=== PATIENT | female | born 1950 ===

== ENCOUNTER 2016-09-26 16:12 | Observation (INO) | payer OTHER ==
[2016-09-26] MEDS ORDERED: Aspirin 325 mg EC Tablets PO STA (17:16)
--- NOTE | 2016-09-26 17:43 | RAD ---
HISTORY: chest pain COMPARISON: None available. TECHNIQUE: Chest, one view. FINDINGS: LUNGS: No focal consolidation. Scattered probable punctate calcified granulomas. Please note that chest x-ray has limited sensitivity for the detection of pulmonary masses. PLEURA: No significant pleural effusion identified. No definite pneumothorax . CARDIOVASCULAR: The cardiomediastinal silhouette appears within normal limits of size. OSSEOUS STRUCTURES: Degenerative changes. VISUALIZED UPPER ABDOMEN: Unremarkable. OTHER FINDINGS: None. IMPRESSION: Scattered probable calcified granulomas. No focal consolidation, significant pleural effusion, or definite pneumothorax identified.
[2016-09-26 17:50] LABS: BASO # 0.1 K/uL (0.0-0.2); BASO % 0.9 % (0.0-2.0); EOS # 0.1 K/uL (0.0-0.7); EOS % 1.7 % (0.0-4.0); LYMPH % 35.2 % (20.0-40.0); MEAN CORPUSCULAR HEMOGLOBIN 29.2 pg (27.0-31.0); MEAN CORPUSCULAR HGB CONC 33.2 g/dL (33.0-37.0); MEAN PLATELET VOLUME 8.4 fL (7.2-11.7); MONO # 0.4 K/uL (0.0-0.8); MONO % 5.1 % (0.0-10.0); NEUT # 4.9 K/uL (1.8-7.0); NEUT % 57.1 % (50.0-75.0); RBC 3.76 Mil/uL (3.80-5.20); RED CELL DISTRIBUTION WIDTH 12.8 % (11.5-14.5); WHITE BLOOD COUNT 8.5 K/uL (4.8-10.8)
[2016-09-26 18:00] LABS: ALBUMIN 4.1 g/dL (3.5-5.0)
[2016-09-26 18:03] LABS: ALB/GLOB RATIO 1.1 (1.0-2.1); AST/SGOT 20 U/L (14-36); GFR AFRICAN-AMERICAN > 60; GFR NON-AFRICAN AMERICAN > 60
[2016-09-26 18:04] LABS: ALT/SGPT 30 U/L (9-52); BLOOD UREA NITROGEN 20 mg/dL (7-17); CALCIUM 8.9 mg/dl (8.6-10.4)
[2016-09-26 18:12] LABS: B-TYPE NATRIURETIC PEPTIDE 155 pg/mL (0-900)
[2016-09-26 18:14] LABS: URINE BILIRUBIN NEGATIVE (NEGATIVE); URINE BLOOD NEGATIVE (NEGATIVE); URINE CLARITY Clear (Clear); URINE COLOR Straw (YELLOW); URINE GLUCOSE (UA) NORMAL (Normal); URINE LEUKOCYTE ESTERASE NEG Leu/uL (Negative); URINE NITRATE NEGATIVE (NEGATIVE); URINE PROTEIN NEGATIVE (NEGATIVE); URINE UROBILINOGEN NORMAL mg/dL (0.2-1.0)
--- NOTE | 2016-09-26 18:35 | C.PDOC ---
History Of Present Illness Pt is a 65 yr old female with a PMH of HTN and DM who c/o left sided chest pain both last night and this morning. She's never had chest pain before (no hospitalizations or ER visits for CP). Pt went to her PMD Dr. Megan Solano and PMD recommended pt go to [facility] for an EKG. Pt w/ no chest pain now. When she did have the CP, it was worse with deep inspiration. PMD: Dr. Megan Solano Time Seen by Provider: 09/26/16 17:08 Chief Complaint (Nursing): Chest Pain History Per: Patient Past Medical History Reviewed: Historical Data, Nursing Documentation, Vital Signs Vital Signs: Last Vital Signs Temp 98.6 F 09/26/16 16:22 Pulse 67 09/26/16 16:22 Resp 20 09/26/16 16:22 BP 166/83 H 09/26/16 16:22 Pulse Ox 99 09/26/16 18:37 - Medical History PMH: Diabetes, HTN Surgical History: Appendectomy Family History: States: [place], CAD - Social History Hx Tobacco Use: No Hx Alcohol Use: No Hx Substance Use: No - Immunization History Hx Tetanus Toxoid Vaccination: No Hx Influenza Vaccination: Yes Hx Pneumococcal Vaccination: Yes Review Of Systems Review Of Systems: ROS cannot be obtained secondary to pt's inabilty to answer questions. Constitutional: Negative for: Fever Cardiovascular: Positive for: Chest Pain Respiratory: Positive for: Shortness of Breath Gastrointestinal: Negative for: Nausea, Vomiting Musculoskeletal: Negative for: Neck Pain Physical Exam - Physical Exam Appears: Well, Non-toxic, No Acute Distress Skin: Normal Color, Warm, Dry Head: Atraumatic Eye(s): bilateral: Normal Inspection, EOMI Ear(s): Bilateral: Normal Nose: Normal Oral Mucosa: Moist Tongue: Normal Appearing Lips: Normal Appearing Teeth: Normal Dentition Gingiva: Normal Appearing Throat: Normal Neck: Normal, Normal ROM Lymphatic: Deferred Chest: Symmetrical Cardiovascular: Rhythm Regular Respiratory: Normal Breath Sounds, No Rales, No Rhonchi, No Wheezing Gastrointestinal/Abdominal: Normal Exam, Bowel Sounds, Soft, No Tenderness Rectal: Deferred Back: Normal Inspection Extremity: Normal ROM Extremity: Bilateral: Atraumatic, Normal ROM Pulses: Left Radial: Normal, Right Radial: Normal Neurological/Psych: Oriented x3 ED Course And Treatment - Laboratory Results Result Diagrams: 09/26/16 17:45 09/26/16 17:45 O2 Sat by Pulse Oximetry: 99 Medical Decision Making Medical Decision Making: Initial Impression: Chest pain--consider ACS Initial Plan: Will activate chest pain order set 6:53 PM-Pt endorsed to Dr. Camden Rodriguez for hospitalization. Because of risk factors (DM and HTN and first time w/ chest pain), will hospitalize as observation case. Disposition - Disposition Disposition: HOSPITALIZED Disposition Time: 18:52 Condition: STABLE Print Language: MACEDONIAN - Clinical Impression Clinical Impression: Chest pain at rest Decision To Admit - Pt Status Changed To: Hospital Disposition Of: Observation - . Bed Request Type: Telemetry Admitting Physician: Jamie Rodriguez Patient Diagnosis: Chest pain at rest
--- NOTE | 2016-09-26 19:25 | CP.PCM.HP ---
<Maurisio Rivera - Last Filed: 09/26/16 21:57> History of Present Illness - History of Present Illness History of Present Illness: CC: cough x3 days + chest pain since last night HPI: This 65 yr old female with a PMH of HTN and DM - presents to the ED c/o 2 episodes of left sided chest pain, one last night and one this morning at 10am. Both episodes occurred at rest, lasted for approximately 1 minute, and resolved spontaneously. She reports that each time she developed chest pain, she took deep breaths and that helped resolved the pain. However, she admits that she has had a non-productive intermittent cough for the past 3 days, and the coughing episodes caused her to develop right sides chest pain along the sternal border. Currently, when she takes deep breaths or palpates her R chest, the right sided chest pain is reproduced. She became worried this morning, and went to her PMD Dr. Megan Solano, who recommended her to come to the ED for an EKG. Denies f/c, diaphoresis, weakness, change in vision, current chest pain at rest, SOB, abdominal pain, n/v, d/c, LE swelling or any additional complaints. Of note, she also developed a similar episode of chest pain at rest while in [facility] 1 year ago. At that time, it occurred while picking up a gallon of milk. She received oxygen in the ED, but was not prescribed any medications at that time. 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 PMHx: Diabetes, HTN PSHx: Appendectomy Meds: Metformin ER 500mg PO qd; Norvasc 10mg PO qd Allergies: NKDA FamHx: Mom of [place] at 92yo; Dad unknown. 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 PMD: Dr. Megan Solano Present on Admission - Present on Admission Any Indicators Present on Admission: No Review of Systems - Constitutional Constitutional: absent: Chills, Excessive Sweating, Headache - EENT Eyes: absent: Blind Spots, Change in Vision Ears: absent: Ear Discharge, Ear Pain Nose/Mouth/Throat: absent: Nasal Congestion, Nasal Discharge - Cardiovascular Cardiovascular: As Per HPI. absent: Chest Pain, Chest Pain at Rest, Diaphoresis , Dyspnea, Edema, Palpitations - Respiratory Respiratory: As Per HPI, Cough. absent: Dyspnea, Dyspnea on Exertion, Chest Congestion - Gastrointestinal Gastrointestinal: absent: Bloating, Diarrhea, Nausea, Vomiting - Genitourinary Genitourinary: absent: Difficulty Urinating, Dysuria - Musculoskeletal Musculoskeletal: absent: Arthralgias, Back Pain - Integumentary Integumentary: absent: Bleeding Lesions, Lesions - Neurological Neurological: absent: Abnormal Hearing, Confusion, Tingling, Weakness - Psychiatric Psychiatric: absent: Anhedonia, Anxiety - Endocrine Endocrine: absent: Excessive Sweating, Fatigue - Hematologic/Lymphatic Hematologic: absent: Easy Bleeding, Easy Bruising, Lymphadenopathy Past Patient History - Past Social History Smoking Status: Never Smoked - CARDIAC Hx Hypertension: Yes - ENDOCRINE/METABOLIC Hx Diabetes Mellitus Type 2: Yes - PSYCHIATRIC Hx Substance Use: No - SURGICAL HISTORY Hx Appendectomy: Yes - ANESTHESIA Hx Anesthesia: No Hx Anesthesia Reactions: No Meds Allergies/Adverse Reactions: Allergies Allergy/AdvReac Type Severity Reaction Status Date / Time No Known Allergies Allergy Verified 09/26/16 16:31 Physical Exam - Constitutional Appears: Non-toxic, No Acute Distress - Head Exam Head Exam: ATRAUMATIC, NORMAL INSPECTION - Eye Exam Eye Exam: EOMI, Normal appearance, PERRL Pupil Exam: NORMAL ACCOMODATION - ENT Exam ENT Exam: Mucous Membranes Moist - Neck Exam Neck exam: Positive for: Normal Inspection. Negative for: Lymphadenopathy - Respiratory Exam Respiratory Exam: Clear to Auscultation Bilateral, NORMAL BREATHING PATTERN. absent: Rhonchi, Wheezes Additional comments: +cough - Cardiovascular Exam Cardiovascular Exam: REGULAR RHYTHM, +S1, +S2. absent: Gallop, Rubs, Systolic Murmur Additional comments: Right sided sternal chest pain reproducible to palpation along insertion of ribs 3-5 - GI/Abdominal Exam GI & Abdominal Exam: Normal Bowel Sounds, Soft. absent: Firm, Tenderness - Extremities Exam Extremities exam: Positive for: normal capillary refill, normal inspection, pedal pulses present. Negative for: pedal edema, tenderness - Back Exam Back exam: NORMAL INSPECTION. absent: CVA tenderness (L), CVA tenderness (R) - Neurological Exam Neurological exam: Alert, CN II-XII Intact, Oriented x3, Reflexes Normal - Psychiatric Exam Psychiatric exam: Normal Affect, Normal Mood - Skin Skin Exam: Dry, Intact, Normal Color, Warm Results - Vital Signs Recent Vital Signs: Last Vital Signs Temp 98.6 F 09/26/16 16:22 Pulse 67 09/26/16 16:22 Resp 20 09/26/16 16:22 BP 166/83 H 09/26/16 16:22 Pulse Ox 99 09/26/16 18:54 - Labs Result Diagrams: 09/26/16 17:45 09/26/16 17:45 Labs: Laboratory Results - last 24 hr 09/26/16 09/26/16 09/26/16 17:45 17:45 17:45 WBC 8.5 RBC 3.76 L Hgb 11.0 Hct 33.1 L MCV 88.0 MCH 29.2 MCHC 33.2 RDW 12.8 Plt Count 298 MPV 8.4 Neut % (Auto) 57.1 Lymph % (Auto) 35.2 Gibson % (Auto) 5.1 Eos % (Auto) 1.7 Baso % (Auto) 0.9 Neut # 4.9 Lymph # 3.0 Gibson # 0.4 Eos # 0.1 Baso # 0.1 PT 11.0 INR 1.0 APTT 33 Sodium 136 Potassium 4.2 Chloride 100 Carbon Dioxide 22 Anion Gap 18 BUN 20 H Creatinine 0.9 Est GFR ( Amer) > 60 Est GFR (Non-Af Amer) > 60 Random Glucose 151 H Calcium 8.9 Total Bilirubin 0.4 AST 20 ALT 30 Alkaline Phosphatase 150 H Total Creatine Kinase 48 Troponin I < 0.0120 NT-Pro-B Natriuret Pep 155 Total Protein 7.9 Albumin 4.1 Globulin 3.8 Albumin/Globulin Ratio 1.1 Urine Color Urine Clarity Urine pH Ur Specific Mims Urine Protein Urine Glucose (UA) Urine Ketones Urine Blood Urine Nitrate Urine Bilirubin Urine Urobilinogen Ur Leukocyte Esterase Urine WBC (Auto) Urine RBC (Auto) 09/26/16 18:04 WBC RBC Hgb Hct MCV MCH MCHC RDW Plt Count MPV Neut % (Auto) Lymph % (Auto) Gibson % (Auto) Eos % (Auto) Baso % (Auto) Neut # Lymph # Gibson # Eos # Baso # PT INR APTT Sodium Potassium Chloride Carbon Dioxide Anion Gap BUN Creatinine Est GFR ( Amer) Est GFR (Non-Af Amer) Random Glucose Calcium Total Bilirubin AST ALT Alkaline Phosphatase Total Creatine Kinase Troponin I NT-Pro-B Natriuret Pep Total Protein Albumin Globulin Albumin/Globulin Ratio Urine Color Straw Urine Clarity Clear Urine pH 6.0 Ur Specific Mims 1.008 Urine Protein Negative Urine Glucose (UA) Normal Urine Ketones Negative Urine Blood Negative Urine Nitrate Negative Urine Bilirubin Negative Urine Urobilinogen Normal Ur Leukocyte Esterase Neg Urine WBC (Auto) < 1 Urine RBC (Auto) < 1 Assessment & Plan - Assessment and Plan (Free Text) Assessment: Chest pain KRISHNA negative x2 f/u KRISHNA x2 f/u A1c, TSH, free T4, FLP, labs f/u echo ASA 81mg PO qd ASA 325 given in ED HTN BP on admission 166/83 Continue home Norvasc 10mg PO qd -Patient reports taking another home BP med, will be brought in tomorrow. However she admits that at times she becomes hypotensive with both medications. Diabetes f/u A1c glucose on admission 151 continue come Metformin ER 500 PO qd Novolog ISS - low dose Prophylaxis heart healthy diet SCDs Pepcid Heparin - Date & Time Date: 09/26/16 Time: 19:45 <Faustino Mccormick - Last Filed: 09/27/16 06:31> Results - Vital Signs Recent Vital Signs: Last Vital Signs Temp 98.2 F 09/27/16 04:00 Pulse 64 09/27/16 04:00 Resp 20 09/27/16 04:00 BP 127/66 09/27/16 04:00 Pulse Ox 98 09/27/16 04:00 - Labs Result Diagrams: 09/26/16 17:45 09/26/16 17:45 Labs: Laboratory Results - last 24 hr 09/26/16 09/26/16 09/26/16 20:28 20:28 20:43 POC Glucose (mg/dL) Hemoglobin A1c 12.9 H Total Creatine Kinase CK-MB (Mass) Troponin I, Quant Triglycerides 276 H Cholesterol 194 LDL Cholesterol Direct 118 HDL Cholesterol 38 Free T4 1.08 TSH 3rd Generation 7.15 H 09/26/16 09/27/16 21:23 01:18 POC Glucose (mg/dL) 233 H Hemoglobin A1c Total Creatine Kinase 49 CK-MB (Mass) 0.41 Troponin I, Quant < 0.0120 Triglycerides Cholesterol LDL Cholesterol Direct HDL Cholesterol Free T4 TSH 3rd Generation Assessment & Plan - Date & Time Date: 09/27/16 (I have seen and examined the patient. I agree with the findings and plan of care as documented by Dr. Rivera. Patient with chest pain. History of diabetes and hypertension. Continue home meds. Aspirin and Statin. ROMIx3 with EKG. 2D Echo. Monitor for acute changes.) Time: 06:30 Attending/Attestation - Attestation I have personally seen and examined this patient.: Yes I have fully participated in the care of the patient.: Yes I have reviewed all pertinent clinical information: Yes
[2016-09-26] MEDS: (Novolog) Insulin Aspart, Recombinant 100 u/ml 10 ml vial SC SCH (22:14)
[2016-09-27 02:01] LABS: CK-MB 0.41 ng/mL (0.0-3.38)
[2016-09-27 05:01] VITALS: O2SAT 98
[2016-09-27 06:45] LABS: BASO # 0.1 K/uL (0.0-0.2); BASO % 0.7 % (0.0-2.0); EOS # 0.2 K/uL (0.0-0.7); EOS % 2.1 % (0.0-4.0); HEMOGLOBIN 10.7 g/dL (11.0-16.0); LYMPH # 2.4 K/uL (1.0-4.3); LYMPH % 27.5 % (20.0-40.0); MEAN CELL VOLUME 87.8 fL (81.0-99.0); MEAN CORPUSCULAR HEMOGLOBIN 29.5 pg (27.0-31.0); MEAN CORPUSCULAR HGB CONC 33.6 g/dL (33.0-37.0); MEAN PLATELET VOLUME 8.4 fL (7.2-11.7); MONO # 0.5 K/uL (0.0-0.8); MONO % 6.3 % (0.0-10.0); NEUT # 5.5 K/uL (1.8-7.0); NEUT % 63.4 % (50.0-75.0); RBC 3.63 Mil/uL (3.80-5.20); RED CELL DISTRIBUTION WIDTH 13.1 % (11.5-14.5); WHITE BLOOD COUNT 8.6 K/uL (4.8-10.8)
[2016-09-27 07:18] LABS: ALBUMIN 3.6 g/dL (3.5-5.0)
[2016-09-27 07:21] LABS: ALB/GLOB RATIO 1.1 (1.0-2.1); AST/SGOT 20 U/L (14-36); BLOOD UREA NITROGEN 20 mg/dL (7-17); GFR AFRICAN-AMERICAN > 60; GFR NON-AFRICAN AMERICAN > 60
[2016-09-27 07:22] LABS: ALT/SGPT 26 U/L (9-52); CALCIUM 8.7 mg/dl (8.6-10.4); MAGNESIUM 1.7 mg/dL (1.6-2.3)
[2016-09-27] MEDS: (Novolog) Insulin Aspart, Recombinant 100 u/ml 10 ml vial SC SCH ×2 (07:49→12:17)
[2016-09-27 09:06] LABS: CK-MB 0.32 ng/mL (0.0-3.38)
--- NOTE | 2016-09-27 13:04 | CP.PCM.CON ---
History of Present Illness - History of Present Illness History of Present Illness: Cardiology Consult note for Dr. Michaud Reason for consult: chest pain; DM and HTN 65 yo female PMHx of HTN and DM - presented to the ED 09/26 with 2 episodes of left sided chest pain occurring at rest lasting for approximately 1 minute and resolved spontaneously. She reported the pain resolved with deep breaths. She also complained of a non-productive intermittent cough for the past 3 days, and the coughing episodes caused her to develop right sides chest pain along the sternal border. Patient went to visit PMD who directed her to come in to the ER. Since admisison , patient's chest pain resolved. She had negative KRISHNA x 3. Upon seeing patient she denied any fever, chills, chest pain, palpitations, SOB , cough, abdominal pain, nausea, vomiting, bowel/bladder complaints, pain/ swelling in her legs bilaterally. Patient did complain of pain in her R large toe. PMD: Dr. Megan Solano PMHx: Diabetes, HTN PSurgHx: Appendectomy Meds: Metformin ER 500mg PO qd; Norvasc 10mg PO qd Allergies: NKDA FamHx: Mom of [place] at 92yo; Dad unknown. 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 Review of Systems - Constitutional Constitutional: As Per HPI. absent: Chills, Fever - EENT Eyes: As Per HPI. absent: Blurred Vision Ears: As Per HPI. absent: Dizziness Nose/Mouth/Throat: As Per HPI. absent: Sore Throat - Cardiovascular Cardiovascular: As Per HPI. absent: Chest Pain, Chest Pain with Activity, Dyspnea, Dyspnea on Exertion, Edema, Leg Edema - Respiratory Respiratory: As Per HPI. absent: Cough, Dyspnea, Dyspnea on Exertion, Chest Congestion - Gastrointestinal Gastrointestinal: As Per HPI. absent: Abdominal Pain, Constipation, Diarrhea, Nausea, Vomiting - Genitourinary Genitourinary: As Per HPI. absent: Dysuria - Musculoskeletal Musculoskeletal: As Per HPI. absent: Back Pain, Numbness, Tingling Additional comments: pain in R large toe - Integumentary Integumentary: As Per HPI, Dry Skin (RLE) - Neurological Neurological: As Per HPI. absent: Dizziness, Headaches - Psychiatric Psychiatric: As Per HPI. absent: Anxiety, Depression Past Patient History - Past Social History Smoking Status: Never Smoked - CARDIAC Hx Hypertension: Yes - PULMONARY Hx Respiratory Disorders: No - NEUROLOGICAL Hx Neurological Disorder: No - HEENT Hx HEENT Problems: No - RENAL Hx Chronic Kidney Disease: No - ENDOCRINE/METABOLIC Hx Diabetes Mellitus Type 2: Yes - HEMATOLOGICAL/ONCOLOGICAL Hx Blood Transfusions: No - INTEGUMENTARY Other/Comment: right big toe dry wound - MUSCULOSKELETAL/RHEUMATOLOGICAL Hx Falls: No - GASTROINTESTINAL Hx Gastrointestinal Disorders: No - GENITOURINARY/GYNECOLOGICAL Hx Genitourinary Disorders: No - PSYCHIATRIC Hx Substance Use: No - SURGICAL HISTORY Hx Appendectomy: Yes - ANESTHESIA Hx Anesthesia: No Hx Anesthesia Reactions: No Meds Allergies/Adverse Reactions: Allergies Allergy/AdvReac Type Severity Reaction Status Date / Time No Known Allergies Allergy Verified 09/26/16 16:31 - Medications Medications: Current Medications Amlodipine Besylate (Norvasc) 10 mg PO DAILY [facility] Last Admin: 09/27/16 09:17 Dose: 10 mg Aspirin (Aspirin Chewable) 81 mg PO DAILY [facility] Last Admin: 09/27/16 09:17 Dose: 81 mg Famotidine (Pepcid) 40 mg PO DAILY [facility] Last Admin: 09/27/16 09:17 Dose: 40 mg Heparin Sodium (Porcine) (Heparin) 5,000 units SC Q8 [facility] Last Admin: 09/27/16 05:47 Dose: 5,000 units Insulin Aspart (Novolog) 0 unit SC ACHS [facility] PRN Reason: Protocol Last Admin: 09/27/16 12:17 Dose: 1 unit Lisinopril (Zestril) 2.5 mg PO DAILY [facility] Metformin HCl (Glucophage) 1,000 mg PO BID [facility] Rosuvastatin Calcium (Crestor) 10 mg PO HS [facility] Physical Exam - Constitutional Appears: Well, Non-toxic, No Acute Distress - Head Exam Head Exam: ATRAUMATIC, NORMAL INSPECTION, NORMOCEPHALIC - Eye Exam Eye Exam: EOMI, Normal appearance, PERRL. absent: Conjunctival injection, Scleral icterus Pupil Exam: NORMAL ACCOMODATION - ENT Exam ENT Exam: Mucous Membranes Moist - Neck Exam Neck exam: Positive for: Full Rom, Normal Inspection - Respiratory Exam Respiratory Exam: Clear to Auscultation Bilateral, NORMAL BREATHING PATTERN. absent: Accessory Muscle Use, Rales, Rhonchi, Wheezes, Respiratory Distress - Cardiovascular Exam Cardiovascular Exam: REGULAR RHYTHM, RRR, +S1, +S2. absent: JVD, Systolic Murmur - GI/Abdominal Exam GI & Abdominal Exam: Normal Bowel Sounds, Soft. absent: Firm, Guarding, Rigid, Tenderness - Extremities Exam Extremities exam: Positive for: tenderness (to palpation RLE), pedal pulses present. Negative for: pedal edema Additional comments: R first metatarsal painful to palation RLE tender to palpation- patient was told she has Herpes - Back Exam Back exam: NORMAL INSPECTION. absent: rash noted - Neurological Exam Neurological exam: Alert, Oriented x3 - Psychiatric Exam Psychiatric exam: Normal Affect, Normal Mood - Skin Skin Exam: Dry, Intact, Normal Color, Warm Results - Vital Signs Recent Vital Signs: Last Vital Signs Temp 98.4 F 09/27/16 07:05 Pulse 64 09/27/16 07:05 Resp 18 09/27/16 07:05 BP 126/70 09/27/16 07:05 Pulse Ox 98 09/27/16 07:05 - Labs Result Diagrams: 09/27/16 06:23 09/27/16 06:23 Labs: Laboratory Results - last 24 hr 09/26/16 09/26/16 09/26/16 20:28 20:28 20:43 WBC RBC Hgb Hct MCV MCH MCHC RDW Plt Count MPV Neut % (Auto) Lymph % (Auto) Knox % (Auto) Eos % (Auto) Baso % (Auto) Neut # Lymph # Knox # Eos # Baso # APTT Sodium Potassium Chloride Carbon Dioxide Anion Gap BUN Creatinine Est GFR ( Amer) Est GFR (Non-Af Amer) POC Glucose (mg/dL) Random Glucose Hemoglobin A1c 12.9 H Calcium Phosphorus Magnesium Total Bilirubin AST ALT Alkaline Phosphatase Total Creatine Kinase CK-MB (Mass) Troponin I, Quant Total Protein Albumin Globulin Albumin/Globulin Ratio Triglycerides 276 H Cholesterol 194 LDL Cholesterol Direct 118 HDL Cholesterol 38 Free T4 1.08 TSH 3rd Generation 7.15 H 09/26/16 09/27/16 09/27/16 21:23 01:18 06:05 WBC RBC Hgb Hct MCV MCH MCHC RDW Plt Count MPV Neut % (Auto) Lymph % (Auto) Knox % (Auto) Eos % (Auto) Baso % (Auto) Neut # Lymph # Knox # Eos # Baso # APTT Sodium Potassium Chloride Carbon Dioxide Anion Gap BUN Creatinine Est GFR ( Amer) Est GFR (Non-Af Amer) POC Glucose (mg/dL) 233 H 231 H Random Glucose Hemoglobin A1c Calcium Phosphorus Magnesium Total Bilirubin AST ALT Alkaline Phosphatase Total Creatine Kinase 49 CK-MB (Mass) 0.41 Troponin I, Quant < 0.0120 Total Protein Albumin Globulin Albumin/Globulin Ratio Triglycerides Cholesterol LDL Cholesterol Direct HDL Cholesterol Free T4 TSH 3rd Generation 09/27/16 09/27/16 09/27/16 06:23 06:23 06:23 WBC 8.6 RBC 3.63 L Hgb 10.7 L Hct 31.8 L MCV 87.8 MCH 29.5 MCHC 33.6 RDW 13.1 Plt Count 303 MPV 8.4 Neut % (Auto) 63.4 Lymph % (Auto) 27.5 Knox % (Auto) 6.3 Eos % (Auto) 2.1 Baso % (Auto) 0.7 Neut # 5.5 Lymph # 2.4 Knox # 0.5 Eos # 0.2 Baso # 0.1 APTT 32 Sodium 135 Potassium 4.3 Chloride 101 Carbon Dioxide 24 Anion Gap 15 BUN 20 H Creatinine 0.9 Est GFR ( Amer) > 60 Est GFR (Non-Af Amer) > 60 POC Glucose (mg/dL) Random Glucose 228 H Hemoglobin A1c Calcium 8.7 Phosphorus 4.1 Magnesium 1.7 Total Bilirubin 0.4 AST 20 ALT 26 Alkaline Phosphatase 152 H Total Creatine Kinase CK-MB (Mass) Troponin I, Quant Total Protein 7.0 Albumin 3.6 Globulin 3.4 Albumin/Globulin Ratio 1.1 Triglycerides Cholesterol LDL Cholesterol Direct HDL Cholesterol Free T4 TSH 3rd Generation 09/27/16 09/27/16 09/27/16 08:35 11:57 12:12 WBC RBC Hgb Hct MCV MCH MCHC RDW Plt Count MPV Neut % (Auto) Lymph % (Auto) Knox % (Auto) Eos % (Auto) Baso % (Auto) Neut # Lymph # Knox # Eos # Baso # APTT Sodium Potassium Chloride Carbon Dioxide Anion Gap BUN Creatinine Est GFR ( Amer) Est GFR (Non-Af Amer) POC Glucose (mg/dL) 195 H 169 H Random Glucose Hemoglobin A1c Calcium Phosphorus Magnesium Total Bilirubin AST ALT Alkaline Phosphatase Total Creatine Kinase 42 CK-MB (Mass) 0.32 Troponin I, Quant < 0.0120 Total Protein Albumin Globulin Albumin/Globulin Ratio Triglycerides Cholesterol LDL Cholesterol Direct HDL Cholesterol Free T4 TSH 3rd Generation Assessment & Plan - Assessment and Plan (Free Text) Assessment: 65 yo female PMHx of HTN and DM - presented to the ED 09/26 with 2 episodes of left sided chest pain Cardiology consulted for chest pain. Plan: -KRISHNA negative x 3 -EKG unremarkable x 3 -Echo prelim read was unremarkable f/u official Echo read -Lipid panel T Cholesterol: 194 LDL: 118 HDL: 38 -Thyroid panel Free T4: 1.08 TSH: 7.15 -HgbA1c: 12.9 -Continue current management Norvasc 10mg po daily ASA 81mg po daily Lisinopril 2.5mg po daily Crestor 10mg po hs -patient to have outpatient stress test and to follow up with Dr. Michaud in clinic after discharge Case discussed with Dr. Keily Bernal PGY2
--- NOTE | 2016-09-27 15:34 | CARD ---
APPROVED REPORT EXAM: Two-dimensional and M-mode echocardiogram with Doppler and color Doppler. Other Information Quality : GoodRhythm : NSR INDICATION Chest Pain RISK FACTORS Hypertension Diabetes M-Mode DIMENSIONS RVDd2.07 (2.1-3.2cm)Left Atrium (MM)3.61 (2.5-4.0cm) IVSd1.31 (0.7-1.1cm)Aortic Root2.40 (2.2-3.7cm) LVDd4.13 (4.0-5.6cm)Aortic Cusp Exc.1.67 (1.5-2.0cm) PWd0.91 (0.7-1.1cm)FS (%) 46 % LVDs2.25 (2.0-3.8cm)LVEF (%)77 (>50%) Mitral Valve MV E Hczwrywi67.4cm/sMV A Jtnubuey02.5cm/sE/A ratio1.2 TDI E/Lateral E'0.0E/Medial E'0.0 Tricuspid Valve TR Peak [id number]/sTR Peak [id number] LEFT VENTRICLE The left ventricle is normal size. Septal thickness is mildly increased.1.3 cm. The left ventricular function is normal. The left ventricular ejection fraction is within the normal range. About 60%. No regional wall motion abnormalities noted. The left ventricular diastolic function is normal. No left ventricle thrombus noted on this study. There is no ventricular septal defect visualized. There is no left ventricular aneurysm. There is no mass noted in the left ventricle. RIGHT VENTRICLE The right ventricle is normal size. There is normal right ventricular wall thickness. The right ventricular systolic function is normal. ATRIA The left atrium size is normal. The right atrium size is normal. The interatrial septum is intact with no evidence for an atrial septal defect. AORTIC VALVE The aortic valve is normal in structure and function. No aortic regurgitation is present. There is no aortic valvular stenosis. There is no aortic valvular vegetation. MITRAL VALVE The mitral valve is normal in structure and function. There is no evidence of mitral valve prolapse. There is no mitral valve stenosis. There is no mitral valve regurgitation noted. TRICUSPID VALVE The tricuspid valve is normal in structure and function. There is mild tricuspid valve regurgitation noted. There is no tricuspid valve prolapse or vegetation. There is no tricuspid valve stenosis. PULMONIC VALVE The pulmonary valve is normal in structure and function. There is no pulmonic valvular regurgitation. There is no pulmonic valvular stenosis. GREAT VESSELS The aortic root is normal in size. The ascending aorta is normal in size. The pulmonary artery is normal. The IVC is normal in size and collapses >50% with inspiration. PERICARDIAL EFFUSION The pericardium appears normal. There is no pleural effusion. <Conclusion> Normal LV systolic function. Septal thickness is mildly increased.1.3 cm. Normal Doppler
--- NOTE | 2016-09-27 15:51 | CP.PCM.DIS ---
Provider - Provider Date of Admission: 09/26/16 18:50 Attending physician: Jamie Rodriguez MD Time Spent in preparation of Discharge (in minutes): 45 Hospital Course - Lab Results Lab Results: Most Recent Lab Values WBC 8.6 K/uL (4.8-10.8) 09/27/16 06:23 RBC 3.63 Mil/uL (3.80-5.20) L 09/27/16 06:23 Hgb 10.7 g/dL (11.0-16.0) L 09/27/16 06:23 Hct 31.8 % (34.0-47.0) L 09/27/16 06:23 MCV 87.8 fL (81.0-99.0) 09/27/16 06:23 MCH 29.5 pg (27.0-31.0) 09/27/16 06:23 MCHC 33.6 g/dL (33.0-37.0) 09/27/16 06:23 RDW 13.1 % (11.5-14.5) 09/27/16 06:23 Plt Count 303 K/uL (130-400) 09/27/16 06:23 MPV 8.4 fL (7.2-11.7) 09/27/16 06:23 Neut % (Auto) 63.4 % (50.0-75.0) 09/27/16 06:23 Lymph % (Auto) 27.5 % (20.0-40.0) 09/27/16 06:23 [place] % (Auto) 6.3 % (0.0-10.0) 09/27/16 06:23 Eos % (Auto) 2.1 % (0.0-4.0) 09/27/16 06:23 Baso % (Auto) 0.7 % (0.0-2.0) 09/27/16 06:23 Neut # 5.5 K/uL (1.8-7.0) 09/27/16 06:23 Lymph # 2.4 K/uL (1.0-4.3) 09/27/16 06:23 [place] # 0.5 K/uL (0.0-0.8) 09/27/16 06:23 Eos # 0.2 K/uL (0.0-0.7) 09/27/16 06:23 Baso # 0.1 K/uL (0.0-0.2) 09/27/16 06:23 PT 11.0 SECONDS (9.7-12.2) 09/26/16 17:45 INR 1.0 09/26/16 17:45 APTT 32 SECONDS (21-34) 09/27/16 06:23 Sodium 135 mmol/L (132-148) 09/27/16 06:23 Potassium 4.3 mmol/L (3.6-5.2) 09/27/16 06:23 Chloride 101 mmol/L (98-107) 09/27/16 06:23 Carbon Dioxide 24 mmol/L (22-30) 09/27/16 06:23 Anion Gap 15 (10-20) 09/27/16 06:23 BUN 20 mg/dL (7-17) H 09/27/16 06:23 Creatinine 0.9 MG/DL (0.7-1.2) 09/27/16 06:23 Est GFR ( Amer) > 60 09/27/16 06:23 Est GFR (Non-Af Amer) > 60 09/27/16 06:23 POC Glucose (mg/dL) 169 mg/dL (65-110) H 09/27/16 12:12 Random Glucose 228 mg/dL (65-105) H 09/27/16 06:23 Hemoglobin A1c 12.9 % (4.2-6.5) H 09/26/16 20:28 Calcium 8.7 mg/dl (8.6-10.4) 09/27/16 06:23 Phosphorus 4.1 mg/dL (2.5-4.5) 09/27/16 06:23 Magnesium 1.7 mg/dL (1.6-2.3) 09/27/16 06:23 Total Bilirubin 0.4 mg/dL (0.2-1.3) 09/27/16 06:23 AST 20 U/L (14-36) 09/27/16 06:23 ALT 26 U/L (9-52) 09/27/16 06:23 Alkaline Phosphatase 152 U/L (38-126) H 09/27/16 06:23 Total Creatine Kinase 42 U/L (30-135) 09/27/16 08:35 CK-MB (Mass) 0.32 ng/mL (0.0-3.38) 09/27/16 08:35 Troponin I < 0.0120 ng/mL (0.00-0.120) 09/26/16 17:45 Troponin I, Quant < 0.0120 ng/mL (0.00-0.120) 09/27/16 08:35 NT-Pro-B Natriuret Pep 155 pg/mL (0-900) 09/26/16 17:45 Total Protein 7.0 g/dL (6.3-8.3) 09/27/16 06:23 Albumin 3.6 g/dL (3.5-5.0) 09/27/16 06:23 Globulin 3.4 gm/dL (2.2-3.9) 09/27/16 06:23 Albumin/Globulin Ratio 1.1 (1.0-2.1) 09/27/16 06:23 Triglycerides 276 mg/dL (0-149) H 09/26/16 20:28 Cholesterol 194 mg/dL (0-199) 09/26/16 20:28 LDL Cholesterol Direct 118 mg/dL (0-129) 09/26/16 20:28 HDL Cholesterol 38 mg/dL (30-70) 09/26/16 20:28 Free T4 1.08 ng/dL (0.78-2.19) 09/26/16 20:43 TSH 3rd Generation 7.15 mIU/L (0.46-4.68) H 09/26/16 20:28 Urine Color Straw (YELLOW) 09/26/16 18:04 Urine Clarity Clear (Clear) 09/26/16 18:04 Urine pH 6.0 (5.0-8.0) 09/26/16 18:04 Ur Specific Hugo 1.008 (1.003-1.030) 09/26/16 18:04 Urine Protein Negative mg/dL (NEGATIVE) 09/26/16 18:04 Urine Glucose (UA) Normal mg/dL (Normal) 09/26/16 18:04 Urine Ketones Negative mg/dL (NEGATIVE) 09/26/16 18:04 Urine Blood Negative (NEGATIVE) 09/26/16 18:04 Urine Nitrate Negative (NEGATIVE) 09/26/16 18:04 Urine Bilirubin Negative (NEGATIVE) 09/26/16 18:04 Urine Urobilinogen Normal mg/dL (0.2-1.0) 09/26/16 18:04 Ur Leukocyte Esterase Neg Devon/uL (Negative) 09/26/16 18:04 Urine WBC (Auto) < 1 /hpf (0-5) 09/26/16 18:04 Urine RBC (Auto) < 1 /hpf (0-3) 09/26/16 18:04 - Hospital Course Hospital Course: As per admission: HPI: This 65 yr old female with a PMH of HTN and DM - presents to the ED c/o 2 episodes of left sided chest pain, one last night and one this morning at 10am. Both episodes occurred at rest, lasted for approximately 1 minute, and resolved spontaneously. She reports that each time she developed chest pain, she took deep breaths and that helped resolved the pain. However, she admits that she has had a non-productive intermittent cough for the past 3 days, and the coughing episodes caused her to develop right sides chest pain along the sternal border. Currently, when she takes deep breaths or palpates her R chest, the right sided chest pain is reproduced. She became worried this morning, and went to her PMD Dr. Megan Solano, who recommended her to come to the ED for an EKG. Denies f/c, diaphoresis, weakness, change in vision, current chest pain at rest, SOB, abdominal pain, n/v, d/c, LE swelling or any additional complaints. Of note, she also developed a similar episode of chest pain at rest while in [facility] 1 year ago. At that time, it occurred while picking up a gallon of milk. She received oxygen in the ED, but was not prescribed any medications at that time. 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 Hospital Course: Patients symptoms resolved upon arrival in the ED. While there, she was administered ASA 325 mg. Labs were ordered as follows: KRISHNA- negative x3. EKG was noted to be normal sinus rhythm with no acute ST changes Thyroid studies showed elevated TSH Lipid Panel showed elevated triglycerides however the remaining results were within normal limits. HGb A1c- 12.9 Echocardiogram findings: an EF of approximately 77%. Normal LV systolic function noted. Septal thickness mildly increased at 1.3 cm. Refer to complete report. Chest Xray: noted scattered probable punctate calcified granulomas . ( Refer to complete report) In light of patients complaints of cough, with imaging findings, a quantiferon gold study was ordered. Patient was started on home medications; however Angel inhibitor and crestor were added on board. Cardiology was counseled with recommendations to follow up for outpatient stress testing as well as continued follow up in the [facility]. Patient to follow up with PMD regarding continued management in light of lab results. Discharge instructions as follows: Please start the following new medication as prescribed: 1. Metformin 1000mg PO BID 2. Lisinopril 2.5mg PO daily 3. Aspirin 81mg PO daily 4. Crestor 10mg PO HS Please resume your home medication as prescribed: 1. Norvasc 10mg PO daily Please follow up with your primary care doctor, Dr. Cindy Solano within a week Please return to the hospital if symptoms resume. This is a brief summary of events. For a complete course, refer to the hospital record Discharge Exam - Head Exam Head Exam: ATRAUMATIC, NORMAL INSPECTION, NORMOCEPHALIC - Eye Exam Eye Exam: EOMI, Normal appearance - ENT Exam ENT Exam: Mucous Membranes Moist, Normal Exam - Respiratory Exam Respiratory Exam: Clear to PA & Lateral, NORMAL BREATHING PATTERN - GI/Abdominal Exam GI & Abdominal Exam: Normal Bowel Sounds, Soft - Extremities Exam Extremities exam: normal capillary refill, normal inspection - Neurological Exam Neurological exam: Alert, Oriented x3 - Psychiatric Exam Psychiatric exam: Normal Affect, Normal Mood - Skin Skin Exam: Dry, Normal Color, Warm Discharge Plan - Discharge Medications Prescriptions: amLODIPine [Norvasc] 10 mg PO DAILY #30 Lisinopril [Zestril] 2.5 mg PO DAILY #30 metFORMIN [glucOPHAGE] 1,000 mg PO BID #60 tab Rosuvastatin Calcium [Crestor] 10 mg PO HS #30 tab - Follow Up Plan Condition: STABLE Disposition: HOME/ ROUTINE Instructions: Lisinopril (By mouth), Amlodipine (By mouth), Metformin (By mouth ), Rosuvastatin (By mouth), Chest Pain (DC), Heart Healthy Diet (DC), Diabetic Foot Care (DC), Basic Carbohydrate Counting (DC), Meal Planning with the Plate Method (DC), Meal Planning with Diabetes Exchanges (DC), Hypertension (DC), Hyperlipidemia (DC) Additional Instructions: Please discharge patient home. Please start the following new medication as prescribed: 1. Metformin 1000mg PO BID 2. Lisinopril 2.5mg PO daily 3. Aspirin 81mg PO daily 4. Crestor 10mg PO HS Please resume your home medication as prescribed: 1. Norvasc 10mg PO daily Please follow up with your primary care doctor, Dr. Cindy Solano within a week Please return to the hospital if symptoms resume.
[2016-09-27 16:26] VITALS: BP 111/61; PULSE 71; RESP 20; TEMP 98.8
[2016-09-29 15:21] LABS: TB ANTIGEN MINUS NIL 0.61 IU/mL
== END 2016-09-27 17:48 | disposition home or self-care (01) ==
LOC: C.ER 16:12 → C.9E 18:50 → C.6T 20:07
PROVIDERS: ADMIT Internal Medicine; ATTEND Internal Medicine
DX: R07.9 Chest pain, unspecified (principal); E11.9 Type 2 diabetes mellitus without complications; E78.1 Pure hyperglyceridemia; I10 Essential (primary) hypertension; Z79.84 Long term (current) use of oral hypoglycemic drugs
CPT/HCPCS: 36415; 71010; 80053; 80061; 81001; 82550; 82948; 83036; 83735; 83880; 84100; 84439; 84443; 84484; 85025; 85610; 85730; 86480; 93306; 99285; G0378; J1644

== ENCOUNTER 2017-02-14 08:09 | Emergency (ER) | payer OTHER ==
[2017-02-14 08:10] VITALS: BMI 24.5
[2017-02-14 08:16] VITALS: O2SAT 98
[2017-02-14] MEDS ORDERED: Sodium Chloride 0.9% 1,000 ML IV ONE (08:40)
[2017-02-14] MEDS ORDERED: Sodium Chloride 0.9% 1,000 ML ONE (08:54)
[2017-02-14 09:20] LABS: BASO # 0.1 K/uL (0.0-0.2); BASO % 0.9 % (0.0-2.0); EOS # 0.1 K/uL (0.0-0.7); EOS % 1.5 % (0.0-4.0); HEMATOCRIT 35.2 % (34.0-47.0); LYMPH # 2.3 K/uL (1.0-4.3); LYMPH % 28.3 % (20.0-40.0); MEAN CELL VOLUME 87.6 fL (81.0-99.0); MEAN CORPUSCULAR HEMOGLOBIN 28.9 pg (27.0-31.0); MEAN PLATELET VOLUME 8.1 fL (7.2-11.7); MONO # 0.4 K/uL (0.0-0.8); RED CELL DISTRIBUTION WIDTH 13.6 % (11.5-14.5); WHITE BLOOD COUNT 8.1 K/uL (4.8-10.8)
[2017-02-14 09:21] LABS: RBC URINE 1 /hpf (0-3); URINE BILIRUBIN NEGATIVE (NEGATIVE); URINE BLOOD NEGATIVE (NEGATIVE); URINE COLOR Yellow (YELLOW); URINE GLUCOSE (UA) NORMAL (Normal); URINE KETONE NEGATIVE (NEGATIVE); URINE LEUKOCYTE ESTERASE 1+ Leu/uL (Negative); URINE PROTEIN NEGATIVE (NEGATIVE); URINE UROBILINOGEN NORMAL mg/dL (0.2-1.0); WBC URINE 5 /hpf (0-5)
[2017-02-14 09:32] LABS: ALKALINE PHOSPHATASE 104 U/L (38-126); ALT/SGPT 39 U/L (9-52); AST/SGOT 26 U/L (14-36); BILIRUBIN,TOTAL 0.4 mg/dL (0.2-1.3); BLOOD UREA NITROGEN 20 mg/dL (7-17); CALCIUM 8.8 mg/dl (8.6-10.4); CARBON DIOXIDE 28 mmol/L (22-30); CHLORIDE 102 mmol/L (98-107); GFR AFRICAN-AMERICAN > 60; GLUCOSE,RANDOM 205 mg/dL (65-105); POTASSIUM 4.3 mmol/L (3.6-5.2); SODIUM 139 mmol/L (132-148); TOTAL PROTEIN 9.3 g/dL (6.3-8.3)
[2017-02-14 09:43] LABS: ALB/GLOB RATIO 0.9 (1.0-2.1)
--- NOTE | 2017-02-14 09:56 | C.PDOC ---
History Of Present Illness 66 y/o female presents to ED with c/o nausea and vomiting with a headache this morning. Patient reports she has taken no medications symptoms this morning. Patient claims she does not have a fingerstick machine at home, but notes she takes her daily diabetes meds. Denies fever, chills, diarrhea, chest pain, SOB, or other assocaited symptoms. Time Seen by Provider: 02/14/17 08:34 Chief Complaint (Nursing): Dizziness/Lightheaded History Per: Patient History/Exam Limitations: no limitations Onset/Duration Of Symptoms: Days Current Symptoms Are (Timing): Still Present Fall Associated With With Symptoms: No Recent travel outside of the [place]: No Past Medical History Reviewed: Historical Data, Nursing Documentation, Vital Signs Vital Signs: Last Vital Signs Temp 98.2 F 02/14/17 10:07 Pulse 72 02/14/17 10:07 Resp 16 02/14/17 10:07 BP 123/98 H 02/14/17 10:07 Pulse Ox 98 02/14/17 11:24 - Medical History PMH: Diabetes, HTN, Hypothyroidism Surgical History: Appendectomy Family History: States: [place], CAD - Social History Hx Tobacco Use: No Hx Alcohol Use: No Hx Substance Use: No - Immunization History Hx Tetanus Toxoid Vaccination: No Hx Influenza Vaccination: Yes Hx Pneumococcal Vaccination: Yes Review Of Systems Except As Marked, All Systems Reviewed And Found Negative. Constitutional: Negative for: Fever, Chills Cardiovascular: Negative for: Chest Pain, Palpitations Gastrointestinal: Positive for: Nausea, Vomiting. Negative for: Abdominal Pain Skin: Negative for: Rash Neurological: Positive for: Headache. Negative for: Weakness, Numbness, Dizziness Physical Exam - Physical Exam Appears: Non-toxic, No Acute Distress Skin: Normal Color, Warm, Dry Head: Atraumatic, Normacephalic Oral Mucosa: Dry Chest: Symmetrical Cardiovascular: Rhythm Regular, No Murmur Respiratory: Normal Breath Sounds, No Rales, No Rhonchi, No Wheezing Gastrointestinal/Abdominal: Soft, No Tenderness, No Guarding, No Rebound Back: Normal Inspection Extremity: Normal ROM, Capillary Refill (< 2 sec.) Neurological/Psych: Oriented x3, Normal Speech, Normal Cognition ED Course And Treatment - Laboratory Results Result Diagrams: 02/14/17 09:15 02/14/17 09:15 Lab Interpretation: Normal (ua neg, flu swab neg, + mild elev glu) ECG: Interpreted By Me ECG Rhythm: Sinus Rhythm ECG Interpretation: Normal Rate From EC (bpm) O2 Sat by Pulse Oximetry: 98 (RA) Pulse Ox Interpretation: Normal - Radiology CXR: Read By Radiologist CXR Interpretation: Yes: No Acute Disease Progress Note: IVF, zofran, pepcid Medical Decision Making Medical Decision Making: mild viral syndrome, flu neg glu mild elev prescribe FS monitor for home use. 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 Apuntalos en un libro y aurea lo a edgard visititas en la [facility] Prescriptions: Blood Sugar Diagnostic [Glucose Test Strip] 1 each MC BID #60 strip Glucose Meter [Blood Glucose Monitoring System] 1 dev XX PRN PRN #1 dev PRN Reason: diabetes Instructions: Acute Nausea and Vomiting (ED) Forms: [employer] (Bulgarian) Print Language: CITIZEN OF [place] - Clinical Impression Clinical Impression: Viral syndrome, Diabetes - Scribe Statement The provider has reviewed the documentation as recorded by the Scribe SM All medical record entries made by the Scribe were at my direction and personally dictated by me. I have reviewed the chart and agree that the record accurately reflects my personal performance of the history, physical exam, medical decision making, and the department course for this patient. I have also personally directed, reviewed, and agree with the discharge instructions and disposition.
--- NOTE | 2017-02-14 10:07 | RAD ---
PROCEDURE: CHEST RADIOGRAPH, 1 VIEW HISTORY: Shortness of breath COMPARISON: 09/26/2016. FINDINGS: LUNGS: The lungs are well inflated and clear. PLEURA: No pneumothorax or pleural fluid seen. CARDIOVASCULAR: Normal. OSSEOUS STRUCTURES: No significant abnormalities. VISUALIZED UPPER ABDOMEN: Normal. OTHER FINDINGS: None. IMPRESSION: No active pulmonary disease.
[2017-02-14 10:08] VITALS: BP 123/98; PULSE 72; RESP 16; TEMP 98.2
--- NOTE | 2017-02-18 11:30 | CARD ---
APPROVED REPORT EKG Measurement Heart [id number] <Conclusion> Normal sinus rhythm Cannot rule out Anterior infarct, age undetermined Abnormal ECG
== END 2017-02-14 10:28 | disposition home or self-care (01) ==
LOC: C.ER 08:09
DX: B34.9 Viral infection, unspecified (principal); E11.9 Type 2 diabetes mellitus without complications; I10 Essential (primary) hypertension
CPT/HCPCS: 71010; 80053; 81001; 85025; 87804; 96361; 96374; 99285; J7040

== ENCOUNTER 2017-03-03 04:08 | Inpatient (IN) | payer OTHER ==
[2017-03-03 04:08] VITALS: BMI 24.5
[2017-03-03] MEDS ORDERED: Sodium Chloride 0.9% 500 ML IV STA (04:54)
[2017-03-03] MEDS ORDERED: Sodium Chloride 0.9% 1,000 ML ONE (05:10)
[2017-03-03 05:29] LABS: BASO # 0.1 K/uL (0.0-0.2); BASO % 0.8 % (0.0-2.0); EOS # 0.1 K/uL (0.0-0.7); HEMATOCRIT 32.6 % (34.0-47.0); LYMPH # 1.4 K/uL (1.0-4.3); LYMPH % 14.9 % (20.0-40.0); MEAN CELL VOLUME 87.3 fL (81.0-99.0); MEAN CORPUSCULAR HEMOGLOBIN 29.7 pg (27.0-31.0); MEAN PLATELET VOLUME 7.7 fL (7.2-11.7); MONO # 0.3 K/uL (0.0-0.8); MONO % 3.6 % (0.0-10.0); RED CELL DISTRIBUTION WIDTH 13.6 % (11.5-14.5); WHITE BLOOD COUNT 9.5 K/uL (4.8-10.8)
[2017-03-03 05:47] LABS: SODIUM 134 mmol/L (132-148)
[2017-03-03 05:49] LABS: ALKALINE PHOSPHATASE 171 U/L (38-126); ALT/SGPT 23 U/L (9-52); AST/SGOT 29 U/L (14-36); BILIRUBIN,TOTAL 0.4 mg/dL (0.2-1.3); BLOOD UREA NITROGEN 16 mg/dL (7-17); CALCIUM 8.5 mg/dl (8.6-10.4); CARBON DIOXIDE 26 mmol/L (22-30); CHLORIDE 98 mmol/L (98-107); GFR AFRICAN-AMERICAN > 60; GLUCOSE,RANDOM 217 mg/dL (65-105); POTASSIUM 4.6 mmol/L (3.6-5.2); TOTAL PROTEIN 8.7 g/dL (6.3-8.3)
--- NOTE | 2017-03-03 05:50 | CT ---
EXAM: CT Head Without Intravenous Contrast CLINICAL HISTORY: 66 years old, female; Pain; Headache; Headache not specified; Additional info: Elevated BP, MALDONADO, vomiting TECHNIQUE: Axial computed tomography images of the head/brain without intravenous contrast. All CT scans at this facility use one or more dose reduction techniques, viz.: automated exposure control; ma/kV adjustment per patient size (including targeted exams where dose is matched to indication; i.e. head); or iterative reconstruction technique. 170 images are submitted. COMPARISON: No relevant prior studies available. FINDINGS: Brain: Bilateral basal ganglia calcifications. Mild cerebral and cerebellar volume loss. Minimal hypodensity is seen in the periventricular cerebral white matter. No hemorrhage. Ventricles: Unremarkable. No ventriculomegaly. Bones/joints: Unremarkable. No acute fracture. Soft tissues: Unremarkable. Sinuses: Moderate right maxillary sinus disease. Mastoid air cells: Unremarkable. No mastoid effusion. Dental: Edentulous maxilla. The mandible dental mandaeism/partial prosthesis. IMPRESSION: No evidence of an acute intracranial hemorrhage, midline shift or mass effect is identified.
[2017-03-03 06:03] LABS: RBC URINE < 1 /hpf (0-3); URINE BILIRUBIN NEGATIVE (NEGATIVE); URINE BLOOD NEGATIVE (NEGATIVE); URINE COLOR Colorless (YELLOW); URINE GLUCOSE (UA) NORMAL (Normal); URINE KETONE NEGATIVE (NEGATIVE); URINE LEUKOCYTE ESTERASE NEG Leu/uL (Negative); URINE PROTEIN NEGATIVE (NEGATIVE); URINE UROBILINOGEN NORMAL mg/dL (0.2-1.0); WBC URINE < 1 /hpf (0-5)
--- NOTE | 2017-03-03 06:20 | C.PDOC ---
History Of Present Illness Karen Muro is a 66 year old female, with a past medical history HTN, and diabetes, who presents to the emergency department complaining of headache, dizziness, vomiting and elevated blood pressure at home onset since midnight. Patient reports a blood pressure up to 230 at midnight. She reports x3 episodes of vomiting. She has been taking medications but states she recently finished them. She denies any other medical complaints. PMD: None provided. 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) Associated Symptoms: Dizziness, Headache, Other (vomiting x3) Past Medical History Reviewed: Historical Data, Nursing Documentation, Vital Signs Vital Signs: Last Vital Signs Temp 98.1 F 03/03/17 04:37 Pulse 79 03/03/17 04:37 Resp 16 03/03/17 04:37 BP 165/58 H 03/03/17 04:37 Pulse Ox 100 03/03/17 04:37 - Medical History PMH: Diabetes, HTN, Hypothyroidism Denies: Chronic Kidney Disease Surgical History: Appendectomy Family History: States: [place], CAD - Social History Hx Tobacco Use: No Hx Alcohol Use: No Hx Substance Use: No - Immunization History Hx Tetanus Toxoid Vaccination: No Hx Influenza Vaccination: Yes Hx Pneumococcal Vaccination: Yes Review Of Systems Except As Marked, All Systems Reviewed And Found Negative. Gastrointestinal: Positive for: Vomiting (x3) Neurological: Positive for: Headache, Dizziness ED Course And Treatment - Laboratory Results Result Diagrams: 03/03/17 05:26 03/03/17 05:26 O2 Sat by Pulse Oximetry: 100 Disposition - Disposition
--- NOTE | 2017-03-03 06:27 | C.PDOC ---
History Of Present Illness Karen Muro is a 66 year old female, with a past medical history HTN, and diabetes, who presents to the emergency department complaining of headache, dizziness, vomiting and elevated blood pressure at home onset since midnight. Patient reports a blood pressure up to 230 at midnight. She reports x3 episodes of vomiting. She has been taking medications but states she recently finished them. She denies any other medical complaints. PMD: None provided. 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) Associated Symptoms: Dizziness, Headache Past Medical History Reviewed: Historical Data, Nursing Documentation, Vital Signs Vital Signs: Last Vital Signs Temp 98 F 03/03/17 06:59 Pulse 66 03/03/17 06:59 Resp 16 03/03/17 06:59 BP 142/69 03/03/17 06:59 Pulse Ox 98 03/03/17 06:59 - Medical History PMH: Diabetes, HTN, Hypothyroidism Denies: Chronic Kidney Disease Surgical History: Appendectomy Family History: States: [place], CAD - Social History Hx Tobacco Use: No Hx Alcohol Use: No Hx Substance Use: No - Immunization History Hx Tetanus Toxoid Vaccination: No Hx Influenza Vaccination: Yes Hx Pneumococcal Vaccination: Yes Review Of Systems Except As Marked, All Systems Reviewed And Found Negative. Gastrointestinal: Positive for: Vomiting (x3) Neurological: Positive for: Headache, Dizziness Physical Exam - Physical Exam Skin: Normal Color, Warm, Dry Head: Atraumatic, Normacephalic Cardiovascular: Rhythm Regular Respiratory: Normal Breath Sounds, No Accessory Muscle Use Gastrointestinal/Abdominal: Soft, No Tenderness Back: Normal Inspection, No CVA Tenderness Extremity: Normal ROM, No Deformity, No Swelling Neurological/Psych: Oriented x3 (awake and alert) ED Course And Treatment - Laboratory Results Result Diagrams: 03/03/17 05:26 03/03/17 05:26 ECG Rhythm: Sinus Rhythm ECG Interpretation: Normal, No Acute Changes Rate From EC O2 Sat by Pulse Oximetry: 100 (RA) Pulse Ox Interpretation: Normal Progress Note: Case was d/w who accepted patient to tele for observation Medical Decision Making Medical Decision Making: Initial Impression: HTN Initial Plan: --Head w/o contrast [CT] --CK-MB --Comp Metabolic Panel --Creatine Phosphokinase --Troponin I --CBC w/ differential --PTT --PT --Chest one view [RAD] --Sodium Chloride 500 ml IV 1,000 mls/hr --Urinalysis --reevaluation 05:[address] FINDINGS: Brain: Bilateral basal ganglia calcifications. Mild cerebral and cerebellar volume loss. Minimal hypodensity is seen in the periventricular cerebral white matter. No hemorrhage. Ventricles: Unremarkable. No ventriculomegaly. Bones/joints: Unremarkable. No acute fracture. Soft tissues: Unremarkable. Sinuses: Moderate right maxillary sinus disease. Mastoid air cells: Unremarkable. No mastoid effusion. Dental: Edentulous maxilla. The mandible dental confucianism/partial prosthesis. IMPRESSION: No evidence of an acute intracranial hemorrhage, midline shift or mass effect is identified. 06:40 --Patient tried to get up but feels dizzy. Disposition - Disposition Disposition: HOSPITALIZED Disposition Time: 07:14 Condition: FAIR Forms: [employer] Connect (Indonesian) - Clinical Impression Clinical Impression: Dizziness - Scribe Statement Ed Gregorio All medical record entries made by the Scribe were at my direction and personally dictated by me. I have reviewed the chart and agree that the record accurately reflects my personal performance of the history, physical exam, medical decision making, and the department course for this patient. I have also personally directed, reviewed, and agree with the discharge instructions and disposition. Decision To Admit - Pt Status Changed To: Hospital Disposition Of: Observation - . Bed Request Type: Telemetry Admitting Physician: Cornelio Sullivan Patient Diagnosis: Dizziness
--- NOTE | 2017-03-03 09:36 | CP.PCM.HP ---
<Buster Marquez - Last Filed: 03/03/17 09:17> History of Present Illness - History of Present Illness History of Present Illness: PGY1 History and Physical for Dr. Sullivan CC: Dizziness with nausea and vomiting. Funeral Home Assistant: Hunter Linton [id number] Patient is a 66 year old female from [facility] with a past medical history of HTN , diabetes and positive QFT gold test presenting dizziness, nausea and vomiting since midnight. Patient states she was at a friends house when she started to experience dizziness. The dizziness progressed over the next hour to where the patient became nauseous and vomited 3 times. The patient reports checking her blood pressure while at her friend's house, which reveled a maximum SBP ~230. The patient reports resolved chills and chest pain. The patient states the chest pain was short lasting, pressure that resolved quickly and never returned. Patient denies fevers, headaches, diarrhea, constipation, vision changes, headaches, numbness, tingling, muscle weakness and slurred speech. PMH: HTN, diabetes and positive QFT gold test PSH: Appendectomy Meds: Amlodipine 10mg PO daily; Lisinopril 20mg PO daily; Isoniazid 300mg PO daily Allergies: NKDA Family: Mom of [place] at 92yo; Dad unknown. Soc: Denies tobacco, ETOH, or drug use; lives with friend in [facility]; does not work. Present on Admission - Present on Admission Any Indicators Present on Admission: No Review of Systems - Review of Systems All systems: reviewed and no additional remarkable complaints except (as per HPI ) Past Patient History - Infectious Disease Hx of Infectious Diseases: None - Past Social History Smoking Status: Never Smoked - CARDIAC Hx Hypertension: Yes - PULMONARY Hx Respiratory Disorders: No - NEUROLOGICAL Hx Neurological Disorder: No - HEENT Hx HEENT Problems: No - RENAL Hx Chronic Kidney Disease: No - ENDOCRINE/METABOLIC Hx Hypothyroidism: Yes - HEMATOLOGICAL/ONCOLOGICAL Hx Blood Transfusions: No - INTEGUMENTARY Other/Comment: right big toe dry wound - MUSCULOSKELETAL/RHEUMATOLOGICAL Hx Falls: No - GASTROINTESTINAL Hx Gastrointestinal Disorders: No - GENITOURINARY/GYNECOLOGICAL Hx Genitourinary Disorders: No - PSYCHIATRIC Hx Substance Use: No - SURGICAL HISTORY Hx Appendectomy: Yes - ANESTHESIA Hx Anesthesia: Yes Hx Anesthesia Reactions: No Meds Allergies/Adverse Reactions: Allergies Allergy/AdvReac Type Severity Reaction Status Date / Time No Known Allergies Allergy Verified 02/14/17 08:16 Physical Exam - Constitutional Appears: Non-toxic, No Acute Distress - Head Exam Head Exam: ATRAUMATIC, NORMOCEPHALIC - Eye Exam Eye Exam: EOMI, Normal appearance. absent: Scleral icterus Pupil Exam: NORMAL ACCOMODATION - ENT Exam ENT Exam: Mucous Membranes Moist - Respiratory Exam Respiratory Exam: Clear to Auscultation Bilateral, NORMAL BREATHING PATTERN. absent: Accessory Muscle Use, Rales, Rhonchi, Wheezes, Respiratory Distress - Cardiovascular Exam Cardiovascular Exam: REGULAR RHYTHM, +S1 - GI/Abdominal Exam GI & Abdominal Exam: Soft. absent: Distended, Firm, Guarding, Hernia, Normal Bowel Sounds, Rebound, Rigid, Tenderness - Extremities Exam Extremities exam: Positive for: normal inspection, pedal pulses present. Negative for: calf tenderness, tenderness - Neurological Exam Neurological exam: Alert, CN II-XII Intact, Oriented x3 Additional comments: Neurosensory intact b/l. No slurred speech. Normal heal to pyane. Negative Babinski. When attempting to obtain orthostatic vital signs, patient stated she got extremely dizzy and was unable to stand fur the examination. She became dizzy before she lifted her head off of the bed, with feet on the floor. - Psychiatric Exam Psychiatric exam: Normal Mood - Skin Skin Exam: Dry, Warm Results - Vital Signs Recent Vital Signs: Last Vital Signs Temp 97.6 F 03/03/17 08:50 Pulse 71 03/03/17 08:50 Resp 18 03/03/17 08:50 BP 129/64 03/03/17 08:50 Pulse Ox 97 03/03/17 09:03 - Labs Result Diagrams: 03/03/17 05:26 03/03/17 05:26 Labs: Laboratory Results - last 24 hr 03/03/17 03/03/17 03/03/17 04:33 05:26 05:26 WBC 9.5 RBC 3.73 L Hgb 11.1 Hct 32.6 L MCV 87.3 MCH 29.7 MCHC 34.0 RDW 13.6 Plt Count 330 MPV 7.7 Neut % (Auto) 79.7 H Lymph % (Auto) 14.9 L [place] % (Auto) 3.6 Eos % (Auto) 1.0 Baso % (Auto) 0.8 Neut # 7.6 H Lymph # 1.4 [place] # 0.3 Eos # 0.1 Baso # 0.1 PT 10.7 INR 1.0 APTT 35 H Sodium Potassium Chloride Carbon Dioxide Anion Gap BUN Creatinine Est GFR ( Amer) Est GFR (Non-Af Amer) POC Glucose (mg/dL) 194 H Random Glucose Calcium Total Bilirubin AST ALT Alkaline Phosphatase Total Creatine Kinase CK-MB (Mass) Troponin I Total Protein Albumin Globulin Albumin/Globulin Ratio Urine Color Urine Clarity Urine pH Ur Specific [place] Urine Protein Urine Glucose (UA) Urine Ketones Urine Blood Urine Nitrate Urine Bilirubin Urine Urobilinogen Ur Leukocyte Esterase Urine WBC (Auto) Urine RBC (Auto) Ur Squamous Epith Cells 03/03/17 03/03/17 05:26 05:49 WBC RBC Hgb Hct MCV MCH MCHC RDW Plt Count MPV Neut % (Auto) Lymph % (Auto) [place] % (Auto) Eos % (Auto) Baso % (Auto) Neut # Lymph # [place] # Eos # Baso # PT INR APTT Sodium 134 Potassium 4.6 Chloride 98 Carbon Dioxide 26 Anion Gap 10 BUN 16 Creatinine 0.9 Est GFR ( Amer) > 60 Est GFR (Non-Af Amer) > 60 POC Glucose (mg/dL) Random Glucose 217 H Calcium 8.5 L Total Bilirubin 0.4 AST 29 ALT 23 Alkaline Phosphatase 171 H D Total Creatine Kinase 63 CK-MB (Mass) 0.58 Troponin I < 0.0120 Total Protein 8.7 H Albumin 4.3 Globulin 4.4 H Albumin/Globulin Ratio 1.0 Urine Color Colorless Urine Clarity Clear Urine pH 8.0 Ur Specific [place] 1.005 Urine Protein Negative Urine Glucose (UA) Normal Urine Ketones Negative Urine Blood Negative Urine Nitrate Negative Urine Bilirubin Negative Urine Urobilinogen Normal Ur Leukocyte Esterase Neg Urine WBC (Auto) < 1 Urine RBC (Auto) < 1 Ur Squamous Epith Cells < 1 Assessment & Plan - Assessment and Plan (Free Text) Plan: Dizziness BPPV? Head CT - No evidence of an acute intracranial hemorrhage, midline shift or mass effect is identified. Meclazine 25mg PO q8h x 24hours then q8h PRN Chest pain Telemetry KRISHNA negative x1 f/u KRISHNA x2 ECHO 09/26/16 - normal LV systolic function, no valvular stenosis or regurgitations noted. 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 Nate Marquez PGY1 <Cornelio Sullivan P - Last Filed: 03/03/17 19:43> Results - Vital Signs Recent Vital Signs: Last Vital Signs Temp 98.3 F 03/03/17 15:15 Pulse 56 L 03/03/17 19:21 Resp 20 03/03/17 15:15 BP 107/58 L 03/03/17 19:21 Pulse Ox 95 03/03/17 15:15 - Labs Result Diagrams: 03/03/17 05:26 03/03/17 05:26 Labs: Laboratory Results - last 24 hr 03/03/17 03/03/17 03/03/17 04:33 05:26 05:26 WBC 9.5 RBC 3.73 L Hgb 11.1 Hct 32.6 L MCV 87.3 MCH 29.7 MCHC 34.0 RDW 13.6 Plt Count 330 MPV 7.7 Neut % (Auto) 79.7 H Lymph % (Auto) 14.9 L [place] % (Auto) 3.6 Eos % (Auto) 1.0 Baso % (Auto) 0.8 Neut # 7.6 H Lymph # 1.4 [place] # 0.3 Eos # 0.1 Baso # 0.1 PT 10.7 INR 1.0 APTT 35 H Sodium Potassium Chloride Carbon Dioxide Anion Gap BUN Creatinine Est GFR ( Amer) Est GFR (Non-Af Amer) POC Glucose (mg/dL) 194 H Random Glucose Calcium Total Bilirubin AST ALT Alkaline Phosphatase Total Creatine Kinase CK-MB (Mass) Troponin I Total Protein Albumin Globulin Albumin/Globulin Ratio Urine Color Urine Clarity Urine pH Ur Specific [place] Urine Protein Urine Glucose (UA) Urine Ketones Urine Blood Urine Nitrate Urine Bilirubin Urine Urobilinogen Ur Leukocyte Esterase Urine WBC (Auto) Urine RBC (Auto) Ur Squamous Epith Cells 03/03/17 03/03/17 03/03/17 05:26 05:49 10:54 WBC RBC Hgb Hct MCV MCH MCHC RDW Plt Count MPV Neut % (Auto) Lymph % (Auto) [place] % (Auto) Eos % (Auto) Baso % (Auto) Neut # Lymph # [place] # Eos # Baso # PT INR APTT Sodium 134 Potassium 4.6 Chloride 98 Carbon Dioxide 26 Anion Gap 10 BUN 16 Creatinine 0.9 Est GFR ( Amer) > 60 Est GFR (Non-Af Amer) > 60 POC Glucose (mg/dL) 142 H Random Glucose 217 H Calcium 8.5 L Total Bilirubin 0.4 AST 29 ALT 23 Alkaline Phosphatase 171 H D Total Creatine Kinase 63 CK-MB (Mass) 0.58 Troponin I < 0.0120 Total Protein 8.7 H Albumin 4.3 Globulin 4.4 H Albumin/Globulin Ratio 1.0 Urine Color Colorless Urine Clarity Clear Urine pH 8.0 Ur Specific [place] 1.005 Urine Protein Negative Urine Glucose (UA) Normal Urine Ketones Negative Urine Blood Negative Urine Nitrate Negative Urine Bilirubin Negative Urine Urobilinogen Normal Ur Leukocyte Esterase Neg Urine WBC (Auto) < 1 Urine RBC (Auto) < 1 Ur Squamous Epith Cells < 1 03/03/17 16:47 WBC RBC Hgb Hct MCV MCH MCHC RDW Plt Count MPV Neut % (Auto) Lymph % (Auto) [place] % (Auto) Eos % (Auto) Baso % (Auto) Neut # Lymph # [place] # Eos # Baso # PT INR APTT Sodium Potassium Chloride Carbon Dioxide Anion Gap BUN Creatinine Est GFR ( Amer) Est GFR (Non-Af Amer) POC Glucose (mg/dL) 193 H Random Glucose Calcium Total Bilirubin AST ALT Alkaline Phosphatase Total Creatine Kinase CK-MB (Mass) Troponin I Total Protein Albumin Globulin Albumin/Globulin Ratio Urine Color Urine Clarity Urine pH Ur Specific [place] Urine Protein Urine Glucose (UA) Urine Ketones Urine Blood Urine Nitrate Urine Bilirubin Urine Urobilinogen Ur Leukocyte Esterase Urine WBC (Auto) Urine RBC (Auto) Ur Squamous Epith Cells Attending/Attestation - Attestation I have personally seen and examined this patient.: Yes I have fully participated in the care of the patient.: Yes I have reviewed all pertinent clinical information: Yes Notes (Text): Symptoms of vertigo most likely clinical diagnosis of BPVV, dd of dm mononeuropathy, b6 related neuropathy, sinus as right maxillary sinusitis H/o DM, htn, bp flucctuations due to above Plan Supportive symptomatic care with meclizine, prn zofran, prn ativan Add pyridoxine to he meds Continue home meds Hgba1c See orders for detail.
--- NOTE | 2017-03-03 09:52 | RAD ---
PROCEDURE: CHEST RADIOGRAPH, 1 VIEW HISTORY: elevated BP, vomiting COMPARISON: 02/14/2017. FINDINGS: LUNGS: The lungs are clear. PLEURA: No pneumothorax or pleural fluid seen. CARDIOVASCULAR: Normal. OSSEOUS STRUCTURES: No significant abnormalities. VISUALIZED UPPER ABDOMEN: Normal. OTHER FINDINGS: None. IMPRESSION: No active pulmonary disease.
[2017-03-03] MEDS: Enoxaparin 40 mg Syringe SC SCH (10:36)
[2017-03-03] MEDS: (Novolin R) Insulin Human Regular 100 units/ml vial SC SCH ×3 (11:30→21:24)
[2017-03-04 07:32] LABS: BASO # 0.1 K/uL (0.0-0.2); BASO % 0.7 % (0.0-2.0); EOS # 0.2 K/uL (0.0-0.7); EOS % 2.2 % (0.0-4.0); HEMATOCRIT 32.8 % (34.0-47.0); LYMPH # 3.3 K/uL (1.0-4.3); LYMPH % 40.6 % (20.0-40.0); MEAN CELL VOLUME 87.1 fL (81.0-99.0); MEAN CORPUSCULAR HEMOGLOBIN 29.5 pg (27.0-31.0); MEAN CORPUSCULAR HGB CONC 33.9 g/dL (33.0-37.0); MEAN PLATELET VOLUME 7.8 fL (7.2-11.7); MONO # 0.4 K/uL (0.0-0.8); MONO % 4.9 % (0.0-10.0); RED CELL DISTRIBUTION WIDTH 13.4 % (11.5-14.5)
[2017-03-04] MEDS: (Novolin R) Insulin Human Regular 100 units/ml vial SC SCH ×4 (07:40→21:22)
[2017-03-04 08:35] LABS: ALKALINE PHOSPHATASE 134 U/L (38-126); ALT/SGPT 22 U/L (9-52); AST/SGOT 23 U/L (14-36); BILIRUBIN,TOTAL 0.3 mg/dL (0.2-1.3); BLOOD UREA NITROGEN 20 mg/dL (7-17); CALCIUM 8.6 mg/dl (8.6-10.4); CARBON DIOXIDE 27 mmol/L (22-30); CHLORIDE 100 mmol/L (98-107); GFR AFRICAN-AMERICAN > 60; GLUCOSE,RANDOM 174 mg/dL (65-105); MAGNESIUM 1.9 mg/dL (1.6-2.3); POTASSIUM 4.8 mmol/L (3.6-5.2); SODIUM 136 mmol/L (132-148); TOTAL PROTEIN 8.2 g/dL (6.3-8.3)
[2017-03-04] MEDS: Enoxaparin 40 mg Syringe SC SCH (09:53)
--- NOTE | 2017-03-04 13:19 | CP.PCM.PN ---
<Buster Marquez - Last Filed: 03/04/17 13:14> Subjective - Date & Time of Evaluation Date of Evaluation: 03/04/17 Time of Evaluation: 13:14 - Subjective Subjective: PGY1 Medicine Note for Dr. Gupta Patient seen and examined at bedside this morning. Patient reports she is feeling better when she is laying down but still becomes extremely dizzy upon sitting up. She reports she needs significant help to walk to the bathroom but she has been able to make it. Patient states her nausea has improved but is still present. She has not vomited since yesterday. Patient has no other complaints at this time. Objective - Vital Signs/Intake and Output Vital Signs (last 24 hours): Temp Pulse Resp BP Pulse Ox 97.5 F L 76 18 151/68 H 97 03/04/17 07:48 03/04/17 08:00 03/04/17 07:48 03/04/17 07:48 03/04/17 04:08 Intake and Output: 03/04/17 03/04/17 06:59 18:59 Intake Total 220 Balance 220 - Medications Medications: Current Medications Acetaminophen (Tylenol 325mg Tab) 650 mg PO STAT STA Stop: 03/04/17 13:13 Enoxaparin Sodium (Lovenox) 40 mg SC DAILY [facility] Last Admin: 03/04/17 09:53 Dose: 40 mg Famotidine (Pepcid) 20 mg PO DAILY [facility] Last Admin: 03/04/17 09:53 Dose: 20 mg Insulin Human Regular (Novolin R) 0 unit SC ACHS [facility] PRN Reason: Protocol Last Admin: 03/04/17 12:48 Dose: 2 unit Isoniazid (Niazid) 300 mg PO DAILY [facility] Last Admin: 03/04/17 09:53 Dose: 300 mg Lisinopril (Zestril) 10 mg PO DAILY [facility] Last Admin: 03/04/17 09:53 Dose: 10 mg Lorazepam (Ativan) 0.25 mg IVP Q6H PRN PRN Reason: Anxiety Meclizine HCl (Antivert) 25 mg PO Q8H [facility] Ondansetron HCl (Zofran Inj) 4 mg IVP Q6 PRN PRN Reason: Nausea/Vomiting Pyridoxine HCl (Vitamin B6 50 Mg Tab) 50 mg PO DAILY [facility] Last Admin: 03/04/17 09:53 Dose: 50 mg - Labs Labs: 03/04/17 07:17 03/04/17 07:17 PT 10.7 SECONDS (9.7-12.2) 03/03/17 05:26 INR 1.0 03/03/17 05:26 APTT 35 SECONDS (21-34) H 03/03/17 05:26 - Constitutional Appears: Non-toxic, No Acute Distress - Head Exam Head Exam: ATRAUMATIC, NORMOCEPHALIC - Eye Exam Eye Exam: EOMI, Normal appearance Pupil Exam: NORMAL ACCOMODATION - ENT Exam ENT Exam: Mucous Membranes Moist - Neck Exam Neck Exam: Full ROM - Respiratory Exam Respiratory Exam: Clear to Ausculation Bilateral, NORMAL BREATHING PATTERN. absent: Accessory Muscle Use, Rales, Rhonchi, Wheezes, Respiratory Distress - Cardiovascular Exam Cardiovascular Exam: REGULAR RHYTHM, +S1 - GI/Abdominal Exam GI & Abdominal Exam: Soft, Normal Bowel Sounds. absent: Distended, Firm, Guarding, Rigid, Tenderness - Extremities Exam Extremities Exam: absent: Calf Tenderness, Pedal Edema - Neurological Exam Neurological Exam: Alert, Awake, CN II-XII Intact, Oriented x3. absent: Motor Sensory Deficit Additional comments: patient becomes extremely dizzy upon sitting upright. She attempts to lay back drown instantly. No other neuro deficits at this time. - Psychiatric Exam Psychiatric exam: Normal Affect, Normal Mood - Skin Skin Exam: Dry, Warm Assessment and Plan - Assessment and Plan (Free Text) Plan: Dizziness - no change most likely BPPV, ddx dm mononeuropathy, b6 related neuropathy, sinus as right maxillary sinusitis Head CT - No evidence of an acute intracranial hemorrhage, midline shift or mass effect is identified. Orthostatics 03/03: Lying 130/64, Sitting 130/67, Standing 118/70 Meclazine 25mg PO q8h f/u Brain MRI w/o Chest pain Telemetry KRISHNA negative x1 ECHO 09/26/16 - normal LV systolic function, no valvular stenosis or regurgitations noted. 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 Candy Marquez PGY1 <Maurisio Gupta H - Last Filed: 03/04/17 15:34> Objective - Vital Signs/Intake and Output Vital Signs (last 24 hours): Temp Pulse Resp BP Pulse Ox 97.5 F L 76 18 151/68 H 97 03/04/17 07:48 03/04/17 08:00 03/04/17 07:48 03/04/17 07:48 03/04/17 04:08 Intake and Output: 03/04/17 03/04/17 06:59 18:59 Intake Total 220 400 Output Total 1 Balance 220 399 - Medications Medications: Current Medications Enoxaparin Sodium (Lovenox) 40 mg SC DAILY [facility] Last Admin: 03/04/17 09:53 Dose: 40 mg Famotidine (Pepcid) 20 mg PO DAILY [facility] Last Admin: 03/04/17 09:53 Dose: 20 mg Insulin Human Regular (Novolin R) 0 unit SC [facility] PRN Reason: Protocol Last Admin: 03/04/17 12:48 Dose: 2 unit Isoniazid (Niazid) 300 mg PO DAILY [facility] Last Admin: 03/04/17 09:53 Dose: 300 mg Lisinopril (Zestril) 10 mg PO DAILY [facility] Last Admin: 03/04/17 09:53 Dose: 10 mg Lorazepam (Ativan) 0.25 mg IVP Q6H PRN PRN Reason: Anxiety Meclizine HCl (Antivert) 25 mg PO Q8H [facility] Last Admin: 03/04/17 13:19 Dose: 25 mg Ondansetron HCl (Zofran Inj) 4 mg IVP Q6 PRN PRN Reason: Nausea/Vomiting Pyridoxine HCl (Vitamin B6 50 Mg Tab) 50 mg PO DAILY [facility] Last Admin: 03/04/17 09:53 Dose: 50 mg - Labs Labs: 03/04/17 07:17 03/04/17 07:17 PT 10.7 SECONDS (9.7-12.2) 03/03/17 05:26 INR 1.0 03/03/17 05:26 APTT 35 SECONDS (21-34) H 03/03/17 05:26 Attending/Attestation - Attestation I have personally seen and examined this patient.: Yes I have fully participated in the care of the patient.: Yes I have reviewed all pertinent clinical information, including history, physical exam and plan: Yes Notes (Text): 03/04/17 15:34 Medical attending: Patient was seen and examined by me, reviewed the above note by medical office technology instructor and agree. The patient had family members in the room. The patient was okay with this as we discussed. This is a 66-year-old female who came into the hospital with the chief complaint of dizziness, and sensation of the room spinning. When she first came in her systolic blood pressure was very elevated the notes say that it was 230 systolic. Since then being on the medication her systolic blood pressure is much better now. She says that the headache and dizziness is still there however not as severe as before. While at rest she says she feels quite comfortable however moving around causes her to feel very dizzy. She was started on meclizine. And there was some thought that possibly she could have benign positional vertigo. This being said because of her very significant elevated blood pressure regular check an MRI of the brain just assess for possibility of she could've had a stroke of some sort. On my physical exam in and she did quite well with no deficits. - However she gets quite dizzy when attempting to sit up and stand. Orthostatic BPs were checked and she did have a small drop in numbers. Thank you very much, Maurisio Gupta
--- NOTE | 2017-03-04 14:40 | MRI ---
PROCEDURE: MRI BRAIN WITHOUT CONTRAST HISTORY: dizziness r/o stroke COMPARISON: UNENHANCED HEAD CT 03/03/2017. TECHNIQUE: Multiplanar, multisequence MR images of the brain were obtained without intravenous contrast enhancement. FINDINGS: HEMORRHAGE: None DWI: No evidence of an acute or early subacute infarction. BRAIN PARENCHYMA: Good corticomedullary differentiation is seen. Limited but diffuse expansion of the ventriculosulcal and cisternal spaces is appreciated compatible with diffuse cerebral atrophy. Also, minimal periventricular and subcortical white matter signal abnormality is appreciated primarily in the FLAIR sequence compatible with chronic microangiopathy. No suspicious extra-axial fluid collection is identified and the midline brain anatomy appears grossly nonfocal as imaged. VENTRICLES: Unremarkable. No hydrocephalus. CRANIUM: Unremarkable. ORBITS: Grossly unremarkable. PARANASAL SINUSES/MASTOIDS: Clear VASCULAR SYSTEM: Skull base flow voids intact. OTHER FINDINGS: None. IMPRESSION: Very limited age-related neuro degenerative changes are encountered in this patient with the remainder the examination unremarkable. No acute intracranial hemorrhage is identified or acute or subacute brain infarction.
[2017-03-05 07:13] LABS: BASO % 0.7 % (0.0-2.0); EOS # 0.2 K/uL (0.0-0.7); EOS % 2.6 % (0.0-4.0); HEMATOCRIT 31.6 % (34.0-47.0); LYMPH # 2.5 K/uL (1.0-4.3); LYMPH % 37.6 % (20.0-40.0); MEAN CELL VOLUME 87.6 fL (81.0-99.0); MEAN CORPUSCULAR HEMOGLOBIN 30.4 pg (27.0-31.0); MEAN CORPUSCULAR HGB CONC 34.7 g/dL (33.0-37.0); MEAN PLATELET VOLUME 7.9 fL (7.2-11.7); MONO # 0.4 K/uL (0.0-0.8); RED CELL DISTRIBUTION WIDTH 13.2 % (11.5-14.5); WHITE BLOOD COUNT 6.7 K/uL (4.8-10.8)
[2017-03-05 08:12] LABS: ALB/GLOB RATIO 0.9 (1.0-2.1); ALKALINE PHOSPHATASE 119 U/L (38-126); ALT/SGPT 18 U/L (9-52); AST/SGOT 20 U/L (14-36); BILIRUBIN,TOTAL 0.3 mg/dL (0.2-1.3); BLOOD UREA NITROGEN 22 mg/dL (7-17); CALCIUM 8.3 mg/dl (8.6-10.4); CARBON DIOXIDE 25 mmol/L (22-30); CHLORIDE 99 mmol/L (98-107); GFR AFRICAN-AMERICAN > 60; GLUCOSE,RANDOM 173 mg/dL (65-105); MAGNESIUM 1.9 mg/dL (1.6-2.3); PHOSPHOROUS 4.4 mg/dL (2.5-4.5); POTASSIUM 4.7 mmol/L (3.6-5.2); SODIUM 133 mmol/L (132-148); TOTAL PROTEIN 8.1 g/dL (6.3-8.3)
[2017-03-05] MEDS: Enoxaparin 40 mg Syringe SC SCH (09:38)
[2017-03-05] MEDS: (Novolin R) Insulin Human Regular 100 units/ml vial SC SCH ×4 (09:38→21:20)
--- NOTE | 2017-03-05 11:46 | CP.PCM.PN ---
<Buster Marquez - Last Filed: 03/05/17 11:39> Subjective - Date & Time of Evaluation Date of Evaluation: 03/05/17 Time of Evaluation: 11:39 - Subjective Subjective: PGY1 Medicine Note for Dr. Gupta Patient seen and examined at bedside this morning. Patient states that her dizziness/nausea is slightly improved. She is no longer vomiting. She is complaining of a mild right sided headache. She states she has difficulty walking to the bathroom due to her dizziness and that she needs help with walking due to balancing issues. She denies any other symptoms at this time. Objective - Vital Signs/Intake and Output Vital Signs (last 24 hours): Temp Pulse Resp BP Pulse Ox 97.9 F 62 20 163/74 H 97 03/05/17 08:00 03/05/17 08:00 03/05/17 08:00 03/05/17 08:00 03/05/17 08:00 Intake and Output: 03/05/17 03/05/17 06:59 18:59 Intake Total 100 Balance 100 - Medications Medications: Current Medications Enoxaparin Sodium (Lovenox) 40 mg SC DAILY [facility] Last Admin: 03/05/17 09:38 Dose: 40 mg Famotidine (Pepcid) 20 mg PO DAILY [facility] Last Admin: 03/05/17 09:38 Dose: 20 mg Insulin Human Regular (Novolin R) 0 unit SC ACHS [facility] PRN Reason: Protocol Last Admin: 03/05/17 09:38 Dose: 1 unit Isoniazid (Niazid) 300 mg PO DAILY [facility] Last Admin: 03/05/17 09:38 Dose: 300 mg Lisinopril (Zestril) 10 mg PO DAILY [facility] Last Admin: 03/05/17 09:38 Dose: 10 mg Lorazepam (Ativan) 0.25 mg IVP Q6H PRN PRN Reason: Anxiety Meclizine HCl (Antivert) 25 mg PO Q8H [facility] Last Admin: 03/05/17 05:30 Dose: 25 mg Ondansetron HCl (Zofran Inj) 4 mg IVP Q6 PRN PRN Reason: Nausea/Vomiting Pyridoxine HCl (Vitamin B6 50 Mg Tab) 50 mg PO DAILY [facility] Last Admin: 03/05/17 09:38 Dose: 50 mg - Labs Labs: 03/05/17 07:02 03/05/17 07:02 PT 10.7 SECONDS (9.7-12.2) 03/03/17 05:26 INR 1.0 03/03/17 05:26 APTT 35 SECONDS (21-34) H 03/03/17 05:26 - Constitutional Appears: Non-toxic, No Acute Distress - Head Exam Head Exam: ATRAUMATIC, NORMOCEPHALIC - Eye Exam Eye Exam: EOMI, Normal appearance - ENT Exam ENT Exam: Mucous Membranes Moist - Respiratory Exam Respiratory Exam: Clear to Ausculation Bilateral, NORMAL BREATHING PATTERN. absent: Accessory Muscle Use, Rales, Rhonchi, Wheezes, Respiratory Distress - Cardiovascular Exam Cardiovascular Exam: REGULAR RHYTHM, +S1 - GI/Abdominal Exam GI & Abdominal Exam: Soft, Normal Bowel Sounds. absent: Distended, Firm, Guarding, Rigid, Tenderness - Extremities Exam Extremities Exam: Normal Inspection. absent: Calf Tenderness, Pedal Edema - Neurological Exam Neurological Exam: Alert, Awake, CN II-XII Intact, Oriented x3. absent: Motor Sensory Deficit Neuro motor strength exam: Left Upper Extremity: 5, Right Upper Extremity: 5, Left Lower Extremity: 5, Right Lower Extremity: 5 Additional comments: Refused to stand up due to dizziness - Psychiatric Exam Psychiatric exam: Normal Affect, Normal Mood - Skin Skin Exam: Dry, Warm Assessment and Plan - Assessment and Plan (Free Text) Plan: Dizziness - mild improvement most likely BPPV, ddx dm mononeuropathy, b6 related neuropathy, sinus as right maxillary sinusitis Head CT - No evidence of an acute intracranial hemorrhage, midline shift or mass effect is identified. Orthostatics 03/03: Lying 130/64, Sitting 130/67, Standing 118/70 Meclazine 25mg PO q8h Brain MRI w/o - Very limited age-related neuro degenerative changes are encountered in this patient with the remainder the examination unremarkable. No acute intracranial hemorrhage is identified or acute or subacute brain infarction. Chest pain Telemetry KRISHNA negative x1 ECHO 09/26/16 - normal LV systolic function, no valvular stenosis or regurgitations noted. 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 Candy Marquez PGY1 <Maurisio Gupta H - Last Filed: 03/05/17 14:16> Objective - Vital Signs/Intake and Output Vital Signs (last 24 hours): Temp Pulse Resp BP Pulse Ox 97.9 F 62 20 163/74 H 97 03/05/17 08:00 03/05/17 08:00 03/05/17 08:00 03/05/17 08:00 03/05/17 08:00 Intake and Output: 03/05/17 03/05/17 06:59 18:59 Intake Total 100 Balance 100 - Medications Medications: Current Medications Enoxaparin Sodium (Lovenox) 40 mg SC DAILY [facility] Last Admin: 03/05/17 09:38 Dose: 40 mg Famotidine (Pepcid) 20 mg PO DAILY [facility] Last Admin: 03/05/17 09:38 Dose: 20 mg Insulin Human Regular (Novolin R) 0 unit SC [facility] PRN Reason: Protocol Last Admin: 03/05/17 12:48 Dose: 3 unit Isoniazid (Niazid) 300 mg PO DAILY [facility] Last Admin: 03/05/17 09:38 Dose: 300 mg Lisinopril (Zestril) 10 mg PO DAILY [facility] Last Admin: 03/05/17 09:38 Dose: 10 mg Lorazepam (Ativan) 0.25 mg IVP Q6H PRN PRN Reason: Anxiety Meclizine HCl (Antivert) 25 mg PO Q8H [facility] Last Admin: 03/05/17 12:47 Dose: 25 mg Ondansetron HCl (Zofran Inj) 4 mg IVP Q6 PRN PRN Reason: Nausea/Vomiting Pyridoxine HCl (Vitamin B6 50 Mg Tab) 50 mg PO DAILY [facility] Last Admin: 03/05/17 09:38 Dose: 50 mg - Labs Labs: 03/05/17 07:02 03/05/17 07:02 PT 10.7 SECONDS (9.7-12.2) 03/03/17 05:26 INR 1.0 03/03/17 05:26 APTT 35 SECONDS (21-34) H 03/03/17 05:26 Attending/Attestation - Attestation I have personally seen and examined this patient.: Yes I have fully participated in the care of the patient.: Yes I have reviewed all pertinent clinical information, including history, physical exam and plan: Yes Notes (Text): 03/05/17 14:14 Medical attending: Patient was seen and examined by me, reviewed the above note by certified medical records coder agree with the above. So we came and saw the patient today she didn't have a family members present in the room. The patient's white blood cell count stable at this moment, her hemoglobin is also stable. She underwent an MRI yesterday since we are concerned that possibly she could' ve had a stroke however the MRI has been stable. The patient does not have any neurological deficits in her upper or lower extremities. When we saw her today she said that she felt okay however she still had some baseline dizziness however much improved she added Sodium continue with the by mouth meclizine, will consider discharging the patient tomorrow. thank you Maurisio Gupta
--- NOTE | 2017-03-05 21:44 | CARD ---
APPROVED REPORT EKG Measurement Heart [id number] <Conclusion> Normal sinus rhythm Cannot rule out Anterior infarct, age undetermined Abnormal ECG
[2017-03-06 07:55] LABS: BASO # 0.1 K/uL (0.0-0.2); BASO % 0.9 % (0.0-2.0); EOS # 0.2 K/uL (0.0-0.7); EOS % 2.3 % (0.0-4.0); LYMPH # 2.5 K/uL (1.0-4.3); LYMPH % 36.7 % (20.0-40.0); MEAN CELL VOLUME 86.9 fL (81.0-99.0); MEAN CORPUSCULAR HEMOGLOBIN 29.6 pg (27.0-31.0); MEAN CORPUSCULAR HGB CONC 34.1 g/dL (33.0-37.0); MONO # 0.5 K/uL (0.0-0.8); MONO % 6.5 % (0.0-10.0); RED CELL DISTRIBUTION WIDTH 13.1 % (11.5-14.5); WHITE BLOOD COUNT 6.9 K/uL (4.8-10.8)
[2017-03-06 08:55] LABS: ALB/GLOB RATIO 1.1 (1.0-2.1); ALKALINE PHOSPHATASE 119 U/L (38-126); ALT/SGPT 22 U/L (9-52); AST/SGOT 35 U/L (14-36); BILIRUBIN,TOTAL 0.4 mg/dL (0.2-1.3); BLOOD UREA NITROGEN 33 mg/dL (7-17); CALCIUM 8.3 mg/dl (8.6-10.4); CARBON DIOXIDE 26 mmol/L (22-30); CHLORIDE 97 mmol/L (98-107); GFR AFRICAN-AMERICAN > 60; GLUCOSE,RANDOM 192 mg/dL (65-105); MAGNESIUM 1.9 mg/dL (1.6-2.3); PHOSPHOROUS 4.7 mg/dL (2.5-4.5); POTASSIUM 5.3 mmol/L (3.6-5.2); SODIUM 131 mmol/L (132-148)
[2017-03-06] MEDS: Enoxaparin 40 mg Syringe SC SCH (09:34)
[2017-03-06] MEDS: (Novolin R) Insulin Human Regular 100 units/ml vial SC SCH ×3 (09:42→16:51)
[2017-03-06 14:24] VITALS: TEMP 97.9
[2017-03-06 15:28] VITALS: BP 111/65; RESP 20; O2SAT 97
--- NOTE | 2017-03-06 16:08 | CP.PCM.PN ---
Subjective - Date & Time of Evaluation Date of Evaluation: 03/06/17 Time of Evaluation: 16:06 - Subjective Subjective: Patient is to be discharged home despite PT recommendations per Dr. Gupta. Patient instructed to take her time and move slow. She is to take her medications as directed. Objective - Vital Signs/Intake and Output Vital Signs (last 24 hours): Temp Pulse Resp BP Pulse Ox 97.9 F 66 20 111/65 97 03/06/17 15:26 03/06/17 15:26 03/06/17 15:26 03/06/17 15:26 03/06/17 15:26 Intake and Output: 03/06/17 03/06/17 06:59 18:59 Intake Total 200 480 Balance 200 480 - Medications Medications: Current Medications Enoxaparin Sodium (Lovenox) 40 mg SC DAILY [facility] Last Admin: 03/06/17 09:34 Dose: 40 mg Famotidine (Pepcid) 20 mg PO DAILY [facility] Last Admin: 03/06/17 09:33 Dose: 20 mg Insulin Human Regular (Novolin R) 0 unit SC [facility] PRN Reason: Protocol Last Admin: 03/06/17 12:42 Dose: 2 unit Isoniazid (Niazid) 300 mg PO DAILY [facility] Last Admin: 03/06/17 09:33 Dose: 300 mg Lisinopril (Zestril) 10 mg PO DAILY [facility] Last Admin: 03/06/17 09:33 Dose: 10 mg Lorazepam (Ativan) 0.25 mg IVP Q6H PRN PRN Reason: Anxiety Meclizine HCl (Antivert) 25 mg PO Q8H [facility] Last Admin: 03/06/17 12:42 Dose: 25 mg Ondansetron HCl (Zofran Inj) 4 mg IVP Q6 PRN PRN Reason: Nausea/Vomiting Pyridoxine HCl (Vitamin B6 50 Mg Tab) 50 mg PO DAILY [facility] Last Admin: 03/06/17 09:34 Dose: 50 mg - Labs Labs: 03/06/17 07:30 03/06/17 07:30 PT 10.7 SECONDS (9.7-12.2) 03/03/17 05:26 INR 1.0 03/03/17 05:26 APTT 35 SECONDS (21-34) H 03/03/17 05:26
--- NOTE | 2017-03-06 16:30 | CP.PCM.DIS ---
<Buster Marquez - Last Filed: 03/06/17 16:08> Provider - Provider Date of Admission: 03/04/17 16:24 Attending physician: Maurisio Gupta DO Time Spent in preparation of Discharge (in minutes): 45 Hospital Course - Lab Results Lab Results: Most Recent Lab Values WBC 6.9 K/uL (4.8-10.8) 03/06/17 07:30 RBC 3.80 Mil/uL (3.80-5.20) 03/06/17 07:30 Hgb 11.2 g/dL (11.0-16.0) 03/06/17 07:30 Hct 33.0 % (34.0-47.0) L 03/06/17 07:30 MCV 86.9 fL (81.0-99.0) 03/06/17 07:30 MCH 29.6 pg (27.0-31.0) 03/06/17 07:30 MCHC 34.1 g/dL (33.0-37.0) 03/06/17 07:30 RDW 13.1 % (11.5-14.5) 03/06/17 07:30 Plt Count 349 K/uL (130-400) 03/06/17 07:30 MPV 8.0 fL (7.2-11.7) 03/06/17 07:30 Neut % (Auto) 53.6 % (50.0-75.0) 03/06/17 07:30 Lymph % (Auto) 36.7 % (20.0-40.0) 03/06/17 07:30 Grand % (Auto) 6.5 % (0.0-10.0) 03/06/17 07:30 Eos % (Auto) 2.3 % (0.0-4.0) 03/06/17 07:30 Baso % (Auto) 0.9 % (0.0-2.0) 03/06/17 07:30 Neut # 3.7 K/uL (1.8-7.0) 03/06/17 07:30 Lymph # 2.5 K/uL (1.0-4.3) 03/06/17 07:30 Grand # 0.5 K/uL (0.0-0.8) 03/06/17 07:30 Eos # 0.2 K/uL (0.0-0.7) 03/06/17 07:30 Baso # 0.1 K/uL (0.0-0.2) 03/06/17 07:30 PT 10.7 SECONDS (9.7-12.2) 03/03/17 05:26 INR 1.0 03/03/17 05:26 APTT 35 SECONDS (21-34) H 03/03/17 05:26 Sodium 131 mmol/L (132-148) L 03/06/17 07:30 Potassium 5.3 mmol/L (3.6-5.2) H 03/06/17 07:30 Chloride 97 mmol/L (98-107) L 03/06/17 07:30 Carbon Dioxide 26 mmol/L (22-30) 03/06/17 07:30 Anion Gap 14 (10-20) 03/06/17 07:30 BUN 33 mg/dL (7-17) H 03/06/17 07:30 Creatinine 1.0 mg/dL (0.7-1.2) 03/06/17 07:30 Est GFR ( Amer) > 60 03/06/17 07:30 Est GFR (Non-Af Amer) 56 03/06/17 07:30 POC Glucose (mg/dL) 248 mg/dL (65-110) H 03/06/17 11:17 Random Glucose 192 mg/dL (65-105) H 03/06/17 07:30 Hemoglobin A1c 8.9 % (4.2-6.5) H 03/04/17 07:17 Calcium 8.3 mg/dl (8.6-10.4) L 03/06/17 07:30 Phosphorus 4.7 mg/dL (2.5-4.5) H 03/06/17 07:30 Magnesium 1.9 mg/dL (1.6-2.3) 03/06/17 07:30 Total Bilirubin 0.4 mg/dL (0.2-1.3) 03/06/17 07:30 AST 35 U/L (14-36) 03/06/17 07:30 ALT 22 U/L (9-52) 03/06/17 07:30 Alkaline Phosphatase 119 U/L (38-126) 03/06/17 07:30 Total Creatine Kinase 63 U/L (30-135) 03/03/17 05:26 CK-MB (Mass) 0.58 ng/mL (0.0-3.38) 03/03/17 05:26 Troponin I < 0.0120 ng/mL (0.00-0.120) 03/03/17 05:26 Total Protein 8.0 g/dL (6.3-8.3) 03/06/17 07:30 Albumin 4.1 g/dL (3.5-5.0) 03/06/17 07:30 Globulin 3.9 gm/dL (2.2-3.9) 03/06/17 07:30 Albumin/Globulin Ratio 1.1 (1.0-2.1) 03/06/17 07:30 Urine Color Colorless (YELLOW) 03/03/17 05:49 Urine Clarity Clear (Clear) 03/03/17 05:49 Urine pH 8.0 (5.0-8.0) 03/03/17 05:49 Ur Specific Cross 1.005 (1.003-1.030) 03/03/17 05:49 Urine Protein Negative mg/dL (NEGATIVE) 03/03/17 05:49 Urine Glucose (UA) Normal mg/dL (Normal) 03/03/17 05:49 Urine Ketones Negative mg/dL (NEGATIVE) 03/03/17 05:49 Urine Blood Negative (NEGATIVE) 03/03/17 05:49 Urine Nitrate Negative (NEGATIVE) 03/03/17 05:49 Urine Bilirubin Negative (NEGATIVE) 03/03/17 05:49 Urine Urobilinogen Normal mg/dL (0.2-1.0) 03/03/17 05:49 Ur Leukocyte Esterase Neg Devon/uL (Negative) 03/03/17 05:49 Urine WBC (Auto) < 1 /hpf (0-5) 03/03/17 05:49 Urine RBC (Auto) < 1 /hpf (0-3) 03/03/17 05:49 Ur Squamous Epith Cells < 1 /hpf (0-5) 03/03/17 05:49 - Hospital Course Hospital Course: As per admission documentation, Patient is a 66 year old female from [facility] with a past medical history of HTN , diabetes and positive QFT gold test presenting dizziness, nausea and vomiting since midnight. Patient states she was at a friends house when she started to experience dizziness. The dizziness progressed over the next hour to where the patient became nauseous and vomited 3 times. The patient reports checking her blood pressure while at her friend's house, which reveled a maximum SBP ~230. The patient reports resolved chills and chest pain. The patient states the chest pain was short lasting, pressure that resolved quickly and never returned. Patient denies fevers, headaches, diarrhea, constipation, vision changes, headaches, numbness, tingling, muscle weakness and slurred speech. Hospital Course Patient admitted to telemetry for dizziness/nausea/vomiting. Patient's nausea and vomiting quickly improved during the patient's hospital stay. The patient was started on Meclazine 25mg PO q8h for the dizziness. Her dizziness improved slightly during her stay but was unable to be completely resolved. Head CT 03/03/17 - No evidence of an acute intracranial hemorrhage, midline shift or mass effect is identified. Brain MRI w/o 03/04/17 - Very limited age-related neuro degenerative changes are encountered in this patient with the remainder the examination unremarkable. No acute intracranial hemorrhage is identified or acute or subacute brain infarction. All exams were negative on patient. PT stated patient could not walk more than 20ft without getting dizzy and needed to sit down. It is believed that this is due to BPPV. The patient was discharged home on Meclazine and instructed to take it slow. This is a disorder that will need time and is unpredictable in its resolution. Discharge Instructions Patient is to be discharged home per Dr. Gupta. Patient is to follow up with her primary care physician upon discharge. If patient does not have a primary care physician, patient is to follow up in the neighborhood clinic located in the basement of [facility]. If any new or worsening symptoms, please call or go to nearest emergency room. Prescriptions given: Meclazine 25mg PO q8h disp 90 - take as needed. Discharge Exam - Head Exam Head Exam: ATRAUMATIC, NORMOCEPHALIC - Eye Exam Eye Exam: EOMI, Normal appearance, PERRL Pupil Exam: NORMAL ACCOMODATION - ENT Exam ENT Exam: Mucous Membranes Moist - Neck Exam Neck exam: Full Rom - Respiratory Exam Respiratory Exam: Clear to PA & Lateral, NORMAL BREATHING PATTERN, UNREMARKABLE. absent: Accessory Muscle Use, Rales, Rhonchi, Wheezes, Respiratory Distress - Cardiovascular Exam Cardiovascular Exam: REGULAR RHYTHM, +S1. absent: JVD - GI/Abdominal Exam GI & Abdominal Exam: Normal Bowel Sounds, Soft, Unremarkable. absent: Distended , Firm, Guarding, Hernia, Rigid, Tenderness - Extremities Exam Extremities exam: normal inspection - Neurological Exam Neurological exam: Alert, CN II-XII Intact, Oriented x3 - Psychiatric Exam Psychiatric exam: Normal Affect, Normal Mood - Skin Skin Exam: Dry, Warm Discharge Plan - Discharge Medications Prescriptions: Meclizine [Meclizine*] 25 mg PO Q8H #90 tab - Follow Up Plan Condition: FAIR Disposition: HOME/ ROUTINE Instructions: Meclizine (By mouth), Dizziness (GEN) Additional Instructions: Patient is to be discharged home per Dr. Gupta. Patient is to follow up with her primary care physician upon discharge. If patient does not have a primary care physician, patient is to follow up in the neighborhood clinic located in the basement of [facility]. If any new or worsening symptoms, please call or go to nearest emergency room. Prescriptions given: Meclazine 25mg PO q8h disp 90 - take as needed. Referrals: Clinic,Med Surg [Non-Staff] - <Maurisio Gupta - Last Filed: 03/06/17 17:57> Provider - Provider Date of Admission: 03/04/17 16:24 Attending physician: Maurisio Gupta DO Hospital Course - Lab Results Lab Results: Most Recent Lab Values WBC 6.9 K/uL (4.8-10.8) 03/06/17 07:30 RBC 3.80 Mil/uL (3.80-5.20) 03/06/17 07:30 Hgb 11.2 g/dL (11.0-16.0) 03/06/17 07:30 Hct 33.0 % (34.0-47.0) L 03/06/17 07:30 MCV 86.9 fL (81.0-99.0) 03/06/17 07:30 MCH 29.6 pg (27.0-31.0) 03/06/17 07:30 MCHC 34.1 g/dL (33.0-37.0) 03/06/17 07:30 RDW 13.1 % (11.5-14.5) 03/06/17 07:30 Plt Count 349 K/uL (130-400) 03/06/17 07:30 MPV 8.0 fL (7.2-11.7) 03/06/17 07:30 Neut % (Auto) 53.6 % (50.0-75.0) 03/06/17 07:30 Lymph % (Auto) 36.7 % (20.0-40.0) 03/06/17 07:30 Grand % (Auto) 6.5 % (0.0-10.0) 03/06/17 07:30 Eos % (Auto) 2.3 % (0.0-4.0) 03/06/17 07:30 Baso % (Auto) 0.9 % (0.0-2.0) 03/06/17 07:30 Neut # 3.7 K/uL (1.8-7.0) 03/06/17 07:30 Lymph # 2.5 K/uL (1.0-4.3) 03/06/17 07:30 Grand # 0.5 K/uL (0.0-0.8) 03/06/17 07:30 Eos # 0.2 K/uL (0.0-0.7) 03/06/17 07:30 Baso # 0.1 K/uL (0.0-0.2) 03/06/17 07:30 PT 10.7 SECONDS (9.7-12.2) 03/03/17 05:26 INR 1.0 03/03/17 05:26 APTT 35 SECONDS (21-34) H 03/03/17 05:26 Sodium 131 mmol/L (132-148) L 03/06/17 07:30 Potassium 5.3 mmol/L (3.6-5.2) H 03/06/17 07:30 Chloride 97 mmol/L (98-107) L 03/06/17 07:30 Carbon Dioxide 26 mmol/L (22-30) 03/06/17 07:30 Anion Gap 14 (10-20) 03/06/17 07:30 BUN 33 mg/dL (7-17) H 03/06/17 07:30 Creatinine 1.0 mg/dL (0.7-1.2) 03/06/17 07:30 Est GFR ( Amer) > 60 03/06/17 07:30 Est GFR (Non-Af Amer) 56 03/06/17 07:30 POC Glucose (mg/dL) 170 mg/dL (65-110) H 03/06/17 16:11 Random Glucose 192 mg/dL (65-105) H 03/06/17 07:30 Hemoglobin A1c 8.9 % (4.2-6.5) H 03/04/17 07:17 Calcium 8.3 mg/dl (8.6-10.4) L 03/06/17 07:30 Phosphorus 4.7 mg/dL (2.5-4.5) H 03/06/17 07:30 Magnesium 1.9 mg/dL (1.6-2.3) 03/06/17 07:30 Total Bilirubin 0.4 mg/dL (0.2-1.3) 03/06/17 07:30 AST 35 U/L (14-36) 03/06/17 07:30 ALT 22 U/L (9-52) 03/06/17 07:30 Alkaline Phosphatase 119 U/L (38-126) 03/06/17 07:30 Total Creatine Kinase 63 U/L (30-135) 03/03/17 05:26 CK-MB (Mass) 0.58 ng/mL (0.0-3.38) 03/03/17 05:26 Troponin I < 0.0120 ng/mL (0.00-0.120) 03/03/17 05:26 Total Protein 8.0 g/dL (6.3-8.3) 03/06/17 07:30 Albumin 4.1 g/dL (3.5-5.0) 03/06/17 07:30 Globulin 3.9 gm/dL (2.2-3.9) 03/06/17 07:30 Albumin/Globulin Ratio 1.1 (1.0-2.1) 03/06/17 07:30 Urine Color Colorless (YELLOW) 03/03/17 05:49 Urine Clarity Clear (Clear) 03/03/17 05:49 Urine pH 8.0 (5.0-8.0) 03/03/17 05:49 Ur Specific Cross 1.005 (1.003-1.030) 03/03/17 05:49 Urine Protein Negative mg/dL (NEGATIVE) 03/03/17 05:49 Urine Glucose (UA) Normal mg/dL (Normal) 03/03/17 05:49 Urine Ketones Negative mg/dL (NEGATIVE) 03/03/17 05:49 Urine Blood Negative (NEGATIVE) 03/03/17 05:49 Urine Nitrate Negative (NEGATIVE) 03/03/17 05:49 Urine Bilirubin Negative (NEGATIVE) 03/03/17 05:49 Urine Urobilinogen Normal mg/dL (0.2-1.0) 03/03/17 05:49 Ur Leukocyte Esterase Neg Devon/uL (Negative) 03/03/17 05:49 Urine WBC (Auto) < 1 /hpf (0-5) 03/03/17 05:49 Urine RBC (Auto) < 1 /hpf (0-3) 03/03/17 05:49 Ur Squamous Epith Cells < 1 /hpf (0-5) 03/03/17 05:49 Attending/Attestation - Attestation I have personally seen and examined this patient.: Yes I have fully participated in the care of the patient.: Yes I have reviewed all pertinent clinical information, including history, physical exam and plan: Yes Notes (Text): Medical Attending: Patient was seen and examined by me. Agree with the above note by the resident The patient reported continued improvement with her dizziness. She has been on meclizine as well as medication for blood pressure control. As mentioned previously on admission she had very elevated BP numbers and we were concerned for possible CVA so, CT and also MRI were done which were stable. She never had neuro defecits on exam. Just her telling us of persistent dizziness/vertigo sensation. She is able to walk however still with some dizziness. Patient should continue taking the meclizine and importantly her BP medications while at home. thank you Maurisio Gupta 03/06/17 17:55
[2017-03-06 17:18] VITALS: PULSE 74
== END 2017-03-06 17:23 | disposition home or self-care (01) | DRG 134 ==
LOC: C.ER 04:08 → C.9E 07:13 → C.5S 08:00 → OBSVTOIN 03-04 16:24
PROVIDERS: ADMIT Hospitalist; ATTEND Hospitalist
DX: I10 Essential (primary) hypertension (principal); E03.9 Hypothyroidism, unspecified; E11.9 Type 2 diabetes mellitus without complications; I25.10 Atherosclerotic heart disease of native coronary artery without angina pectoris; Z68.22 Body mass index [BMI] 22.0-22.9, adult

== ENCOUNTER 2017-11-24 09:32 | Inpatient (IN) | payer MEDICAID, OTHER ==
[2017-11-24 09:32] VITALS: BMI 24.0
[~2017-11-24 09:32] MED LIST: Gadodiamide 287 MG/ML VIAL (15ML) IV ONE
--- NOTE | 2017-11-24 10:17 | RAD ---
PROCEDURE: Left Foot Radiographs. HISTORY: PAIN TO GREAT TOE AND SECOND HAS ULCERS COMPARISON: None available. FINDINGS: BONES: Destructive changes of the distal 1st digit at site of soft tissue swelling and ulceration. Remainder of the visualized osseous structures appear intact. JOINTS: No dislocation. SOFT TISSUES: Marked soft tissue swelling of the 1st digit. Ulceration at the level of the distal 1st phalanx. OTHER FINDINGS: None. IMPRESSION: Destructive changes, soft tissue swelling, and ulceration at the level of the distal 1st digit worrisome for acute osteomyelitis. Correlate clinically.
--- NOTE | 2017-11-24 10:46 | C.PDOC ---
History Of Present Illness 66-year-old female, PMHx includes Diabetes, presents to the emergency department with complaints of pain to right big toe for the past five days. Patient has a history of an ulcer to the right great toe. She states she wore tight shoes, and when she took them off she notes swelling and pain to the area , associated with a new wound to the second toe. Patient states she noticed discharge from area. Patient has been soaking foot in water with vinegar. She denies any fever, chills, numbness. Time Seen by Provider: 11/24/17 09:49 Chief Complaint (Nursing): Lower Extremity Problem/Injury History Per: Patient History/Exam Limitations: no limitations Onset/Duration Of Symptoms: Days Current Symptoms Are (Timing): Still Present Severity: Moderate Past Medical History Reviewed: Historical Data, Nursing Documentation, Vital Signs Vital Signs: Last Vital Signs Temp 98.9 F 11/24/17 14:22 Pulse 99 H 11/24/17 14:22 Resp 17 11/24/17 14:22 BP 176/72 H 11/24/17 14:22 Pulse Ox 97 11/24/17 14:22 - Medical History PMH: Diabetes, HTN, Hypothyroidism Denies: Chronic Kidney Disease Surgical History: Appendectomy Family History: States: [place], CAD - Social History Hx Tobacco Use: No Hx Alcohol Use: No Hx Substance Use: No - Immunization History Hx Tetanus Toxoid Vaccination: Yes Hx Influenza Vaccination: No Hx Pneumococcal Vaccination: Yes Review Of Systems Constitutional: Negative for: Fever Gastrointestinal: Negative for: Nausea, Vomiting Musculoskeletal: Positive for: Foot Pain Skin: Negative for: Rash Neurological: Negative for: Weakness, Numbness, Headache Physical Exam - Physical Exam Appears: Non-toxic, No Acute Distress Skin: Normal Color, Warm, Dry, No Rash Head: Atraumatic, Normacephalic Eye(s): bilateral: Normal Inspection, EOMI Nose: Normal Oral Mucosa: Moist Lips: Normal Appearing Neck: Normal ROM Chest: Symmetrical Cardiovascular: Rhythm Regular, No Murmur Respiratory: Normal Breath Sounds, No Accessory Muscle Use Extremity: No Calf Tenderness, No Deformity, Other (Right foot: first digit with chronic ulcer to the volar surface, (+)moderate swelling, maceration. Second toe: volar surface with superficial acute ulcer with weeping. No discharge, (+)mild surrounding erythema to toes.) Pulses: Left Dorsalis Pedis: Normal, Right Dorsalis Pedis: Normal Neurological/Psych: Oriented x3, Normal Speech ED Course And Treatment - Laboratory Results Result Diagrams: 11/24/17 10:37 11/24/17 10:37 O2 Sat by Pulse Oximetry: 99 Pulse Ox Interpretation: Normal (RA) - Other Rad XR R toe X-Ray: Viewed By Me, Read By Radiologist Interpretation: Accession No. : [id number]. Patient Name / ID : ROBERTO PHILIPPE / [id number]. Exam Date : 11/24/2017 10:01:24 ( Approved ). Study Comment : Sex / Age : F / 66Y. Creator : Luz Maria Gonzalez MD. Dictator : Luz Maria Gonzalez MD. Aircraft Detail Draftsperson : Inventory Accountant : Luz Maria Gonzalez MD. Approver2 : Report Date : 11/24/2017 10:15:07. My Comment : . PROCEDURE: Left Foot Radiographs. HISTORY: PAIN TO GREAT TOE AND SECOND HAS ULCERS. COMPARISON: None available. FINDINGS: BONES: Destructive changes of the distal 1st digit at site of soft tissue swelling and ulceration. Remainder of the visualized osseous structures appear intact. JOINTS: No dislocation. SOFT TISSUES: Marked soft tissue swelling of the 1st digit. Ulceration at the level of the distal 1st phalanx. OTHER FINDINGS: None. IMPRESSION: Destructive changes, soft tissue swelling, and ulceration at the level of the distal 1st digit worrisome for acute osteomyelitis. Correlate clinically. Medical Decision Making Medical Decision Making: Impression: Infected toe ulcer Plan * Bloodwork * Wound culture * XR R Foot * UA Progress: 09:56 Podiatry paged, pending call-back. [address] Hernandez Bach at bedside to evaluate Per podiatry patient to be admitted for osteomyelitis and possible toe amputation. Discussed case with DR Gupta hospitalist implementation project manager who accepted patient to service. Disposition - Disposition Disposition: HOSPITALIZED Disposition Time: 12:40 Condition: STABLE - POA Present On Arrival: Poor Glycemic Control - Clinical Impression Clinical Impression: Toe ulcer due to DM, Osteomyelitis - Scribe Statement The provider has reviewed the documentation as recorded by the Scribe (Deanna Gee) All medical record entries made by the Scribe were at my direction and personally dictated by me. I have reviewed the chart and agree that the record accurately reflects my personal performance of the history, physical exam, medical decision making, and the department course for this patient. I have also personally directed, reviewed, and agree with the discharge instructions and disposition. Decision To Admit - Pt Status Changed To: Hospital Disposition Of: Inpatient - Admit Certification Admit to Inpatient:: After my assessment, the patient will require hospitalization for at least two midnights. This is because of the severity of symptoms shown, intensity of services needed, and/or the medical risk in this patient being treated as an outpatient. - InPatient: Physician Admission Certification: I certify that this patient requires 2 or more midnights of care for the following reason:: Patient with h/o DM and toe ulcer, having pain and supsect osteomyelitis. Will admit and need podiatary consult and ID - . Bed Request Type: Regular Admitting Physician: Maurisio Gupta Patient Diagnosis: Toe ulcer due to DM, Osteomyelitis
[2017-11-24 10:53] LABS: BASO # 0.1 K/uL (0.0-0.2); BASO % 0.4 % (0.0-2.0); EOS # 0.4 K/uL (0.0-0.7); EOS % 2.6 % (0.0-4.0); HEMOGLOBIN 8.7 g/dL (11.0-16.0); LYMPH # 2.5 K/uL (1.0-4.3); MEAN CELL VOLUME 86.5 fL (81.0-99.0); MEAN CORPUSCULAR HEMOGLOBIN 28.6 pg (27.0-31.0); MEAN PLATELET VOLUME 7.7 fL (7.2-11.7); MONO # 0.7 K/uL (0.0-0.8); MONO % 5.1 % (0.0-10.0); NEUT # 10.5 K/uL (1.8-7.0); NEUT % 73.9 % (50.0-75.0); RBC 3.03 Mil/uL (3.80-5.20); RED CELL DISTRIBUTION WIDTH 14.3 % (11.5-14.5); WHITE BLOOD COUNT 14.1 K/uL (4.8-10.8)
[2017-11-24 11:03] LABS: SQUAMOUS EPITHIAL < 1 /hpf (0-5); URINE BILIRUBIN NEGATIVE (NEGATIVE); URINE BLOOD NEGATIVE (NEGATIVE); URINE CLARITY Clear (Clear); URINE COLOR Yellow (YELLOW); URINE GLUCOSE (UA) NORMAL (Normal); URINE LEUKOCYTE ESTERASE NEG Leu/uL (Negative); URINE PROTEIN NEGATIVE (NEGATIVE); URINE UROBILINOGEN NORMAL mg/dL (0.2-1.0)
[2017-11-24 11:23] LABS: ALB/GLOB RATIO 0.9 (1.0-2.1); ALBUMIN 3.7 g/dL (3.5-5.0); CALCIUM 9.1 mg/dl (8.6-10.4)
--- NOTE | 2017-11-24 13:02 | CP.PCM.CON ---
History of Present Illness - History of Present Illness History of Present Illness: Podiatry Consult Note: Dr. Conn 66 year old female patient with PMHx of HTN, and diabetes was seen and evaluated at bedside in ED for right toe pain and swelling. Patient reports that she has had an ulcer on the right big toe for a long time but believes it started getting worst after wearing the tight shoes. Reports that she does not have a foot doctor and is managed by her primary care doctor. Patient states that past Friday she noticed some swelling in her toe and was not able to fit her foot in the shoe. Patient reports that since then it progressively started getting bad overtime and started noticing some redness. Patient states that she also noticed some drainage from the toe. Reports that she has been dressing the wound with betadine prior to it all started. States that since the swelling and redness, she has been soaking her foot in the warm water. Patient denies of any recent abx treatment and denies of being on any abx treatment at this time. Patient reports her pain as 8/10 on VAS today. Patient denies of N/V/C/SOB/CP/ headache. Reports that she may have had a fever but is not sure. She also reports of a new small ulcer on the tip of the 2nd toe today. Denies of any other pedal complains at this time. PMHx: HTN, diabetes PSHx: Appendectomy SHx: Denies tobacco, ETOH, or drug use Allergies: NKDA Review of Systems - Constitutional Constitutional: As Per HPI Past Patient History - Infectious Disease Hx of Infectious Diseases: None - Past Social History Smoking Status: Never Smoked - CARDIAC Hx Hypertension: Yes - PULMONARY Hx Respiratory Disorders: No - NEUROLOGICAL Hx Neurological Disorder: No - HEENT Hx HEENT Problems: No - RENAL Hx Chronic Kidney Disease: No - ENDOCRINE/METABOLIC Hx Hypothyroidism: Yes - HEMATOLOGICAL/ONCOLOGICAL Hx Blood Transfusions: No - INTEGUMENTARY Other/Comment: right big toe dry wound - MUSCULOSKELETAL/RHEUMATOLOGICAL Hx Falls: No - GASTROINTESTINAL Hx Gastrointestinal Disorders: No - GENITOURINARY/GYNECOLOGICAL Hx Genitourinary Disorders: No - PSYCHIATRIC Hx Substance Use: No - SURGICAL HISTORY Hx Appendectomy: Yes - ANESTHESIA Hx Anesthesia: Yes Hx Anesthesia Reactions: No Meds Allergies/Adverse Reactions: Allergies Allergy/AdvReac Type Severity Reaction Status Date / Time No Known Allergies Allergy Verified 02/14/17 08:16 Physical Exam - Constitutional Appears: Well, Non-toxic, No Acute Distress - Extremities Exam Additional comments: Bilateral LE exam VASC: DP/PT pulses are palpable 2/4, Cap refill time: < 3 sec to all digits, Temp gradient: warm to cool from proximal to distal, localized non-pitting edema noted on the right hallux DERM: Wound present on the plantar medial aspect of the right hallux measuring approx 2 cm x 1 cm x 0.5 cm, wound bed is nacro (20%)-fibro (40%)-grannular (40% ) with mild serous drainage, wally-wound edges are hyperkeratotic with diffuse maceration noted, small wound measuring approx 0.5 cm x 0.5 cm x 0.2 cm on the dorso-medial aspect of the hallux which appears to have a sinus tract with the plantar wound, minimal fluctuance noted on the dorsal hallux, minimal wally- wound erythema, malodor present, + probe to bone; epidermal lysis of the right foot 2nd digit on the distal aspect noted with surrounding erythema NEURO: Protective sensation mildly diminished ORTHO: pain on palpation of the hallux, no pain during AROM or PROM of the right hallux - Neurological Exam Neurological exam: Alert, Oriented x3 - Psychiatric Exam Psychiatric exam: Normal Affect, Normal Mood Results - Vital Signs Recent Vital Signs: Last Vital Signs Temp 98.6 F 11/24/17 11:57 Pulse 69 11/24/17 11:57 Resp 17 11/24/17 11:57 BP 127/55 L 11/24/17 11:57 Pulse Ox 99 11/24/17 11:57 - Labs Result Diagrams: 11/24/17 10:37 11/24/17 10:37 Labs: Laboratory Results - last 24 hr 11/24/17 11/24/17 11/24/17 10:13 10:37 10:37 WBC 14.1 H RBC 3.03 L Hgb 8.7 L Hct 26.2 L MCV 86.5 MCH 28.6 MCHC 33.0 RDW 14.3 Plt Count 461 H D MPV 7.7 Neut % (Auto) 73.9 Lymph % (Auto) 18.0 L Stokes % (Auto) 5.1 Eos % (Auto) 2.6 Baso % (Auto) 0.4 Neut # (Auto) 10.5 H Lymph # (Auto) 2.5 Stokes # (Auto) 0.7 Eos # (Auto) 0.4 Baso # (Auto) 0.1 ESR 129 H Sodium 141 Potassium 4.6 Chloride 106 Carbon Dioxide 21 L Anion Gap 19 BUN 33 H Creatinine 1.3 H Est GFR ( Amer) 50 Est GFR (Non-Af Amer) 41 POC Glucose (mg/dL) 219 H Random Glucose 183 H Calcium 9.1 Total Bilirubin 0.3 AST 27 ALT 34 Alkaline Phosphatase 202 H D Total Protein 7.9 Albumin 3.7 Globulin 4.3 H Albumin/Globulin Ratio 0.9 L Urine Color Urine Clarity Urine pH Ur Specific [place] Urine Protein Urine Glucose (UA) Urine Ketones Urine Blood Urine Nitrate Urine Bilirubin Urine Urobilinogen Ur Leukocyte Esterase Urine WBC (Auto) Ur Squamous Epith Cells 11/24/17 10:48 WBC RBC Hgb Hct MCV MCH MCHC RDW Plt Count MPV Neut % (Auto) Lymph % (Auto) Stokes % (Auto) Eos % (Auto) Baso % (Auto) Neut # (Auto) Lymph # (Auto) Stokes # (Auto) Eos # (Auto) Baso # (Auto) ESR Sodium Potassium Chloride Carbon Dioxide Anion Gap BUN Creatinine Est GFR ( Amer) Est GFR (Non-Af Amer) POC Glucose (mg/dL) Random Glucose Calcium Total Bilirubin AST ALT Alkaline Phosphatase Total Protein Albumin Globulin Albumin/Globulin Ratio Urine Color Yellow Urine Clarity Clear Urine pH 5.0 Ur Specific [place] 1.012 Urine Protein Negative Urine Glucose (UA) Normal Urine Ketones Negative Urine Blood Negative Urine Nitrate Negative Urine Bilirubin Negative Urine Urobilinogen Normal Ur Leukocyte Esterase Neg Urine WBC (Auto) 1 Ur Squamous Epith Cells < 1 Assessment & Plan - Assessment and Plan (Free Text) Assessment: 66 year old female with PMHx of DM and HTN was evaluated for 1). infected right plantar hallux wound with possible OM (Patel 3) 2) right 2nd digit wound Plan: Patient seen and evaluated Discussed plan with attending Dr. Conn Labs, vitals and charts reviewed - elevated WBC, ESR X-rays of the foot ordered - Cortical teto erosion with periosteal teto reaction consistent with OM MRI ordered Right hallux wound cultures taken - pending Wound cleaned with saline and dressing applied using betadine, DSD ID consult IDALIA/PVR ordered - pending Podiatry plans for POSSIBLE amputation following ID rec Thank you for the podiatry consult and allowing to take part in patient care Will continue to monitor patient closely while in-house - Date & Time Date: 11/24/17 Time: 13:30
[2017-11-24] MEDS: Piperacill/Tazo 3.375gm in Dex 3.375 GM/50 ML BAG IVPB SCH ×2 (14:22→22:22)
[2017-11-24] MEDS ORDERED: Glucagon Recombinant 1 mg Inj IM PRN (15:30)
[2017-11-24] MEDS ORDERED: Dextrose 50% SYRINGE Inj (50 ml) IV PRN (15:30)
--- NOTE | 2017-11-24 15:57 | CP.PCM.HP ---
<Celestino Knutson - Last Filed: 11/24/17 18:17> History of Present Illness - History of Present Illness History of Present Illness: PGY-1 H&P for Dr. Gupta Patient is a 66 yo F with PMHx of DM, HTN, hypothyroidism, and anemia who presents to the ED with worsening R toe pain and swelling since last Friday. As per patient, she does not follow a vp client services regularly but follows Dr. Nails at [facility]. Per patient, she has had the ulcer on her R hallux for a "long time" but symptoms worsened last Friday when she wore tight shoes. Since then, it has gotten progressively worse with increased redness and swelling. Pain rated 8/10, described as "tightness" around her toe, with radiation to ankle. Patient states she also noticed some drainage from the toe. Of note, there is a small ulceration on the top of the R 2nd toe, which patient states appeared 2 days ago. She has tried a solution of warm water, salt, and vinegar for the pain which helped initially. Endorses chills, diaphoresis, and dry cough. No fevers, headaches, dizziness, chest pain, sob, abdominal pain, nausea/vomiting/diarrhea/constipation, dysuria, or change in stools. PMHx: HTN, DM, hypothyroidism, anemia PSHx: appendectomy Allergies: NKDA Home Medications: ASA 81 mg PO daily, Metformin 1000 mg PO BID, Lisinopril 2.5 mg PO daily, Norvasc 10 mg PO daily, Synthroid 75 mcg PO daily Family Hx: Mother-[place], Social Hx: denies alcohol, tobacco, illicit drug use; Lives with [id number], Mylene Frazier Present on Admission - Present on Admission Any Indicators Present on Admission: Yes History of Uncontrolled Diabetes: Yes Review of Systems - Constitutional Constitutional: As Per HPI, Chills. absent: Anorexia, Fatigue, Fever, Headache , Weakness - EENT Eyes: As Per HPI Nose/Mouth/Throat: As Per HPI - Cardiovascular Cardiovascular: As Per HPI, Diaphoresis. absent: Chest Pain, Chest Pain at Rest , Chest Pain with Activity, Dyspnea, Edema, Lightheadedness, Syncope - Respiratory Respiratory: As Per HPI, Cough (dry). absent: Dyspnea, Hemoptysis, Dyspnea on Exertion, Wheezing, Stridor - Gastrointestinal Gastrointestinal: As Per HPI. absent: Abdominal Pain, Change in Bowel Habits, Change in Stool Character, Diarrhea, Nausea, Vomiting - Genitourinary Genitourinary: As Per HPI. absent: Change in Urinary Stream, Dysuria, Urinary Incontinence - Musculoskeletal Musculoskeletal: As Per HPI, Limited Range of Motion (R hallux). absent: Muscle Weakness, Numbness, Tingling - Neurological Neurological: As Per HPI - Endocrine Endocrine: As Per HPI Past Patient History - Infectious Disease Hx of Infectious Diseases: None - Past Social History Smoking Status: Never Smoked - CARDIAC Hx Hypertension: Yes - PULMONARY Hx Respiratory Disorders: No - NEUROLOGICAL Hx Neurological Disorder: No - HEENT Hx HEENT Problems: No - RENAL Hx Chronic Kidney Disease: No - ENDOCRINE/METABOLIC Hx Hypothyroidism: Yes - HEMATOLOGICAL/ONCOLOGICAL Hx Blood Transfusions: No - INTEGUMENTARY Other/Comment: right big toe dry wound - MUSCULOSKELETAL/RHEUMATOLOGICAL Hx Falls: No - GASTROINTESTINAL Hx Gastrointestinal Disorders: No - GENITOURINARY/GYNECOLOGICAL Hx Genitourinary Disorders: No - PSYCHIATRIC Hx Substance Use: No - SURGICAL HISTORY Hx Appendectomy: Yes - ANESTHESIA Hx Anesthesia: Yes Hx Anesthesia Reactions: No Meds Allergies/Adverse Reactions: Allergies Allergy/AdvReac Type Severity Reaction Status Date / Time No Known Allergies Allergy Verified 02/14/17 08:16 Physical Exam - Constitutional Appears: Non-toxic, No Acute Distress - Head Exam Head Exam: ATRAUMATIC, NORMAL INSPECTION, NORMOCEPHALIC - Eye Exam Eye Exam: EOMI, Normal appearance Pupil Exam: NORMAL ACCOMODATION - ENT Exam ENT Exam: Mucous Membranes Moist, Normal Exam - Neck Exam Neck exam: Positive for: Normal Inspection - Respiratory Exam Respiratory Exam: Clear to Auscultation Bilateral, NORMAL BREATHING PATTERN. absent: Rales, Rhonchi, Wheezes - Cardiovascular Exam Cardiovascular Exam: REGULAR RHYTHM, +S1, +S2 - GI/Abdominal Exam GI & Abdominal Exam: Normal Bowel Sounds, Soft. absent: Distended, Firm, Guarding, Organomegaly, Rebound, Tenderness - Extremities Exam Extremities exam: Positive for: normal capillary refill, pedal pulses present Additional comments: Temp gradient: warm to cool from proximal to distal, localized non-pitting edema noted on the right hallux - Back Exam Back exam: NORMAL INSPECTION - Neurological Exam Neurological exam: Alert, CN II-XII Intact, Oriented x3 - Psychiatric Exam Psychiatric exam: Normal Affect, Normal Mood - Skin Additional comments: Wound present on the plantar medial aspect of the right hallux: 2 cm x 1 cm x 0.5 cm wound bed is nacro (20%)-fibro (40%)-grannular (40%) with mild serous drainage, wally-wound edges are hyperkeratotic with diffuse maceration noted small wound: ~0.5 cm x 0.5 cm x 0.2 cm on the dorso-medial aspect of the hallux which appears to have a sinus tract with the plantar wound minimal fluctuance noted on the dorsal hallux, minimal wally-wound erythema, malodorous, + probe to bone epidermal lysis of the right foot 2nd digit on the distal aspect noted with surrounding erythema Results - Vital Signs Recent Vital Signs: Last Vital Signs Temp 98.9 F 11/24/17 14:22 Pulse 99 H 11/24/17 14:22 Resp 17 11/24/17 14:22 BP 176/72 H 11/24/17 14:22 Pulse Ox 99 11/24/17 14:49 - Labs Result Diagrams: 11/24/17 10:37 11/24/17 10:37 Labs: Laboratory Results - last 24 hr 11/24/17 11/24/17 11/24/17 10:13 10:37 10:37 WBC 14.1 H RBC 3.03 L Hgb 8.7 L Hct 26.2 L MCV 86.5 MCH 28.6 MCHC 33.0 RDW 14.3 Plt Count 461 H D MPV 7.7 Neut % (Auto) 73.9 Lymph % (Auto) 18.0 L Edgar % (Auto) 5.1 Eos % (Auto) 2.6 Baso % (Auto) 0.4 Neut # (Auto) 10.5 H Lymph # (Auto) 2.5 Edgar # (Auto) 0.7 Eos # (Auto) 0.4 Baso # (Auto) 0.1 ESR 129 H Sodium 141 Potassium 4.6 Chloride 106 Carbon Dioxide 21 L Anion Gap 19 BUN 33 H Creatinine 1.3 H Est GFR ( Amer) 50 Est GFR (Non-Af Amer) 41 POC Glucose (mg/dL) 219 H Random Glucose 183 H Calcium 9.1 Total Bilirubin 0.3 AST 27 ALT 34 Alkaline Phosphatase 202 H D Total Protein 7.9 Albumin 3.7 Globulin 4.3 H Albumin/Globulin Ratio 0.9 L Urine Color Urine Clarity Urine pH Ur Specific [place] Urine Protein Urine Glucose (UA) Urine Ketones Urine Blood Urine Nitrate Urine Bilirubin Urine Urobilinogen Ur Leukocyte Esterase Urine WBC (Auto) Ur Squamous Epith Cells 11/24/17 10:48 WBC RBC Hgb Hct MCV MCH MCHC RDW Plt Count MPV Neut % (Auto) Lymph % (Auto) Edgar % (Auto) Eos % (Auto) Baso % (Auto) Neut # (Auto) Lymph # (Auto) Edgar # (Auto) Eos # (Auto) Baso # (Auto) ESR Sodium Potassium Chloride Carbon Dioxide Anion Gap BUN Creatinine Est GFR ( Amer) Est GFR (Non-Af Amer) POC Glucose (mg/dL) Random Glucose Calcium Total Bilirubin AST ALT Alkaline Phosphatase Total Protein Albumin Globulin Albumin/Globulin Ratio Urine Color Yellow Urine Clarity Clear Urine pH 5.0 Ur Specific [place] 1.012 Urine Protein Negative Urine Glucose (UA) Normal Urine Ketones Negative Urine Blood Negative Urine Nitrate Negative Urine Bilirubin Negative Urine Urobilinogen Normal Ur Leukocyte Esterase Neg Urine WBC (Auto) 1 Ur Squamous Epith Cells < 1 Assessment & Plan - Assessment and Plan (Free Text) Assessment: 66 yo F with PMHx of DM, HTN, hypythyroidism, anemia, presenting with worsening R hallux pain and swelling. Podiatry on board: infected R plantar hallux wound, likely osteomyelitis and R 2nd digit wound. Plan: Osteomyelitis R hallux -R hallux warm to touch, TTP, swollen, erythematous, + probe to bone -WBC 14.1 -ESR 129 -Podiatry (Dr. Conn) recs appreciated -XR foot: Cortical teto erosion with periosteal teto reaction consistent with OM -f/u MRI foot -Right hallux wound cultures taken - pending -IDALIA/PVR ordered - pending -Wound cleaned with saline and dressing applied using betadine, DSD -plans for POSSIBLE amputation following ID rec -f/u CXR, EKG -f/u ID (Dr. Johnson) recs Medications: -Zosyn 3.375 mg IVPB q8H per ID -home ASA 81 mg PO daily held in preparation for possible surgery, per Dr. Gupta DM -random glucose 183 -f/u HbA1C -ISS -hypoglycemic protocol -continue home medication: -Metformin 1000 mg PO BID HTN -continue home meds: -Norvasc 10 mg PO daily -Lisinopril 2.5 mg PO daily Hx of Hypothyroidism -continue home med: -Synthroid 75 mcg PO daily PPx, Diet, Disposition -DVT ppx: heparin 5000 Units sc q8 -diabetic diet Case discussed with Dr. Candy Knutson DO, PGY-1 <Maurisio Gupta H - Last Filed: 11/24/17 18:53> Results - Vital Signs Recent Vital Signs: Last Vital Signs Temp 97.4 F L 11/24/17 18:00 Pulse 73 11/24/17 18:00 Resp 20 11/24/17 18:00 BP 139/62 11/24/17 18:00 Pulse Ox 99 11/24/17 18:00 - Labs Result Diagrams: 11/24/17 10:37 11/24/17 10:37 Labs: Laboratory Results - last 24 hr 11/24/17 11/24/17 11/24/17 10:13 10:37 10:37 WBC 14.1 H RBC 3.03 L Hgb 8.7 L Hct 26.2 L MCV 86.5 MCH 28.6 MCHC 33.0 RDW 14.3 Plt Count 461 H D MPV 7.7 Neut % (Auto) 73.9 Lymph % (Auto) 18.0 L Edgar % (Auto) 5.1 Eos % (Auto) 2.6 Baso % (Auto) 0.4 Neut # (Auto) 10.5 H Lymph # (Auto) 2.5 Edgar # (Auto) 0.7 Eos # (Auto) 0.4 Baso # (Auto) 0.1 ESR 129 H Sodium 141 Potassium 4.6 Chloride 106 Carbon Dioxide 21 L Anion Gap 19 BUN 33 H Creatinine 1.3 H Est GFR ( Amer) 50 Est GFR (Non-Af Amer) 41 POC Glucose (mg/dL) 219 H Random Glucose 183 H Calcium 9.1 Total Bilirubin 0.3 AST 27 ALT 34 Alkaline Phosphatase 202 H D Total Protein 7.9 Albumin 3.7 Globulin 4.3 H Albumin/Globulin Ratio 0.9 L Urine Color Urine Clarity Urine pH Ur Specific [place] Urine Protein Urine Glucose (UA) Urine Ketones Urine Blood Urine Nitrate Urine Bilirubin Urine Urobilinogen Ur Leukocyte Esterase Urine WBC (Auto) Ur Squamous Epith Cells 11/24/17 11/24/17 10:48 17:16 WBC RBC Hgb Hct MCV MCH MCHC RDW Plt Count MPV Neut % (Auto) Lymph % (Auto) Edgar % (Auto) Eos % (Auto) Baso % (Auto) Neut # (Auto) Lymph # (Auto) Edgar # (Auto) Eos # (Auto) Baso # (Auto) ESR Sodium Potassium Chloride Carbon Dioxide Anion Gap BUN Creatinine Est GFR ( Amer) Est GFR (Non-Af Amer) POC Glucose (mg/dL) 145 H Random Glucose Calcium Total Bilirubin AST ALT Alkaline Phosphatase Total Protein Albumin Globulin Albumin/Globulin Ratio Urine Color Yellow Urine Clarity Clear Urine pH 5.0 Ur Specific [place] 1.012 Urine Protein Negative Urine Glucose (UA) Normal Urine Ketones Negative Urine Blood Negative Urine Nitrate Negative Urine Bilirubin Negative Urine Urobilinogen Normal Ur Leukocyte Esterase Neg Urine WBC (Auto) 1 Ur Squamous Epith Cells < 1 Attending/Attestation - Attestation I have personally seen and examined this patient.: Yes I have fully participated in the care of the patient.: Yes I have reviewed all pertinent clinical information: Yes Notes (Text): 11/24/17 18:53 Medical attending: Patient was seen and examined by me, reviewed the above note by the medical insurance verifier and agree with the above note. The patient was seen in ER bed 10. At the time I came at the medical residents the foot with the toe in question had already been extensively wrapped with gauze and bandage. I did not unwrap these however I did look at the pictures of the toe that were taken before wrapping and they are very extensive concerning for infection. I also reviewed the x-ray of the foot and there is a lot of bony erosion of the great toe she says it's painful it is difficult for her to walk. I was able to feel for the dorsalis pedis pulses also her feet feel warm. The patient will need to be on IV antibiotics There is a real concern that this could be osteomyelitis especially looking at the x-rays before There is a pending MRI ordered by podiatry at this moment It appears that considering the extensive nature of the toe that the patient may require amputation Maurisio Gupta
[2017-11-24] MEDS: (Novolin R) Insulin Human Regular 100 units/ml vial SC SCH ×2 (18:21→22:22)
[2017-11-25] MEDS: Piperacill/Tazo 3.375gm in Dex 3.375 GM/50 ML BAG IVPB SCH ×3 (05:22→21:41)
[2017-11-25] MEDS ORDERED: Levothyroxine 25 MCG TAB PO SCH (06:30)
[2017-11-25 07:38] LABS: ALB/GLOB RATIO 0.8 (1.0-2.1); ALBUMIN 3.3 g/dL (3.5-5.0); ALT/SGPT 29 U/L (9-52); AST/SGOT 44 U/L (14-36); BLOOD UREA NITROGEN 26 mg/dL (7-17); CALCIUM 8.8 mg/dl (8.6-10.4); GFR NON-AFRICAN AMERICAN 50
[2017-11-25] MEDS: (Novolin R) Insulin Human Regular 100 units/ml vial SC SCH ×4 (08:08→21:40)
--- NOTE | 2017-11-25 11:10 | RAD ---
Date of service: 11/24/2017 HISTORY: cardiac clearance COMPARISON: No prior. FINDINGS: LUNGS: No active pulmonary disease. PLEURA: No significant pleural effusion identified, no pneumothorax apparent. CARDIOVASCULAR: Normal. OSSEOUS STRUCTURES: No significant abnormalities. VISUALIZED UPPER ABDOMEN: Normal. OTHER FINDINGS: None. IMPRESSION: No active disease.
[2017-11-25 11:53] LABS: BASO # 0.1 K/uL (0.0-0.2); BASO % 0.5 % (0.0-2.0); EOS # 0.4 K/uL (0.0-0.7); EOS % 3.4 % (0.0-4.0); HEMOGLOBIN 8.5 g/dL (11.0-16.0); LYMPH # 2.8 K/uL (1.0-4.3); LYMPH % 22.8 % (20.0-40.0); MEAN CELL VOLUME 86.3 fL (81.0-99.0); MEAN CORPUSCULAR HEMOGLOBIN 28.1 pg (27.0-31.0); MEAN CORPUSCULAR HGB CONC 32.6 g/dL (33.0-37.0); MEAN PLATELET VOLUME 7.6 fL (7.2-11.7); MONO # 0.9 K/uL (0.0-0.8); NEUT # 8.3 K/uL (1.8-7.0); NEUT % 66.3 % (50.0-75.0); RBC 3.01 Mil/uL (3.80-5.20); RED CELL DISTRIBUTION WIDTH 14.5 % (11.5-14.5); WHITE BLOOD COUNT 12.5 K/uL (4.8-10.8)
--- NOTE | 2017-11-25 12:05 | MRI ---
MRI right forefoot HISTORY: Wound. Evaluate for osteomyelitis. COMPARISON: None available. TECHNIQUE: Multi-echo multiplanar sequences were performed through the right forefoot without and with the use of intravenous contrast. Findings: Prominent enhancing soft tissue/abscess seen at the level of 1st distal phalanx measuring up to 1.6 x 1.8 centimeters extending to the 1st interphalangeal joint space. Prominent signal abnormality seen within the 1st proximal and distal phalanges with decreased T1 signal and increased STIR signal suggestive for acute osteomyelitis. Patchy signal abnormality noted at the 1st metatarsal head laterally with decreased T1 signal increased STIR signal which may represent prominent osteochondral change however superimposed acute infectious and or inflammatory changes cannot be excluded. Focal signal abnormality seen within the medial sesamoid bone with patchy decreased T1 signal and increased STIR signal which may represent the sequelae of osteochondral change however acute infectious and or inflammatory changes cannot be excluded. Clinical correlation. Mild increased signal at the level of the Lisfranc ligament which may represent a low grade sprain. Scattered areas of increased STIR signal seen at the base of the 2nd metatarsal bone, middle cuneiform, and lateral cuneiform with patchy decreased T1 signal. This may be the sequelae of osteochondral and or degenerative change; however, superimposed acute infectious and inflammatory changes cannot be excluded. Clinical correlation. Impression: Prominent enhancing soft tissue/abscess seen at the level of 1st distal phalanx measuring up to 1.6 x 1.8 centimeters extending to the 1st interphalangeal joint space. Prominent signal abnormality seen within the 1st proximal and distal phalanges with decreased T1 signal and increased STIR signal suggestive for acute osteomyelitis. Patchy signal abnormality noted at the 1st metatarsal head laterally with decreased T1 signal increased STIR signal which may represent prominent osteochondral change however superimposed acute infectious and or inflammatory changes cannot be excluded. Focal signal abnormality seen within the medial sesamoid bone with patchy decreased T1 signal and increased STIR signal which may represent the sequelae of osteochondral change however acute infectious and or inflammatory changes cannot be excluded. Clinical correlation. Mild increased signal at the level of the Lisfranc ligament which may represent a low grade sprain. Scattered areas of increased STIR signal seen at the base of the 2nd metatarsal bone, middle cuneiform, and lateral cuneiform with patchy decreased T1 signal. This may be the sequelae of osteochondral and or degenerative change; however, superimposed acute infectious and inflammatory changes cannot be excluded. Clinical correlation. These findings were preliminarily reported at 5:30 p.m. on 11/24/[address] Kwame Garduno from [facility].
--- NOTE | 2017-11-25 12:05 | CP.PCM.PN ---
Subjective - Date & Time of Evaluation Date of Evaluation: 11/25/17 Time of Evaluation: 12:03 - Subjective Subjective: Podiatry Progress Note: Dr. Conn 66 year old female patient was evaluated at bedside with attending Dr. Conn for right toe pain and swelling. Patient denies of having any acute overnight events. Appears AAOx3 and in NAD. Denies of any pain today. Denies of having F/N /V/C/SOB/CP/headache. No other pedal complains. Objective - Vital Signs/Intake and Output Vital Signs (last 24 hours): Temp Pulse Resp BP Pulse Ox 99.0 F 72 20 123/67 98 11/25/17 07:40 11/25/17 07:40 11/25/17 07:40 11/25/17 07:40 11/25/17 07:40 Intake and Output: 11/25/17 11/25/17 06:59 18:59 Intake Total 350 300 Balance 350 300 - Medications Medications: Current Medications Amlodipine Besylate (Norvasc) 10 mg PO DAILY [facility] Last Admin: 11/25/17 09:57 Dose: 10 mg Dextrose (Dextrose 50% Inj) 0 ml IV STAT PRN; Protocol PRN Reason: Hypoglycemia Protocol Dextrose (Glutose 15) 0 gm PO ONCE PRN; Protocol PRN Reason: Hypoglycemia Protocol Glucagon (Glucagen Diagnostic Kit) 0 mg IM STAT PRN; Protocol PRN Reason: Hypoglycemia Protocol Heparin Sodium (Porcine) (Heparin) 5,000 units SC Q8 [facility] Last Admin: 11/25/17 06:10 Dose: 5,000 units Piperacillin Sod/Tazobactam Sod (Zosyn 3.375 Gm Iv Premix) 3.375 gm in 50 mls @ 100 mls/hr IVPB Q8 [facility] PRN Reason: Protocol Last Admin: 11/25/17 05:22 Dose: 100 mls/hr Dextrose (Dextrose 5% In Water 1000 Ml) 1,000 mls @ 0 mls/hr IV .Q0M PRN; Protocol; Per Protocol PRN Reason: Hypoglycemia Protocol Insulin Human Regular (Novolin R) 0 unit SC ACHS [facility] PRN Reason: Protocol Last Admin: 11/25/17 08:08 Dose: Not Given Levothyroxine Sodium (Synthroid) 75 mcg PO DAILY@0630 [facility] Last Admin: 11/25/17 07:08 Dose: 75 mcg Lisinopril (Zestril) 2.5 mg PO DAILY [facility] Last Admin: 11/25/17 09:57 Dose: 2.5 mg Metformin HCl (Glucophage) 1,000 mg PO BID [facility] Last Admin: 11/25/17 09:57 Dose: 1,000 mg Pneumococcal Polyvalent Vaccine (Pneumovax 23 Vaccine) 0.5 ml IM .ONCE ONE Stop: 11/26/17 10:01 Rosuvastatin Calcium (Crestor) 5 mg PO HS [facility] Last Admin: 11/24/17 22:21 Dose: 5 mg - Labs Labs: 11/25/17 11:40 11/25/17 07:04 - Constitutional Appears: Well, Non-toxic, No Acute Distress - Extremities Exam Additional comments: Bilateral LE exam VASC: DP/PT pulses are palpable 2/4, Cap refill time: < 3 sec to all digits, Temp gradient: warm to cool from proximal to distal, localized non-pitting edema noted on the right hallux DERM: Wound present on the plantar medial aspect of the right hallux measuring approx 2 cm x 1 cm x 0.5 cm, wound bed is nacro (20%)-fibro (40%)-grannular (40% ) with mild serous drainage, wally-wound edges are hyperkeratotic with diffuse maceration noted, small wound measuring approx 0.5 cm x 0.5 cm x 0.2 cm on the dorso-medial aspect of the hallux which appears to have a sinus tract with the plantar wound, minimal fluctuance noted on the dorsal hallux, minimal wally- wound erythema, malodor present, + probe to bone; epidermal lysis of the right foot 2nd digit on the distal aspect noted with surrounding erythema NEURO: Protective sensation mildly diminished ORTHO: pain on palpation of the hallux, no pain during AROM or PROM of the right hallux - Neurological Exam Neurological Exam: Alert, Awake, Oriented x3 - Psychiatric Exam Psychiatric exam: Normal Affect, Normal Mood Assessment and Plan - Assessment and Plan (Free Text) Assessment: 66 year old female evaluated for 1). infected right plantar hallux wound with possible OM (Patel 3) 2) right 2nd digit wound Plan: Patient seen and evaluated with attending Dr. Conn Labs, vitals and charts reviewed - elevated WBC, ESR X-rays of the foot ordered - Cortical teto erosion with periosteal teto reaction consistent with OM MRI ordered - Increase in signal intensity of the distal and proximal phalanx of the right hallux on a T2 image consistent with OM, official read pending Right hallux wound cultures - pending Wound cleaned with saline and dressing applied using betadine, DSD ID consult - recs appreciated IDALIA/PVR ordered - pending Podiatry plans for POSSIBLE amputation following ID rec Will continue to monitor patient closely while in-house
--- NOTE | 2017-11-25 12:08 | CP.PCM.CON ---
History of Present Illness - History of Present Illness History of Present Illness: 66 year old female patient with PMHx of HTN, and diabetes was seen and evaluated at bedside in ED for right toe pain and swelling. Patient reports that she has had an ulcer on the right big toe for a long time but believes it started getting worst after wearing the tight shoes. admitted for IV antibiotics and wound care PMHx: HTN, diabetes PSHx: Appendectomy SHx: Denies tobacco, ETOH, or drug use Allergies: NKDA Review of Systems - Review of Systems All systems: reviewed and no additional remarkable complaints except Past Patient History - Infectious Disease Hx of Infectious Diseases: None - Past Medical History & Family History Past Medical History?: Yes - Past Social History Smoking Status: Never Smoked - CARDIAC Hx Hypertension: Yes - PULMONARY Hx Respiratory Disorders: No - NEUROLOGICAL Hx Neurological Disorder: No - HEENT Hx HEENT Problems: No - RENAL Hx Chronic Kidney Disease: No - ENDOCRINE/METABOLIC Hx Hypothyroidism: Yes - HEMATOLOGICAL/ONCOLOGICAL Hx Blood Transfusions: No - INTEGUMENTARY Other/Comment: right big toe dry wound - MUSCULOSKELETAL/RHEUMATOLOGICAL Hx Falls: No - GASTROINTESTINAL Hx Gastrointestinal Disorders: No - GENITOURINARY/GYNECOLOGICAL Hx Genitourinary Disorders: No - PSYCHIATRIC Hx Substance Use: No - SURGICAL HISTORY Hx Appendectomy: Yes - ANESTHESIA Hx Anesthesia: Yes Hx Anesthesia Reactions: No Meds Allergies/Adverse Reactions: Allergies Allergy/AdvReac Type Severity Reaction Status Date / Time No Known Allergies Allergy Verified 02/14/17 08:16 - Medications Medications: Current Medications Amlodipine Besylate (Norvasc) 10 mg PO DAILY [facility] Last Admin: 11/25/17 09:57 Dose: 10 mg Dextrose (Dextrose 50% Inj) 0 ml IV STAT PRN; Protocol PRN Reason: Hypoglycemia Protocol Dextrose (Glutose 15) 0 gm PO ONCE PRN; Protocol PRN Reason: Hypoglycemia Protocol Glucagon (Glucagen Diagnostic Kit) 0 mg IM STAT PRN; Protocol PRN Reason: Hypoglycemia Protocol Heparin Sodium (Porcine) (Heparin) 5,000 units SC Q8 [facility] Last Admin: 11/25/17 06:10 Dose: 5,000 units Piperacillin Sod/Tazobactam Sod (Zosyn 3.375 Gm Iv Premix) 3.375 gm in 50 mls @ 100 mls/hr IVPB Q8 [facility] PRN Reason: Protocol Last Admin: 11/25/17 05:22 Dose: 100 mls/hr Dextrose (Dextrose 5% In Water 1000 Ml) 1,000 mls @ 0 mls/hr IV .Q0M PRN; Protocol; Per Protocol PRN Reason: Hypoglycemia Protocol Insulin Human Regular (Novolin R) 0 unit SC ACHS [facility] PRN Reason: Protocol Last Admin: 11/25/17 08:08 Dose: Not Given Levothyroxine Sodium (Synthroid) 75 mcg PO DAILY@0630 [facility] Last Admin: 11/25/17 07:08 Dose: 75 mcg Lisinopril (Zestril) 2.5 mg PO DAILY [facility] Last Admin: 11/25/17 09:57 Dose: 2.5 mg Metformin HCl (Glucophage) 1,000 mg PO BID [facility] Last Admin: 11/25/17 09:57 Dose: 1,000 mg Pneumococcal Polyvalent Vaccine (Pneumovax 23 Vaccine) 0.5 ml IM .ONCE ONE Stop: 11/26/17 10:01 Rosuvastatin Calcium (Crestor) 5 mg PO [facility] Last Admin: 11/24/17 22:21 Dose: 5 mg Physical Exam - Constitutional Appears: Chronically Ill - Head Exam Head Exam: ATRAUMATIC - Eye Exam Eye Exam: absent: Scleral icterus - ENT Exam ENT Exam: Mucous Membranes Dry, Normal Oropharynx - Neck Exam Neck exam: Negative for: Lymphadenopathy - Respiratory Exam Respiratory Exam: Decreased Breath Sounds - Cardiovascular Exam Cardiovascular Exam: REGULAR RHYTHM - GI/Abdominal Exam GI & Abdominal Exam: Diminished Bowel Sounds, Soft. absent: Tenderness - Rectal Exam Rectal Exam: Deferred - Exam Exam: NORMAL INSPECTION - Extremities Exam Extremities exam: Positive for: pedal edema, tenderness. Negative for: calf tenderness Additional comments: Bilateral LE exam VASC: DP/PT pulses are palpable 2/4, Cap refill time: < 3 sec to all digits, Temp gradient: warm to cool from proximal to distal, localized non-pitting edema noted on the right hallux DERM: Wound present on the plantar medial aspect of the right hallux measuring approx 2 cm x 1 cm x 0.5 cm, wound bed is nacro (20%)-fibro (40%)-grannular (40% ) with mild serous drainage, wally-wound edges are hyperkeratotic with diffuse maceration noted, small wound measuring approx 0.5 cm x 0.5 cm x 0.2 cm on the dorso-medial aspect of the hallux which appears to have a sinus tract with the plantar wound, minimal fluctuance noted on the dorsal hallux, minimal wally- wound erythema, malodor present, + probe to bone; epidermal lysis of the right foot 2nd digit on the distal aspect noted with surrounding erythema NEURO: Protective sensation mildly diminished ORTHO: pain on palpation of the hallux, no pain during AROM or PROM of the right hallux - Back Exam Back exam: absent: CVA tenderness (L), CVA tenderness (R) - Neurological Exam Neurological exam: Alert, CN II-XII Intact, Oriented x3, Reflexes Normal - Psychiatric Exam Psychiatric exam: Normal Mood - Skin Skin Exam: Dry Results - Vital Signs Recent Vital Signs: Last Vital Signs Temp 99.0 F 11/25/17 07:40 Pulse 72 11/25/17 07:40 Resp 20 11/25/17 07:40 BP 123/67 11/25/17 07:40 Pulse Ox 98 11/25/17 07:40 - Labs Result Diagrams: 11/25/17 11:40 11/25/17 07:04 Labs: Laboratory Results - last 24 hr 11/24/17 11/24/17 11/24/17 10:37 17:16 19:46 WBC RBC Hgb Hct MCV MCH MCHC RDW Plt Count MPV Neut % (Auto) Lymph % (Auto) [place] % (Auto) Eos % (Auto) Baso % (Auto) Neut # (Auto) Lymph # (Auto) [place] # (Auto) Eos # (Auto) Baso # (Auto) ESR 129 H Sodium Potassium Chloride Carbon Dioxide Anion Gap BUN Creatinine Est GFR ( Amer) Est GFR (Non-Af Amer) POC Glucose (mg/dL) 145 H Random Glucose Hemoglobin A1c 7.6 H Calcium Phosphorus Magnesium Total Bilirubin AST ALT Alkaline Phosphatase Total Protein Albumin Globulin Albumin/Globulin Ratio Blood Type Antibody Screen 11/24/17 11/24/17 11/25/17 19:46 21:11 07:04 WBC RBC Hgb Hct MCV MCH MCHC RDW Plt Count MPV Neut % (Auto) Lymph % (Auto) [place] % (Auto) Eos % (Auto) Baso % (Auto) Neut # (Auto) Lymph # (Auto) [place] # (Auto) Eos # (Auto) Baso # (Auto) ESR Sodium 138 Potassium 6.1 H Chloride 108 H Carbon Dioxide 20 L Anion Gap 16 BUN 26 H Creatinine 1.1 Est GFR ( Amer) > 60 Est GFR (Non-Af Amer) 50 POC Glucose (mg/dL) 137 H Random Glucose 129 H Hemoglobin A1c Calcium 8.8 Phosphorus 4.7 H Magnesium 1.8 Total Bilirubin 0.6 AST 44 H D ALT 29 Alkaline Phosphatase 214 H Total Protein 7.4 Albumin 3.3 L Globulin 4.1 H Albumin/Globulin Ratio 0.8 L Blood Type O POSITIVE Antibody Screen Negative 11/25/17 11/25/17 11/25/17 07:09 11:22 11:40 WBC 12.5 H RBC 3.01 L Hgb 8.5 L Hct 26.0 L MCV 86.3 MCH 28.1 MCHC 32.6 L RDW 14.5 Plt Count 469 H MPV 7.6 Neut % (Auto) 66.3 Lymph % (Auto) 22.8 [place] % (Auto) 7.0 Eos % (Auto) 3.4 Baso % (Auto) 0.5 Neut # (Auto) 8.3 H Lymph # (Auto) 2.8 [place] # (Auto) 0.9 H Eos # (Auto) 0.4 Baso # (Auto) 0.1 ESR Sodium Potassium Chloride Carbon Dioxide Anion Gap BUN Creatinine Est GFR ( Amer) Est GFR (Non-Af Amer) POC Glucose (mg/dL) 136 H 138 H Random Glucose Hemoglobin A1c Calcium Phosphorus Magnesium Total Bilirubin AST ALT Alkaline Phosphatase Total Protein Albumin Globulin Albumin/Globulin Ratio Blood Type Antibody Screen Assessment & Plan - Assessment and Plan (Free Text) Assessment: 66 yo diabetic with chroni wound rigt foot- likley OM may need debridement and or amputation recc vascular studies, MRI, cultures wound care IV rx initiated
[2017-11-25 12:15] LABS: ALB/GLOB RATIO 0.9 (1.0-2.1); ALBUMIN 3.4 g/dL (3.5-5.0); CALCIUM 9.1 mg/dl (8.6-10.4)
[2017-11-25] MEDS ORDERED: Sod Polystyrene Sulf 15 gm/60 ml Susp PO ONE (13:45)
--- NOTE | 2017-11-25 16:21 | CP.PCM.PN ---
<Adan Rodriguez - Last Filed: 11/25/17 16:15> Subjective - Date & Time of Evaluation Date of Evaluation: 11/25/17 Time of Evaluation: 16:15 - Subjective Subjective: PGY-[address] Gupta Patient seen and examined at bedside. No acute events overnight. Patient slept well overnight and is tolerating PO meals. Patient has no complaints other than pain in her R toe/foot at the site of her wound. Patient denies any fevers, chills, chest pain, dizziness, palpitations. Objective - Vital Signs/Intake and Output Vital Signs (last 24 hours): Temp Pulse Resp BP Pulse Ox 99.0 F 72 20 123/67 98 11/25/17 07:40 11/25/17 07:40 11/25/17 07:40 11/25/17 07:40 11/25/17 07:40 Intake and Output: 11/25/17 11/25/17 06:59 18:59 Intake Total 350 850 Balance 350 850 - Medications Medications: Current Medications Amlodipine Besylate (Norvasc) 10 mg PO DAILY [facility] Last Admin: 11/25/17 09:57 Dose: 10 mg Dextrose (Dextrose 50% Inj) 0 ml IV STAT PRN; Protocol PRN Reason: Hypoglycemia Protocol Dextrose (Glutose 15) 0 gm PO ONCE PRN; Protocol PRN Reason: Hypoglycemia Protocol Glucagon (Glucagen Diagnostic Kit) 0 mg IM STAT PRN; Protocol PRN Reason: Hypoglycemia Protocol Heparin Sodium (Porcine) (Heparin) 5,000 units SC Q8 [facility] Last Admin: 11/25/17 14:15 Dose: 5,000 units Piperacillin Sod/Tazobactam Sod (Zosyn 3.375 Gm Iv Premix) 3.375 gm in 50 mls @ 100 mls/hr IVPB Q8 [facility] PRN Reason: Protocol Last Admin: 11/25/17 14:15 Dose: 100 mls/hr Dextrose (Dextrose 5% In Water 1000 Ml) 1,000 mls @ 0 mls/hr IV .Q0M PRN; Protocol; Per Protocol PRN Reason: Hypoglycemia Protocol Insulin Human Regular (Novolin R) 0 unit SC ACHS [facility] PRN Reason: Protocol Last Admin: 11/25/17 12:30 Dose: Not Given Levothyroxine Sodium (Synthroid) 75 mcg PO DAILY@0630 [facility] Lisinopril (Zestril) 2.5 mg PO DAILY [facility] Last Admin: 11/25/17 09:57 Dose: 2.5 mg Metformin HCl (Glucophage) 1,000 mg PO BID [facility] Last Admin: 11/25/17 09:57 Dose: 1,000 mg Pneumococcal Polyvalent Vaccine (Pneumovax 23 Vaccine) 0.5 ml IM .ONCE ONE Stop: 11/26/17 10:01 Rosuvastatin Calcium (Crestor) 5 mg PO [facility] Last Admin: 11/24/17 22:21 Dose: 5 mg - Labs Labs: 11/25/17 11:40 11/25/17 11:40 - Head Exam Head Exam: ATRAUMATIC, NORMAL INSPECTION - Eye Exam Eye Exam: EOMI, Normal appearance Pupil Exam: NORMAL ACCOMODATION - ENT Exam ENT Exam: Mucous Membranes Moist, Normal Exam - Respiratory Exam Respiratory Exam: NORMAL BREATHING PATTERN. absent: Rales, Rhonchi, Wheezes - Cardiovascular Exam Cardiovascular Exam: REGULAR RHYTHM, +S1, +S2 - GI/Abdominal Exam GI & Abdominal Exam: Soft, Normal Bowel Sounds. absent: Tenderness - Extremities Exam Additional comments: Dressing left in place on R foot on exam today. Dressings are dry and intact. DP and PT pulses intact b/l. Per exam yesterday: "Wound present on the plantar medial aspect of the right hallux: 2 cm x 1 cm x 0.5 cm wound bed is nacro (20%)-fibro (40%)-grannular (40%) with mild serous drainage, wally-wound edges are hyperkeratotic with diffuse maceration noted small wound: ~0.5 cm x 0.5 cm x 0.2 cm on the dorso-medial aspect of the hallux which appears to have a sinus tract with the plantar wound minimal fluctuance noted on the dorsal hallux, minimal wally-wound erythema, malodorous, + probe to bone epidermal lysis of the right foot 2nd digit on the distal aspect noted with surrounding erythema" - Neurological Exam Neurological Exam: Alert, Awake, CN II-XII Intact - Psychiatric Exam Psychiatric exam: Normal Affect, Normal Mood - Skin Skin Exam: Dry, Intact, Normal Color Additional comments: R toe PE - see above Assessment and Plan - Assessment and Plan (Free Text) Assessment: Osteomyelitis R hallux -R hallux warm to touch, TTP, swollen, erythematous, + probe to bone -WBC 12.5, down from 14.1 -ESR 129 -Podiatry (Dr. Conn) recs appreciated -XR foot: Cortical teto erosion with periosteal teto reaction consistent with OM -MRI foot (11/24/17) - Summary, see full report for details: Soft tissue/ abcess seen at level of 1st distal phalanx 1.6x1.8 cm - increased STIR signal suggestive of osteomyelitis. Focal signal abnormality seen within the medial sesamoid bone - infections/inflammatory changes cannot be excluded. Possible low grade sprain of Lisfranc ligament. 2nd metatarsal, middle cuneiform, and lateral cuneiform - probable degenerative change, however superimposed acute infection cannot be excluded. -Right hallux wound cultures taken - pending -IDALIA/PVR ordered - pending -Wound cleaned with saline and dressing applied using betadine, DSD -Pt to OR for toe amputation ---EKG for pre-op screen -CXR (11/24): No active disease -f/u ID (Dr. Johnson) recs -Continue Zosyn, await cultures, follow up after pt goes for amputation on Medications: -Zosyn 3.375 mg IVPB q8H per ID -home ASA 81 mg PO daily held in preparation for possible surgery, per Dr. Gupta DM -random glucose 158 -HbA1C 7.6 -ISS -hypoglycemic protocol -continue home medication: -Metformin 1000 mg PO BID HTN -continue home meds: -Norvasc 10 mg PO daily -Lisinopril 2.5 mg PO daily Hx of Hypothyroidism -continue home med: -Synthroid 75 mcg PO daily PPx, Diet, Disposition -DVT ppx: heparin 5000 Units sc q8 -diabetic diet Case discussed with Dr. Candy Rodriguez DO, PGY-1 <Maurisio Gupta - Last Filed: 11/25/17 17:25> Objective - Vital Signs/Intake and Output Vital Signs (last 24 hours): Temp Pulse Resp BP Pulse Ox 99.6 F 87 20 133/60 98 11/25/17 16:49 11/25/17 16:49 11/25/17 16:49 11/25/17 16:49 11/25/17 16:49 Intake and Output: 11/25/17 11/25/17 06:59 18:59 Intake Total 350 850 Balance 350 850 - Medications Medications: Current Medications Amlodipine Besylate (Norvasc) 10 mg PO DAILY [facility] Last Admin: 11/25/17 09:57 Dose: 10 mg Dextrose (Dextrose 50% Inj) 0 ml IV STAT PRN; Protocol PRN Reason: Hypoglycemia Protocol Dextrose (Glutose 15) 0 gm PO ONCE PRN; Protocol PRN Reason: Hypoglycemia Protocol Glucagon (Glucagen Diagnostic Kit) 0 mg IM STAT PRN; Protocol PRN Reason: Hypoglycemia Protocol Heparin Sodium (Porcine) (Heparin) 5,000 units SC Q8 [facility] Last Admin: 11/25/17 14:15 Dose: 5,000 units Piperacillin Sod/Tazobactam Sod (Zosyn 3.375 Gm Iv Premix) 3.375 gm in 50 mls @ 100 mls/hr IVPB Q8 [facility] PRN Reason: Protocol Last Admin: 11/25/17 14:15 Dose: 100 mls/hr Dextrose (Dextrose 5% In Water 1000 Ml) 1,000 mls @ 0 mls/hr IV .Q0M PRN; Protocol; Per Protocol PRN Reason: Hypoglycemia Protocol Insulin Human Regular (Novolin R) 0 unit SC ACHS [facility] PRN Reason: Protocol Last Admin: 11/25/17 12:30 Dose: Not Given Levothyroxine Sodium (Synthroid) 75 mcg PO DAILY@0630 [facility] Lisinopril (Zestril) 2.5 mg PO DAILY [facility] Last Admin: 11/25/17 09:57 Dose: 2.5 mg Metformin HCl (Glucophage) 1,000 mg PO BID [facility] Last Admin: 11/25/17 09:57 Dose: 1,000 mg Pneumococcal Polyvalent Vaccine (Pneumovax 23 Vaccine) 0.5 ml IM .ONCE ONE Stop: 11/26/17 10:01 Rosuvastatin Calcium (Crestor) 5 mg PO HS [facility] Last Admin: 11/24/17 22:21 Dose: 5 mg - Labs Labs: 11/25/17 11:40 11/25/17 11:40 Attending/Attestation - Attestation I have personally seen and examined this patient.: Yes I have fully participated in the care of the patient.: Yes I have reviewed all pertinent clinical information, including history, physical exam and plan: Yes Notes (Text): 11/25/17 17:25 Medical consult: Patient was seen and examined by me during rounds with the internist medical doctor md, agree with the the above note by the internist medical doctor md. As reported above the medical residents note, MRI from yesterday returned showing that she does have osteomyelitis. Per discussion with by podiatry the try to see if they could do this on and amputation of that toe. In the meantime she remains on IV antibiotics. Will try Cipro get a PICC line in tomorrow on Friday. For now will order a chest x-ray, EKG, type and screen in preparation Thank you very much Maurisio Gupta
--- NOTE | 2017-11-25 16:53 | RAD ---
Date of service: 11/25/2017 HISTORY: Pre-op screen COMPARISON: 11/24/2017 FINDINGS: LUNGS: No active pulmonary disease. PLEURA: No significant pleural effusion identified, no pneumothorax apparent. CARDIOVASCULAR: Normal. OSSEOUS STRUCTURES: No significant abnormalities. Incidental thoracic spondylosis noted VISUALIZED UPPER ABDOMEN: Normal. OTHER FINDINGS: None. IMPRESSION: No active disease.
--- NOTE | 2017-11-25 20:22 | CP.PCM.PN ---
Subjective - Date & Time of Evaluation Date of Evaluation: 11/25/17 Time of Evaluation: 20:21 - Subjective Subjective: patient seen on rounds this am . Mri reviewed and hallux examined Objective - Vital Signs/Intake and Output Vital Signs (last 24 hours): Temp Pulse Resp BP Pulse Ox 99.6 F 87 20 133/60 98 11/25/17 16:49 11/25/17 16:49 11/25/17 16:49 11/25/17 16:49 11/25/17 16:49 Intake and Output: 11/25/17 11/26/17 18:59 06:59 Intake Total 850 Balance 850 - Medications Medications: Current Medications Amlodipine Besylate (Norvasc) 10 mg PO DAILY [facility] Last Admin: 11/25/17 09:57 Dose: 10 mg Dextrose (Dextrose 50% Inj) 0 ml IV STAT PRN; Protocol PRN Reason: Hypoglycemia Protocol Dextrose (Glutose 15) 0 gm PO ONCE PRN; Protocol PRN Reason: Hypoglycemia Protocol Glucagon (Glucagen Diagnostic Kit) 0 mg IM STAT PRN; Protocol PRN Reason: Hypoglycemia Protocol Heparin Sodium (Porcine) (Heparin) 5,000 units SC Q8 [facility] Last Admin: 11/25/17 14:15 Dose: 5,000 units Piperacillin Sod/Tazobactam Sod (Zosyn 3.375 Gm Iv Premix) 3.375 gm in 50 mls @ 100 mls/hr IVPB Q8 [facility] PRN Reason: Protocol Last Admin: 11/25/17 14:15 Dose: 100 mls/hr Dextrose (Dextrose 5% In Water 1000 Ml) 1,000 mls @ 0 mls/hr IV .Q0M PRN; Protocol; Per Protocol PRN Reason: Hypoglycemia Protocol Insulin Human Regular (Novolin R) 0 unit SC ACHS [facility] PRN Reason: Protocol Last Admin: 11/25/17 17:28 Dose: Not Given Levothyroxine Sodium (Synthroid) 75 mcg PO DAILY@0630 [facility] Lisinopril (Zestril) 2.5 mg PO DAILY [facility] Last Admin: 11/25/17 09:57 Dose: 2.5 mg Metformin HCl (Glucophage) 1,000 mg PO BID [facility] Last Admin: 11/25/17 17:28 Dose: 1,000 mg Pneumococcal Polyvalent Vaccine (Pneumovax 23 Vaccine) 0.5 ml IM .ONCE ONE Stop: 11/26/17 10:01 Rosuvastatin Calcium (Crestor) 5 mg PO HS [facility] Last Admin: 11/24/17 22:21 Dose: 5 mg - Labs Labs: 11/25/17 11:40 11/25/17 11:40
[2017-11-26] MEDS: Piperacill/Tazo 3.375gm in Dex 3.375 GM/50 ML BAG IVPB SCH ×3 (05:53→21:45)
[2017-11-26] MEDS: Levothyroxine 75 MCG TAB PO SCH (05:54)
[2017-11-26 07:50] LABS: BASO # 0.1 K/uL (0.0-0.2); BASO % 0.8 % (0.0-2.0); EOS # 0.4 K/uL (0.0-0.7); EOS % 3.2 % (0.0-4.0); HEMOGLOBIN 8.8 g/dL (11.0-16.0); LYMPH # 2.6 K/uL (1.0-4.3); LYMPH % 22.7 % (20.0-40.0); MEAN CELL VOLUME 85.8 fL (81.0-99.0); MEAN CORPUSCULAR HEMOGLOBIN 28.6 pg (27.0-31.0); MEAN CORPUSCULAR HGB CONC 33.3 g/dL (33.0-37.0); MEAN PLATELET VOLUME 7.5 fL (7.2-11.7); MONO # 0.8 K/uL (0.0-0.8); MONO % 6.6 % (0.0-10.0); NEUT # 7.6 K/uL (1.8-7.0); NEUT % 66.7 % (50.0-75.0); RBC 3.07 Mil/uL (3.80-5.20); RED CELL DISTRIBUTION WIDTH 14.4 % (11.5-14.5); WHITE BLOOD COUNT 11.5 K/uL (4.8-10.8)
[2017-11-26 08:10] LABS: ALB/GLOB RATIO 0.8 (1.0-2.1); ALBUMIN 3.4 g/dL (3.5-5.0); ALT/SGPT 29 U/L (9-52); AST/SGOT 20 U/L (14-36); BLOOD UREA NITROGEN 19 mg/dL (7-17); CALCIUM 9.2 mg/dl (8.6-10.4); GFR NON-AFRICAN AMERICAN 56
[2017-11-26] MEDS: (Novolin R) Insulin Human Regular 100 units/ml vial SC SCH ×4 (09:00→21:44)
[2017-11-26] MEDS ORDERED: Pneumococcal 23-Valent Vaccine IM ONE ×2 (10:00→11:15)
--- NOTE | 2017-11-26 10:26 | CP.PCM.PN ---
Subjective - Date & Time of Evaluation Date of Evaluation: 11/26/17 Time of Evaluation: 10:24 - Subjective Subjective: Podiatry Progress Note: Dr. Conn 66 year old female patient was evaluated at bedside for right toe pain and swelling. Patient denies of having any acute overnight events. Reports that she has pain to the big toe but she is tolerating it well with medication. Appears AAOx3 and in NAD. Denies of having F/N/V/C/SOB/CP/headache. No other pedal complains. Objective - Vital Signs/Intake and Output Vital Signs (last 24 hours): Temp Pulse Resp BP Pulse Ox 99.3 F 67 20 133/62 97 11/26/17 08:17 11/26/17 08:17 11/26/17 08:17 11/26/17 08:17 11/26/17 08:17 Intake and Output: 11/26/17 11/26/17 06:59 18:59 Intake Total 300 300 Balance 300 300 - Medications Medications: Current Medications Amlodipine Besylate (Norvasc) 10 mg PO DAILY [facility] Last Admin: 11/26/17 09:06 Dose: 10 mg Dextrose (Dextrose 50% Inj) 0 ml IV STAT PRN; Protocol PRN Reason: Hypoglycemia Protocol Dextrose (Glutose 15) 0 gm PO ONCE PRN; Protocol PRN Reason: Hypoglycemia Protocol Glucagon (Glucagen Diagnostic Kit) 0 mg IM STAT PRN; Protocol PRN Reason: Hypoglycemia Protocol Heparin Sodium (Porcine) (Heparin) 5,000 units SC Q8 [facility] Last Admin: 11/26/17 05:54 Dose: 5,000 units Piperacillin Sod/Tazobactam Sod (Zosyn 3.375 Gm Iv Premix) 3.375 gm in 50 mls @ 100 mls/hr IVPB Q8 [facility] PRN Reason: Protocol Last Admin: 11/26/17 05:53 Dose: 100 mls/hr Dextrose (Dextrose 5% In Water 1000 Ml) 1,000 mls @ 0 mls/hr IV .Q0M PRN; Protocol; Per Protocol PRN Reason: Hypoglycemia Protocol Insulin Human Regular (Novolin R) 0 unit SC ACHS [facility] PRN Reason: Protocol Last Admin: 11/26/17 09:00 Dose: Not Given Levothyroxine Sodium (Synthroid) 75 mcg PO DAILY@0630 [facility] Last Admin: 11/26/17 05:54 Dose: 75 mcg Lisinopril (Zestril) 2.5 mg PO DAILY [facility] Last Admin: 11/26/17 09:06 Dose: 2.5 mg Metformin HCl (Glucophage) 1,000 mg PO BID [facility] Last Admin: 11/26/17 09:06 Dose: 1,000 mg Rosuvastatin Calcium (Crestor) 5 mg PO HS [facility] Last Admin: 11/25/17 21:38 Dose: 5 mg - Labs Labs: 11/26/17 07:35 11/26/17 07:35 - Constitutional Appears: Well, Non-toxic, No Acute Distress - Extremities Exam Additional comments: Bilateral LE exam VASC: DP/PT pulses are palpable 2/4, Cap refill time: < 3 sec to all digits, Temp gradient: warm to cool from proximal to distal, localized non-pitting edema noted on the right hallux DERM: Wound present on the plantar medial aspect of the right hallux measuring approx 2 cm x 1 cm x 0.5 cm, wound bed is nacro (20%)-fibro (40%)-grannular (40%) with mild serous drainage, wally-wound edges are hyperkeratotic with diffuse maceration noted, small wound measuring approx 0.5 cm x 0.5 cm x 0.2 cm on the dorso-medial aspect of the hallux which appears to have a sinus tract with the plantar wound, minimal fluctuance noted on the dorsal hallux, minimal wally-wound erythema, malodor present, + probe to bone; epidermal lysis of the right foot 2nd digit on the distal aspect noted with surrounding erythema NEURO: Protective sensation mildly diminished ORTHO: pain on palpation of the hallux, no pain during AROM or PROM of the right hallux - Neurological Exam Neurological Exam: Alert, Awake, Oriented x3 - Psychiatric Exam Psychiatric exam: Normal Affect, Normal Mood Assessment and Plan - Assessment and Plan (Free Text) Assessment: 66 year old female evaluated for 1). infected right plantar hallux wound with possible OM (Patel 3) 2) right 2nd digit wound Plan: Patient seen and evaluated Discussed plan with attending Dr. Conn Labs, vitals and charts reviewed - elevated WBC, ESR X-rays of the foot ordered - Cortical teto erosion with periosteal teto reaction consistent with OM MRI ordered - Increase in signal intensity of the distal and proximal phalanx of the right hallux on a T2 image consistent with OM Right hallux wound cultures - Jocelin Reyes Wound cleaned with saline and dressing applied using betadine, DSD ID consult - recs appreciated - continue IV abx as per ID IDALIA/PVR ordered - R:1.18, L:1.13 with good waveform to the metatarsal, official read pending Podiatry plans for right hallux amputation tomorrow morning at 7:45 am - Request medical optimization for the procedure - NPO starting midnight - AM labs - Hold Heparin Will continue to monitor patient closely while in-house
--- NOTE | 2017-11-26 16:36 | CP.PCM.PN ---
<Adan Rodriguez - Last Filed: 11/26/17 16:57> Subjective - Date & Time of Evaluation Date of Evaluation: 11/26/17 Time of Evaluation: 17:06 - Subjective Subjective: PGY-[address] Gupta Patient seen and examined at bedside. No acute events overnight. Patient to OR tomorrow for amputation of L hallux with podiatry (Dr. Conn). Pt kept NPO after midnight. At time of exam, patient was visibly upset and crying because of her upcoming amputation and coming to the realization that she would be losing her foot. I explained to the patient that this surgery is for the benefit of her own health, and that having her toe amputated is preventing the need or further amputation or sepsis. Patient verbalized that she understood that this was in her best interest, and her mood did appear to improve. Objective - Vital Signs/Intake and Output Vital Signs (last 24 hours): Temp Pulse Resp BP Pulse Ox 99.3 F 78 20 147/68 98 11/26/17 15:35 11/26/17 15:35 11/26/17 15:35 11/26/17 15:35 11/26/17 15:35 Intake and Output: 11/26/17 11/26/17 06:59 18:59 Intake Total 300 300 Balance 300 300 - Medications Medications: Current Medications Amlodipine Besylate (Norvasc) 10 mg PO DAILY [facility] Last Admin: 11/26/17 09:06 Dose: 10 mg Dextrose (Dextrose 50% Inj) 0 ml IV STAT PRN; Protocol PRN Reason: Hypoglycemia Protocol Dextrose (Glutose 15) 0 gm PO ONCE PRN; Protocol PRN Reason: Hypoglycemia Protocol Glucagon (Glucagen Diagnostic Kit) 0 mg IM STAT PRN; Protocol PRN Reason: Hypoglycemia Protocol Heparin Sodium (Porcine) (Heparin) 5,000 units SC Q8 [facility] Last Admin: 11/26/17 14:09 Dose: Not Given Piperacillin Sod/Tazobactam Sod (Zosyn 3.375 Gm Iv Premix) 3.375 gm in 50 mls @ 100 mls/hr IVPB Q8 [facility] PRN Reason: Protocol Last Admin: 11/26/17 14:06 Dose: 100 mls/hr Dextrose (Dextrose 5% In Water 1000 Ml) 1,000 mls @ 0 mls/hr IV .Q0M PRN; Protocol; Per Protocol PRN Reason: Hypoglycemia Protocol Insulin Human Regular (Novolin R) 0 unit SC ACHS [facility] PRN Reason: Protocol Last Admin: 11/26/17 12:01 Dose: Not Given Levothyroxine Sodium (Synthroid) 75 mcg PO DAILY@0630 [facility] Last Admin: 11/26/17 05:54 Dose: 75 mcg Lisinopril (Zestril) 2.5 mg PO DAILY [facility] Last Admin: 11/26/17 09:06 Dose: 2.5 mg Metformin HCl (Glucophage) 1,000 mg PO BID [facility] Last Admin: 11/26/17 09:06 Dose: 1,000 mg Rosuvastatin Calcium (Crestor) 5 mg PO HS [facility] Last Admin: 11/25/17 21:38 Dose: 5 mg - Labs Labs: 11/26/17 07:35 11/26/17 07:35 - Head Exam Head Exam: ATRAUMATIC, NORMAL INSPECTION, NORMOCEPHALIC - Eye Exam Eye Exam: EOMI, Normal appearance - Neck Exam Neck Exam: Full ROM, Normal Inspection. absent: Tenderness - Respiratory Exam Respiratory Exam: Clear to Ausculation Bilateral, NORMAL BREATHING PATTERN. absent: Rales, Rhonchi, Wheezes - Cardiovascular Exam Cardiovascular Exam: REGULAR RHYTHM, RRR, +S1, +S2. absent: JVD, Murmur - GI/Abdominal Exam GI & Abdominal Exam: Soft, Normal Bowel Sounds. absent: Tenderness - Extremities Exam Additional comments: Dressings newly re-applied by podiatry. Dressings on L foot CDI. Pain with palpation and flexion/extension L hallux- pain decreased from yesterday. - Neurological Exam Neurological Exam: Alert, Awake, CN II-XII Intact, Oriented x3 - Psychiatric Exam Psychiatric exam: Normal Affect - Skin Skin Exam: Dry, Intact, Normal Color, Warm Assessment and Plan - Assessment and Plan (Free Text) Assessment: Osteomyelitis R hallux -R hallux warm to touch, TTP, swollen, erythematous, + probe to bone -WBC 11.5 -continues to improve -ESR 129 -Podiatry (Dr. Conn) recs appreciated -Imaging: ---XR foot: Cortical teto erosion with periosteal teto reaction consistent with OM ---MRI foot (11/24/17) - Summary, see full report for details: Soft tissue/ abcess seen at level of 1st distal phalanx 1.6x1.8 cm - increased STIR signal suggestive of osteomyelitis. Focal signal abnormality seen within the medial sesamoid bone - infections/inflammatory changes cannot be excluded. Possible low grade sprain of Lisfranc ligament. 2nd metatarsal, middle cuneiform, and lateral cuneiform - probable degenerative change, however superimposed acute infection cannot be excluded. ---CXR (11/24): No active disease -Right hallux wound cultures: Ss Morganii, Sensitive to Meropenem (LUCIE <0.25) -IDALIA/PVR ordered - pending -Wound cleaned with saline and dressing applied using betadine, DSD -Pt to OR for toe amputation -f/u ID (Dr. Johnson) recs -Pt on Meropenem (day #5). PICC not indicated at this time. Pt requires one more full week of ABx (planned end 12/02). Pt to remain hospitalized while receving Meropenem. Medications: -Zosyn 3.375 mg IVPB q8H per ID -home ASA 81 mg PO daily held in preparation for possible surgery, per Dr. Gupta DM -random glucose 158 -HbA1C 7.6 -ISS -hypoglycemic protocol -continue home medication: -Metformin held as pt kept NPO after midnight. Restarting tomorrow afternoon. HTN -continue home meds: -Norvasc 10 mg PO daily -Lisinopril 2.5 mg PO daily Hyperkalemia -11/25 - K 5.5 -Kayexalate 30mg PO once -Resolved Hx of Hypothyroidism -continue home med: -Synthroid 75 mcg PO daily PPx, Diet, Disposition -DVT ppx: heparin 5000 Units sc q8 -diabetic diet Case discussed with Dr. Candy Rodriguez DO, PGY-1 <Maurisio Gupta H - Last Filed: 11/26/17 17:41> Objective - Vital Signs/Intake and Output Vital Signs (last 24 hours): Temp Pulse Resp BP Pulse Ox 99.3 F 78 20 147/68 98 11/26/17 15:35 11/26/17 15:35 11/26/17 15:35 11/26/17 15:35 11/26/17 15:35 Intake and Output: 11/26/17 11/26/17 06:59 18:59 Intake Total 300 550 Balance 300 550 - Medications Medications: Current Medications Amlodipine Besylate (Norvasc) 10 mg PO DAILY [facility] Last Admin: 11/26/17 09:06 Dose: 10 mg Dextrose (Dextrose 50% Inj) 0 ml IV STAT PRN; Protocol PRN Reason: Hypoglycemia Protocol Dextrose (Glutose 15) 0 gm PO ONCE PRN; Protocol PRN Reason: Hypoglycemia Protocol Glucagon (Glucagen Diagnostic Kit) 0 mg IM STAT PRN; Protocol PRN Reason: Hypoglycemia Protocol Heparin Sodium (Porcine) (Heparin) 5,000 units SC Q8 [facility] Last Admin: 11/26/17 14:09 Dose: Not Given Piperacillin Sod/Tazobactam Sod (Zosyn 3.375 Gm Iv Premix) 3.375 gm in 50 mls @ 100 mls/hr IVPB Q8 [facility] PRN Reason: Protocol Last Admin: 11/26/17 14:06 Dose: 100 mls/hr Dextrose (Dextrose 5% In Water 1000 Ml) 1,000 mls @ 0 mls/hr IV .Q0M PRN; Protocol; Per Protocol PRN Reason: Hypoglycemia Protocol Insulin Human Regular (Novolin R) 0 unit SC ACHS [facility] PRN Reason: Protocol Last Admin: 11/26/17 12:01 Dose: Not Given Levothyroxine Sodium (Synthroid) 75 mcg PO DAILY@0630 [facility] Last Admin: 11/26/17 05:54 Dose: 75 mcg Lisinopril (Zestril) 2.5 mg PO DAILY [facility] Last Admin: 11/26/17 09:06 Dose: 2.5 mg Metformin HCl (Glucophage) 1,000 mg PO BID [facility] Last Admin: 11/26/17 09:06 Dose: 1,000 mg Rosuvastatin Calcium (Crestor) 5 mg PO HS [facility] Last Admin: 11/25/17 21:38 Dose: 5 mg - Labs Labs: 11/26/17 07:35 11/26/17 16:26 Attending/Attestation - Attestation I have personally seen and examined this patient.: Yes I have fully participated in the care of the patient.: Yes I have reviewed all pertinent clinical information, including history, physical exam and plan: Yes Notes (Text): 11/26/17 17:41 Medical attending: Patient was seen and examined by me, agrees the above note by the medical policy specialist. Patient is currently be nothing by mouth after midnight, tomorrow for the OR to remove the great toe that's been affected by the osteomyelitis. The patient says that she understands the reason for the surgery. Thank you very much, Maurisio Gupta
[2017-11-26 16:47] LABS: BLOOD UREA NITROGEN 18 mg/dL (7-17); GFR NON-AFRICAN AMERICAN 56
--- NOTE | 2017-11-26 17:35 | CP.PCM.PN ---
Subjective - Date & Time of Evaluation Date of Evaluation: 11/26/17 Time of Evaluation: 08:00 - Subjective Subjective: cultures growing morganella iv rx renewed plan for amp of hallux Objective - Vital Signs/Intake and Output Vital Signs (last 24 hours): Temp Pulse Resp BP Pulse Ox 99.3 F 78 20 147/68 98 11/26/17 15:35 11/26/17 15:35 11/26/17 15:35 11/26/17 15:35 11/26/17 15:35 Intake and Output: 11/26/17 11/26/17 06:59 18:59 Intake Total 300 550 Balance 300 550 - Medications Medications: Current Medications Amlodipine Besylate (Norvasc) 10 mg PO DAILY [facility] Last Admin: 11/26/17 09:06 Dose: 10 mg Dextrose (Dextrose 50% Inj) 0 ml IV STAT PRN; Protocol PRN Reason: Hypoglycemia Protocol Dextrose (Glutose 15) 0 gm PO ONCE PRN; Protocol PRN Reason: Hypoglycemia Protocol Glucagon (Glucagen Diagnostic Kit) 0 mg IM STAT PRN; Protocol PRN Reason: Hypoglycemia Protocol Heparin Sodium (Porcine) (Heparin) 5,000 units SC Q8 [facility] Last Admin: 11/26/17 14:09 Dose: Not Given Piperacillin Sod/Tazobactam Sod (Zosyn 3.375 Gm Iv Premix) 3.375 gm in 50 mls @ 100 mls/hr IVPB Q8 [facility] PRN Reason: Protocol Last Admin: 11/26/17 14:06 Dose: 100 mls/hr Dextrose (Dextrose 5% In Water 1000 Ml) 1,000 mls @ 0 mls/hr IV .Q0M PRN; Protocol; Per Protocol PRN Reason: Hypoglycemia Protocol Insulin Human Regular (Novolin R) 0 unit SC ACHS [facility] PRN Reason: Protocol Last Admin: 11/26/17 12:01 Dose: Not Given Levothyroxine Sodium (Synthroid) 75 mcg PO DAILY@0630 [facility] Last Admin: 11/26/17 05:54 Dose: 75 mcg Lisinopril (Zestril) 2.5 mg PO DAILY [facility] Last Admin: 11/26/17 09:06 Dose: 2.5 mg Metformin HCl (Glucophage) 1,000 mg PO BID [facility] Last Admin: 11/26/17 09:06 Dose: 1,000 mg Rosuvastatin Calcium (Crestor) 5 mg PO HS [facility] Last Admin: 11/25/17 21:38 Dose: 5 mg - Labs Labs: 11/26/17 07:35 11/26/17 16:26 - Constitutional Appears: Non-toxic, Chronically Ill - Head Exam Head Exam: NORMOCEPHALIC - Eye Exam Eye Exam: PERRL - ENT Exam ENT Exam: Mucous Membranes Dry - Neck Exam Neck Exam: absent: Lymphadenopathy - Respiratory Exam Respiratory Exam: Decreased Breath Sounds - Cardiovascular Exam Cardiovascular Exam: REGULAR RHYTHM - GI/Abdominal Exam GI & Abdominal Exam: Distended, Soft Assessment and Plan - Assessment and Plan (Free Text) Assessment: for amp in am cont antibiotics post op
[2017-11-27] MEDS: Piperacill/Tazo 3.375gm in Dex 3.375 GM/50 ML BAG IVPB SCH ×3 (05:24→22:49)
[2017-11-27 06:49] LABS: BASO # 0.1 K/uL (0.0-0.2); BASO % 0.7 % (0.0-2.0); EOS # 0.3 K/uL (0.0-0.7); EOS % 2.4 % (0.0-4.0); HEMOGLOBIN 8.8 g/dL (11.0-16.0); LYMPH # 2.7 K/uL (1.0-4.3); LYMPH % 23.8 % (20.0-40.0); MEAN CELL VOLUME 85.1 fL (81.0-99.0); MEAN CORPUSCULAR HEMOGLOBIN 28.4 pg (27.0-31.0); MEAN CORPUSCULAR HGB CONC 33.3 g/dL (33.0-37.0); MONO # 0.8 K/uL (0.0-0.8); MONO % 7.4 % (0.0-10.0); NEUT # 7.3 K/uL (1.8-7.0); NEUT % 65.7 % (50.0-75.0); RBC 3.11 Mil/uL (3.80-5.20); RED CELL DISTRIBUTION WIDTH 13.9 % (11.5-14.5); WHITE BLOOD COUNT 11.2 K/uL (4.8-10.8)
[2017-11-27] MEDS: Levothyroxine 75 MCG TAB PO SCH (07:04)
[2017-11-27 07:16] LABS: INR 1.2; PROTHROMBIN TIME 13.1 SECONDS (9.7-12.2)
[2017-11-27 07:33] LABS: ALB/GLOB RATIO 0.9 (1.0-2.1); ALBUMIN 3.5 g/dL (3.5-5.0); ALT/SGPT 23 U/L (9-52); AST/SGOT 21 U/L (14-36); BLOOD UREA NITROGEN 16 mg/dL (7-17); CALCIUM 9.4 mg/dl (8.6-10.4); GFR NON-AFRICAN AMERICAN 50
[2017-11-27] MEDS: (Novolin R) Insulin Human Regular 100 units/ml vial SC SCH ×4 (08:01→22:01)
[2017-11-27] MEDS ORDERED: Lidocaine Hydrochloride 20 ML INJ ONE (09:59)
[2017-11-27] MEDS ORDERED: Bupivacaine 0.25% 20 ML INJ IJ ONE (09:59)
[2017-11-27] MEDS ORDERED: Midazolam 2 MG/2 ML VIAL ONE (10:19)
[2017-11-27] MEDS ORDERED: Propofol 10 mg/ml Inj (20 ML) ONE (10:20)
--- NOTE | 2017-11-27 11:32 | PCM.SURG1 ---
Surgeon's Initial Post Op Note - Surgeon's Notes Surgeon: Dr. Conn, DPM Plating Tank Operator Apprentice: Dr. Escalona PGY1, Dr. Bach PGY2 Type of Anesthesia: IV Sedation, Local Anesthesia Administered By: Bradley Pre-Operative Diagnosis: Right hallux severe osteomyelitis Operative Findings: see dictation. M: 3-0 vicryl, 3-0 nylon. I: 20cc 1:1 mix of 0.5% marcaine plain and 1% lidocaine plain Post-Operative Diagnosis: same Operation Performed: Right hallux, first metatarsal head, and sesamoid amputation with removal of all nonviable soft tissue Specimen/Specimens Removed: right hallux, right first metatarsal head, right sesamoids Estimated Blood Loss: EBL {In ML}: 20 Blood Products Given: N/A Drains Used: No Drains Post-Op Condition: Good Date of Surgery/Procedure: 11/27/17 Time of Surgery/Procedure: 11:32
--- NOTE | 2017-11-27 15:38 | RAD ---
Date of service: 11/27/2017 PROCEDURE: Right Foot Radiographs. HISTORY: s/p right hallux, sesamoid, met head amputation COMPARISON: Right foot radiographs 11/24/2017. FINDINGS: BONES: Extensive gauze obscures fine bone and soft-tissue detail. Patient now status post transmetatarsal amputation 1st metatarsal bone as therapy for gross great toe osteomyelitis/cellulitis. Remaining bony elements throughout the right foot appear intact with limited degenerative changes appreciated diffusely throughout the remaining joints. No subluxation or dislocation. Postoperative soft tissue edema is identified. JOINTS: As above. SOFT TISSUES: Above. OTHER FINDINGS: None. IMPRESSION: Status post transmetatarsal amputation 1st metatarsal bone as discussed above.
--- NOTE | 2017-11-27 16:38 | VASCLAB ---
Date of service: 11/25/2017 STUDY DESCRIPTION: Lower Extremity Arterial Exam (PVR). HISTORY: Pain in limb, Right ulcer PRIORS: None. TECHNIQUE: Pulse volume recording waveforms and segmental pressures of bilateral lower extremities at multiple levels were obtained. Ankle Brachial Indices (ABIs) were calculated. Report prepared by URSULA Soares, RVT RIGHT LOWER EXTREMITY: * Brachial artery: Pressure - 138 mmHg. * High thigh: Pressure - 164 mmHg: Ratio - 1.19: PVR waveform - Pulsatile * Low thigh: Pressure - 174 mmHg: Ratio - 1.26 PVR waveform: Pulsatile * Calf: Pressure - 156 mmHg: Ratio - 1.13 PVR waveform: Pulsatile * Posterior tibial Artery: Pressure - 147 mmHg: Ratio - 1.07 PVR waveform: Pulsatile * Dorsalis pedis Artery: Pressure - 163 mmHg: Ratio - 1.18 PVR waveform: Pulsatile Ankle brachial index (IDALIA): 1.18 LEFT LOWER EXTREMITY: * Brachial artery: Pressure - 136 mmHg. * High thigh: Pressure - 172 mmHg: Ratio - 1.25: PVR waveform - Pulsatile * Low thigh: Pressure - 174 mmHg: Ratio - 1.26 PVR waveform: Pulsatile * Calf: Pressure - 159 mmHg: Ratio - 1.15 PVR waveform: Pulsatile * Posterior tibial Artery: Pressure - 151 mmHg: Ratio - 1.09 PVR waveform: Pulsatile * Dorsalis pedis Artery: Pressure - 156 mmHg: Ratio - 1.13 PVR waveform: Pulsatile Ankle brachial index (IDALIA): 1.13 OTHER FINDINGS: None. IMPRESSION: Right: There was no evidence of hemodynamically significant arterial insufficiency in the right lower extremity. Left: There was no evidence of hemodynamically significant arterial insufficiency in the left lower extremity.
[2017-11-27 17:09] VITALS: RESP 20
[2017-11-27] MEDS: Oxycodone/Acetaminophen 5/325 mg Tab PO PRN ×2 (17:20→21:57)
--- NOTE | 2017-11-27 17:26 | CP.PCM.PN ---
<Adan Rodriguez - Last Filed: 11/27/17 17:23> Subjective - Date & Time of Evaluation Date of Evaluation: 11/27/17 Time of Evaluation: 17:23 - Subjective Subjective: PGY-[address] Gupta Patient seen and examined at bedside. No acute events overnight. Patient went to OR this afternoon for amputation of R hallux with podiatry (Dr. Conn). Pt was kept NPO overnight. This morning, patient had no new complaints. On rounds this afternoon, patient had been taken to OR. Will reassess patient tomorrow following surgery. Pt denies chest pain, nausea, SOB, paresthesias, headache, dizziness. Objective - Vital Signs/Intake and Output Vital Signs (last 24 hours): Temp Pulse Resp BP Pulse Ox 98.6 F 63 20 126/68 96 11/27/17 16:00 11/27/17 16:00 11/27/17 16:00 11/27/17 16:00 11/27/17 16:00 Intake and Output: 11/27/17 11/27/17 06:59 18:59 Intake Total 250 1195 Balance 250 1195 - Medications Medications: Current Medications Acetaminophen (Tylenol 325mg Tab) 650 mg PO Q6 PRN PRN Reason: Pain, Mild (1-3) Amlodipine Besylate (Norvasc) 10 mg PO DAILY [facility] Last Admin: 11/27/17 09:00 Dose: Not Given Dextrose (Dextrose 50% Inj) 0 ml IV STAT PRN; Protocol PRN Reason: Hypoglycemia Protocol Dextrose (Glutose 15) 0 gm PO ONCE PRN; Protocol PRN Reason: Hypoglycemia Protocol Glucagon (Glucagen Diagnostic Kit) 0 mg IM STAT PRN; Protocol PRN Reason: Hypoglycemia Protocol Heparin Sodium (Porcine) (Heparin) 5,000 units SC Q8 [facility] Last Admin: 11/26/17 21:43 Dose: Not Given Piperacillin Sod/Tazobactam Sod (Zosyn 3.375 Gm Iv Premix) 3.375 gm in 50 mls @ 100 mls/hr IVPB Q8 [facility] PRN Reason: Protocol Last Admin: 11/27/17 14:18 Dose: 100 mls/hr Dextrose (Dextrose 5% In Water 1000 Ml) 1,000 mls @ 0 mls/hr IV .Q0M PRN; Protocol; Per Protocol PRN Reason: Hypoglycemia Protocol Insulin Human Regular (Novolin R) 0 unit SC ACHS [facility] PRN Reason: Protocol Last Admin: 11/27/17 17:00 Dose: Not Given Levothyroxine Sodium (Synthroid) 75 mcg PO DAILY@0630 [facility] Last Admin: 11/27/17 07:04 Dose: Not Given Lisinopril (Zestril) 2.5 mg PO DAILY [facility] Last Admin: 11/27/17 10:00 Dose: Not Given Metformin HCl (Glucophage) 1,000 mg PO BID [facility] Last Admin: 11/26/17 09:06 Dose: 1,000 mg Oxycodone/Acetaminophen (Percocet 5/325 Mg Tab) 1 tab PO Q4H PRN PRN Reason: Pain, moderate (4-7) Stop: 11/30/17 11:27 Oxycodone/Acetaminophen (Percocet 5/325 Mg Tab) 2 tab PO Q4H PRN PRN Reason: Pain, severe (8-10) Stop: 11/30/17 11:27 Rosuvastatin Calcium (Crestor) 5 mg PO HS [facility] Last Admin: 11/26/17 21:46 Dose: 5 mg - Labs Labs: 11/27/17 06:44 11/27/17 06:44 PT 13.1 SECONDS (9.7-12.2) H 11/27/17 06:44 INR 1.2 11/27/17 06:44 APTT 40 SECONDS (21-34) H 11/27/17 06:44 - Head Exam Head Exam: ATRAUMATIC, NORMAL INSPECTION - Eye Exam Eye Exam: EOMI, Normal appearance - ENT Exam ENT Exam: Mucous Membranes Moist - Neck Exam Neck Exam: Full ROM. absent: Tenderness - Respiratory Exam Respiratory Exam: Clear to Ausculation Bilateral, NORMAL BREATHING PATTERN. absent: Rales, Wheezes - Cardiovascular Exam Cardiovascular Exam: REGULAR RHYTHM, +S1, +S2. absent: Murmur - GI/Abdominal Exam GI & Abdominal Exam: Soft, Normal Bowel Sounds. absent: Tenderness - Extremities Exam Additional comments: Dressings on L foot CDI. Pain with palpation and flexion/extension R hallux- pain decreased from yesterday. - Neurological Exam Neurological Exam: Alert, Awake, CN II-XII Intact, Oriented x3 - Psychiatric Exam Psychiatric exam: Normal Affect, Normal Mood - Skin Skin Exam: Dry, Intact, Normal Color, Warm Assessment and Plan - Assessment and Plan (Free Text) Assessment: Osteomyelitis R hallux -R hallux warm to touch, TTP, swollen, erythematous, + probe to bone -WBC 11.5 -continues to improve -ESR 129 -Podiatry (Dr. Conn) recs appreciated -Imaging: ---XR foot: Cortical teto erosion with periosteal teto reaction consistent with OM ---MRI foot (11/24/17) - Summary, see full report for details: Soft tissue/ abcess seen at level of 1st distal phalanx 1.6x1.8 cm - increased STIR signal suggestive of osteomyelitis. Focal signal abnormality seen within the medial sesamoid bone - infections/inflammatory changes cannot be excluded. Possible low grade sprain of Lisfranc ligament. 2nd metatarsal, middle cuneiform, and lateral cuneiform - probable degenerative change, however superimposed acute infection cannot be excluded. ---CXR (11/24): No active disease -Right hallux wound cultures: Ss Morganii, Sensitive to Meropenem (LUCIE <0.25) -IDALIA/PVR ordered - pending -Wound cleaned with saline and dressing applied using betadine, DSD -Pt to OR this afternoon. F/u tomorrow post-op -f/u ID (Dr. Johnson) recs -Pt on Meropenem (day #6). PICC not indicated at this time. Pt requires one more full week of ABx (planned end 12/02). Pt to remain hospitalized while receving Meropenem. Medications: -Zosyn 3.375 mg IVPB q8H per ID -home ASA 81 mg PO daily held in preparation for possible surgery, per Dr. Gupta DM -random glucose 132 -HbA1C 7.6 -ISS -hypoglycemic protocol -continue home medication: -Metformin 1000 mg PO BID held, to resume this evening HTN -continue home meds: -Norvasc 10 mg PO daily -Lisinopril 2.5 mg PO daily Hyperkalemia -Resolved Hx of Hypothyroidism -continue home med: -Synthroid 75 mcg PO daily PPx, Diet, Disposition -DVT ppx: heparin 5000 Units sc q8 -Diabetic diet Case discussed with Dr. Candy Rodriguez DO, PGY-1 <Maurisio Gupta - Last Filed: 11/28/17 07:29> Objective - Vital Signs/Intake and Output Vital Signs (last 24 hours): Temp Pulse Resp BP Pulse Ox 98.9 F 66 20 111/57 L 94 L 11/28/17 00:00 11/28/17 00:00 11/28/17 00:00 11/28/17 00:00 11/28/17 00:00 Intake and Output: 11/28/17 11/28/17 06:59 18:59 Intake Total 250 Balance 250 - Medications Medications: Current Medications Acetaminophen (Tylenol 325mg Tab) 650 mg PO Q6 PRN PRN Reason: Pain, Mild (1-3) Amlodipine Besylate (Norvasc) 10 mg PO DAILY [facility] Last Admin: 11/27/17 09:00 Dose: Not Given Dextrose (Dextrose 50% Inj) 0 ml IV STAT PRN; Protocol PRN Reason: Hypoglycemia Protocol Dextrose (Glutose 15) 0 gm PO ONCE PRN; Protocol PRN Reason: Hypoglycemia Protocol Glucagon (Glucagen Diagnostic Kit) 0 mg IM STAT PRN; Protocol PRN Reason: Hypoglycemia Protocol Heparin Sodium (Porcine) (Heparin) 5,000 units SC Q8 [facility] Last Admin: 11/26/17 21:43 Dose: Not Given Piperacillin Sod/Tazobactam Sod (Zosyn 3.375 Gm Iv Premix) 3.375 gm in 50 mls @ 100 mls/hr IVPB Q8 [facility] PRN Reason: Protocol Last Admin: 11/28/17 05:57 Dose: 100 mls/hr Dextrose (Dextrose 5% In Water 1000 Ml) 1,000 mls @ 0 mls/hr IV .Q0M PRN; Protocol; Per Protocol PRN Reason: Hypoglycemia Protocol Insulin Human Regular (Novolin R) 0 unit SC ACHS [facility] PRN Reason: Protocol Last Admin: 11/27/17 22:01 Dose: Not Given Levothyroxine Sodium (Synthroid) 75 mcg PO DAILY@0630 [facility] Last Admin: 11/28/17 05:58 Dose: 75 mcg Lisinopril (Zestril) 2.5 mg PO DAILY [facility] Last Admin: 11/27/17 10:00 Dose: Not Given Metformin HCl (Glucophage) 1,000 mg PO BID [facility] Last Admin: 11/27/17 21:59 Dose: Not Given Oxycodone/Acetaminophen (Percocet 5/325 Mg Tab) 1 tab PO Q4H PRN PRN Reason: Pain, moderate (4-7) Stop: 11/30/17 11:27 Last Admin: 11/27/17 21:57 Dose: 1 tab Oxycodone/Acetaminophen (Percocet 5/325 Mg Tab) 2 tab PO Q4H PRN PRN Reason: Pain, severe (8-10) Stop: 11/30/17 11:27 Rosuvastatin Calcium (Crestor) 5 mg PO HS [facility] Last Admin: 11/27/17 21:59 Dose: 5 mg - Labs Labs: 11/27/17 06:44 11/27/17 06:44 PT 13.1 SECONDS (9.7-12.2) H 11/27/17 06:44 INR 1.2 11/27/17 06:44 APTT 40 SECONDS (21-34) H 11/27/17 06:44 Attending/Attestation - Attestation I have personally seen and examined this patient.: Yes I have fully participated in the care of the patient.: Yes I have reviewed all pertinent clinical information, including history, physical exam and plan: Yes Notes (Text): 11/28/17 07:28 Medical attending: Patient was seen and examined by me. Agree with the above note by the resident The patient was not in any acute distress, later in the morning she went to OR for amputation of R hallux Continue with IV abx Maurisio Gupta
--- NOTE | 2017-11-27 19:46 | CP.PCM.PN ---
Subjective - Date & Time of Evaluation Date of Evaluation: 11/27/17 Time of Evaluation: 07:00 - Subjective Subjective: s/p amputation Objective - Vital Signs/Intake and Output Vital Signs (last 24 hours): Temp Pulse Resp BP Pulse Ox 98.6 F 63 20 126/68 96 11/27/17 16:00 11/27/17 16:00 11/27/17 16:00 11/27/17 16:00 11/27/17 16:00 Intake and Output: 11/27/17 11/28/17 18:59 06:59 Intake Total 1195 Balance 1195 - Medications Medications: Current Medications Acetaminophen (Tylenol 325mg Tab) 650 mg PO Q6 PRN PRN Reason: Pain, Mild (1-3) Amlodipine Besylate (Norvasc) 10 mg PO DAILY [facility] Last Admin: 11/27/17 09:00 Dose: Not Given Dextrose (Dextrose 50% Inj) 0 ml IV STAT PRN; Protocol PRN Reason: Hypoglycemia Protocol Dextrose (Glutose 15) 0 gm PO ONCE PRN; Protocol PRN Reason: Hypoglycemia Protocol Glucagon (Glucagen Diagnostic Kit) 0 mg IM STAT PRN; Protocol PRN Reason: Hypoglycemia Protocol Heparin Sodium (Porcine) (Heparin) 5,000 units SC Q8 [facility] Last Admin: 11/26/17 21:43 Dose: Not Given Piperacillin Sod/Tazobactam Sod (Zosyn 3.375 Gm Iv Premix) 3.375 gm in 50 mls @ 100 mls/hr IVPB Q8 [facility] PRN Reason: Protocol Last Admin: 11/27/17 14:18 Dose: 100 mls/hr Dextrose (Dextrose 5% In Water 1000 Ml) 1,000 mls @ 0 mls/hr IV .Q0M PRN; Protocol; Per Protocol PRN Reason: Hypoglycemia Protocol Insulin Human Regular (Novolin R) 0 unit SC ACHS [facility] PRN Reason: Protocol Last Admin: 11/27/17 17:00 Dose: Not Given Levothyroxine Sodium (Synthroid) 75 mcg PO DAILY@0630 [facility] Last Admin: 11/27/17 07:04 Dose: Not Given Lisinopril (Zestril) 2.5 mg PO DAILY [facility] Last Admin: 11/27/17 10:00 Dose: Not Given Metformin HCl (Glucophage) 1,000 mg PO BID [facility] Last Admin: 11/26/17 09:06 Dose: 1,000 mg Oxycodone/Acetaminophen (Percocet 5/325 Mg Tab) 1 tab PO Q4H PRN PRN Reason: Pain, moderate (4-7) Stop: 11/30/17 11:27 Oxycodone/Acetaminophen (Percocet 5/325 Mg Tab) 2 tab PO Q4H PRN PRN Reason: Pain, severe (8-10) Stop: 11/30/17 11:27 Rosuvastatin Calcium (Crestor) 5 mg PO HS [facility] Last Admin: 11/26/17 21:46 Dose: 5 mg - Labs Labs: 11/27/17 06:44 11/27/17 06:44 PT 13.1 SECONDS (9.7-12.2) H 11/27/17 06:44 INR 1.2 11/27/17 06:44 APTT 40 SECONDS (21-34) H 11/27/17 06:44 - Constitutional Appears: Non-toxic, Chronically Ill - Head Exam Head Exam: NORMOCEPHALIC - Eye Exam Eye Exam: PERRL - ENT Exam ENT Exam: Mucous Membranes Dry - Neck Exam Neck Exam: absent: Lymphadenopathy - Respiratory Exam Respiratory Exam: Decreased Breath Sounds Assessment and Plan (1) Osteomyelitis Status: Acute - Assessment and Plan (Free Text) Assessment: cont rx
[2017-11-28] MEDS: Piperacill/Tazo 3.375gm in Dex 3.375 GM/50 ML BAG IVPB SCH ×3 (05:57→21:32)
[2017-11-28] MEDS: Levothyroxine 75 MCG TAB PO SCH (05:58)
[2017-11-28 07:36] LABS: BASO # 0.1 K/uL (0.0-0.2); BASO % 0.5 % (0.0-2.0); EOS # 0.3 K/uL (0.0-0.7); EOS % 2.8 % (0.0-4.0); HEMOGLOBIN 8.5 g/dL (11.0-16.0); LYMPH # 2.9 K/uL (1.0-4.3); LYMPH % 23.4 % (20.0-40.0); MEAN CELL VOLUME 84.4 fL (81.0-99.0); MEAN CORPUSCULAR HEMOGLOBIN 28.5 pg (27.0-31.0); MEAN CORPUSCULAR HGB CONC 33.8 g/dL (33.0-37.0); MEAN PLATELET VOLUME 6.9 fL (7.2-11.7); MONO # 1.1 K/uL (0.0-0.8); MONO % 9.1 % (0.0-10.0); NEUT # 8.1 K/uL (1.8-7.0); NEUT % 64.2 % (50.0-75.0); RBC 2.98 Mil/uL (3.80-5.20); RED CELL DISTRIBUTION WIDTH 13.9 % (11.5-14.5); WHITE BLOOD COUNT 12.6 K/uL (4.8-10.8)
[2017-11-28] MEDS: (Novolin R) Insulin Human Regular 100 units/ml vial SC SCH ×4 (07:59→21:34)
[2017-11-28 08:10] LABS: ALB/GLOB RATIO 0.8 (1.0-2.1); ALBUMIN 3.4 g/dL (3.5-5.0); CALCIUM 8.9 mg/dl (8.6-10.4)
[2017-11-28] MEDS: Oxycodone/Acetaminophen 5/325 mg Tab PO PRN ×3 (09:08→17:27)
--- NOTE | 2017-11-28 09:19 | CP.PCM.PN ---
Subjective - Date & Time of Evaluation Date of Evaluation: 11/28/17 Time of Evaluation: : - Subjective Subjective: Podiatry Progress Note: Dr. Conn 66 year old female patient was evaluated at bedside 1 day s/p partial first ray amputation. Patient is AAOx3 and appears in no acute distress. Patient denies of having any acute overnight events. Reports that she has pins and needles type of sensation to the surgical site but she feels better with the application of ice. Denies of having F/N/V/C/SOB/CP/headache. No other pedal complains. Objective - Vital Signs/Intake and Output Vital Signs (last 24 hours): Temp Pulse Resp BP Pulse Ox 98.8 F 65 20 132/63 96 11/28/17 07:15 11/28/17 07:15 11/28/17 07:15 11/28/17 07:15 11/28/17 07:15 Intake and Output: 11/28/17 11/28/17 06:59 18:59 Intake Total 250 290 Balance 250 290 - Medications Medications: Current Medications Acetaminophen (Tylenol 325mg Tab) 650 mg PO Q6 PRN PRN Reason: Pain, Mild (1-3) Amlodipine Besylate (Norvasc) 10 mg PO DAILY [facility] Last Admin: 11/28/17 09:09 Dose: 10 mg Dextrose (Dextrose 50% Inj) 0 ml IV STAT PRN; Protocol PRN Reason: Hypoglycemia Protocol Dextrose (Glutose 15) 0 gm PO ONCE PRN; Protocol PRN Reason: Hypoglycemia Protocol Glucagon (Glucagen Diagnostic Kit) 0 mg IM STAT PRN; Protocol PRN Reason: Hypoglycemia Protocol Heparin Sodium (Porcine) (Heparin) 5,000 units SC Q8 [facility] Last Admin: 11/26/17 21:43 Dose: Not Given Piperacillin Sod/Tazobactam Sod (Zosyn 3.375 Gm Iv Premix) 3.375 gm in 50 mls @ 100 mls/hr IVPB Q8 [facility] PRN Reason: Protocol Last Admin: 11/28/17 05:57 Dose: 100 mls/hr Dextrose (Dextrose 5% In Water 1000 Ml) 1,000 mls @ 0 mls/hr IV .Q0M PRN; Prot ocol; Per Protocol PRN Reason: Hypoglycemia Protocol Insulin Human Regular (Novolin R) 0 unit SC ACHS [facility] PRN Reason: Protocol Last Admin: 11/28/17 07:59 Dose: Not Given Levothyroxine Sodium (Synthroid) 75 mcg PO DAILY@0630 [facility] Last Admin: 11/28/17 05:58 Dose: 75 mcg Lisinopril (Zestril) 2.5 mg PO DAILY [facility] Last Admin: 11/28/17 09:08 Dose: 2.5 mg Metformin HCl (Glucophage) 1,000 mg PO BID [facility] Last Admin: 11/28/17 09:07 Dose: 1,000 mg Oxycodone/Acetaminophen (Percocet 5/325 Mg Tab) 1 tab PO Q4H PRN PRN Reason: Pain, moderate (4-7) Stop: 11/30/17 11:27 Last Admin: 11/28/17 09:08 Dose: 1 tab Oxycodone/Acetaminophen (Percocet 5/325 Mg Tab) 2 tab PO Q4H PRN PRN Reason: Pain, severe (8-10) Stop: 11/30/17 11:27 Rosuvastatin Calcium (Crestor) 5 mg PO HS [facility] Last Admin: 11/27/17 21:59 Dose: 5 mg - Labs Labs: 11/28/17 07:07 11/28/17 07:07 PT 13.1 SECONDS (9.7-12.2) H 11/27/17 06:44 INR 1.2 11/27/17 06:44 APTT 40 SECONDS (21-34) H 11/27/17 06:44 - Constitutional Appears: Well, Non-toxic, No Acute Distress - Extremities Exam Additional comments: Dressing is clean, dry and intact. No strike through or drainage noted from the surgical dressing - Neurological Exam Neurological Exam: Alert, Awake, Oriented x3 - Psychiatric Exam Psychiatric exam: Normal Affect, Normal Mood Assessment and Plan - Assessment and Plan (Free Text) Assessment: 66 year old female evaluated for 1 day s/p right partial first ray amputation Plan: Patient seen and evaluated Discussed plan with attending Dr. Conn Labs, vitals and charts reviewed - afebrile Pre-op X-rays of the foot ordered - Cortical teto erosion with periosteal teto reaction consistent with OM Pre-op MRI - Increase in signal intensity of the distal and proximal phalanx of the right hallux on a T2 image consistent with OM IDALIA/PVR ordered - R:1.18, L:1.13 with good waveform to the metatarsal, official read pending Pre-op right hallux wound cultures - Jocelin Reyes ID consult - recs appreciated - continue IV abx as per ID Surgical path (proximal margin) - report pending Intra-op wound cultures - no growth first 24 hours (Prelim) Dressing is clean dry and intact with no strike through noted - LEAVE INTACT Allow WBAT to the heel using surgical shoe Will continue to monitor patient closely while in-house
--- NOTE | 2017-11-28 14:19 | CP.PCM.PN ---
<Adan Rodriguez - Last Filed: 11/28/17 14:07> Subjective - Date & Time of Evaluation Date of Evaluation: 11/28/17 Time of Evaluation: 14:22 - Subjective Subjective: PGY-[address] Gupta Pt seen and examined at bedside. No acute events overnight. Pt is status post R hallux amputation yesterday. Patient has no acute complaints other than mild pain surrounding the surgical incision site. She is tolerating a solid (heart healthy) diet. Patient denies fevers, chills, chest pain, nausea, vomiting, headache, dizziness, paresthesias. Objective - Vital Signs/Intake and Output Vital Signs (last 24 hours): Temp Pulse Resp BP Pulse Ox 98.8 F 65 20 132/63 96 11/28/17 07:15 11/28/17 07:15 11/28/17 07:15 11/28/17 07:15 11/28/17 07:15 Intake and Output: 11/28/17 11/28/17 06:59 18:59 Intake Total 250 290 Balance 250 290 - Medications Medications: Current Medications Acetaminophen (Tylenol 325mg Tab) 650 mg PO Q6 PRN PRN Reason: Pain, Mild (1-3) Amlodipine Besylate (Norvasc) 10 mg PO DAILY COUNTS [facility]CLUDE 234 BEDS AT THE [facility] Last Admin: 11/28/17 09:09 Dose: 10 mg Dextrose (Dextrose 50% Inj) 0 ml IV STAT PRN; Protocol PRN Reason: Hypoglycemia Protocol Dextrose (Glutose 15) 0 gm PO ONCE PRN; Protocol PRN Reason: Hypoglycemia Protocol Glucagon (Glucagen Diagnostic Kit) 0 mg IM STAT PRN; Protocol PRN Reason: Hypoglycemia Protocol Heparin Sodium (Porcine) (Heparin) 5,000 units SC Q8 COUNTS INCLUDE 234 BEDS AT THE [facility] Last Admin: 11/26/17 21:43 Dose: Not Given Piperacillin Sod/Tazobactam Sod (Zosyn 3.375 Gm Iv Premix) 3.375 gm in 50 mls @ 100 mls/hr IVPB Q8 COUNTS INCLUDE 234 BEDS AT THE [facility] PRN Reason: Protocol Last Admin: 11/28/17 05:57 Dose: 100 mls/hr Dextrose (Dextrose 5% In Water 1000 Ml) 1,000 mls @ 0 mls/hr IV .Q0M PRN; Protocol; Per Protocol PRN Reason: Hypoglycemia Protocol Insulin Human Regular (Novolin R) 0 unit SC ACHS COUNTS INCLUDE 234 BEDS AT THE [facility] PRN Reason: Protocol Last Admin: 11/28/17 11:24 Dose: Not Given Levothyroxine Sodium (Synthroid) 75 mcg PO DAILY@0630 COUNTS INCLUDE 234 BEDS AT THE [facility] Last Admin: 11/28/17 05:58 Dose: 75 mcg Lisinopril (Zestril) 2.5 mg PO DAILY COUNTS INCLUDE 234 BEDS AT THE [facility] Last Admin: 11/28/17 09:08 Dose: 2.5 mg Metformin HCl (Glucophage) 1,000 mg PO BID COUNTS INCLUDE 234 BEDS AT THE [facility] Last Admin: 11/28/17 09:07 Dose: 1,000 mg Oxycodone/Acetaminophen (Percocet 5/325 Mg Tab) 1 tab PO Q4H PRN PRN Reason: Pain, moderate (4-7) Stop: 11/30/17 11:27 Last Admin: 11/28/17 09:08 Dose: 1 tab Oxycodone/Acetaminophen (Percocet 5/325 Mg Tab) 2 tab PO Q4H PRN PRN Reason: Pain, severe (8-10) Stop: 11/30/17 11:27 Last Admin: 11/28/17 12:26 Dose: 2 tab Rosuvastatin Calcium (Crestor) 5 mg PO HS COUNTS INCLUDE 234 BEDS AT THE [facility] Last Admin: 11/27/17 21:59 Dose: 5 mg - Labs Labs: 11/28/17 07:07 11/28/17 07:07 PT 13.1 SECONDS (9.7-12.2) H 11/27/17 06:44 INR 1.2 11/27/17 06:44 APTT 40 SECONDS (21-34) H 11/27/17 06:44 - Constitutional Appears: Well, Non-toxic, No Acute Distress - Head Exam Head Exam: ATRAUMATIC, NORMAL INSPECTION - Eye Exam Eye Exam: EOMI, Normal appearance - ENT Exam ENT Exam: Mucous Membranes Moist, Normal Exam - Respiratory Exam Respiratory Exam: Clear to Ausculation Bilateral, NORMAL BREATHING PATTERN. absent: Rales, Rhonchi, Wheezes - Cardiovascular Exam Cardiovascular Exam: REGULAR RHYTHM, RRR, +S1, +S2. absent: Murmur - GI/Abdominal Exam GI & Abdominal Exam: Soft, Normal Bowel Sounds. absent: Tenderness - Extremities Exam Extremities Exam: absent: Pedal Edema Additional comments: Dressings on L foot CDI. [id number] pain s/p R hallux amputation. - Neurological Exam Neurological Exam: Alert, Awake, CN II-XII Intact, Oriented x3 - Psychiatric Exam Psychiatric exam: Normal Affect, Normal Mood - Skin Skin Exam: Dry, Intact, Normal Color, Warm Assessment and Plan - Assessment and Plan (Free Text) Assessment: Osteomyelitis R hallux S/p R hallux amputation -WBC 12.6 -continues to improve -ESR 129 -Podiatry (Dr. Conn) recs appreciated -Imaging: ---XR foot: Cortical teto erosion with periosteal teto reaction consistent with OM ---MRI foot (11/24/17) - Summary, see full report for details: Soft tissue/ abcess seen at level of 1st distal phalanx 1.6x1.8 cm - increased STIR signal suggestive of osteomyelitis. Focal signal abnormality seen within the medial sesamoid bone - infections/inflammatory changes cannot be excluded. Possible low grade sprain of Lisfranc ligament. 2nd metatarsal, middle cuneiform, and lateral cuneiform - probable degenerative change, however superimposed acute infection cannot be excluded. ---CXR (11/24): No active disease -Right hallux wound cultures: Ss Morganii, Sensitive to Meropenem (LUCIE <0.25) -S/p amputation yesterday -f/u ID (Dr. Johnson) recs -Pt on Zosyn (day #7). PICC not indicated at this time. Pt requires one more full week of ABx (planned end 12/02). Pt to remain hospitalized while receving IV Abx Medications: -Zosyn 3.375 mg IVPB q8H per ID -home ASA 81 mg PO daily held in preparation for possible surgery, per Dr. Gupta DM -random glucose 132 -HbA1C 7.6 -ISS -hypoglycemic protocol -continue home medication: -Metformin 1000 mg PO BID held, to resume this evening HTN -continue home meds: -Norvasc 10 mg PO daily -Lisinopril 2.5 mg PO daily Hyperkalemia -Resolved Hx of Hypothyroidism -continue home med: -Synthroid 75 mcg PO daily PPx, Diet, Disposition -DVT ppx: heparin 5000 Units sc q8 -Diabetic diet Case discussed with Dr. Candy Rodriguez DO, PGY-1 <Maurisio Gupta - Last Filed: 11/28/17 18:25> Objective - Vital Signs/Intake and Output Vital Signs (last 24 hours): Temp Pulse Resp BP Pulse Ox 99 F 74 20 124/61 95 11/28/17 15:53 11/28/17 15:53 11/28/17 15:53 11/28/17 15:53 11/28/17 15:53 Intake and Output: 11/28/17 11/28/17 06:59 18:59 Intake Total 250 700 Balance 250 700 - Medications Medications: Current Medications Acetaminophen (Tylenol 325mg Tab) 650 mg PO Q6 PRN PRN Reason: Pain, Mild (1-3) Amlodipine Besylate (Norvasc) 10 mg PO DAILY COUNTS INCLUDE 234 BEDS AT THE [facility] Last Admin: 11/28/17 09:09 Dose: 10 mg Dextrose (Dextrose 50% Inj) 0 ml IV STAT PRN; Protocol PRN Reason: Hypoglycemia Protocol Dextrose (Glutose 15) 0 gm PO ONCE PRN; Protocol PRN Reason: Hypoglycemia Protocol Glucagon (Glucagen Diagnostic Kit) 0 mg IM STAT PRN; Protocol PRN Reason: Hypoglycemia Protocol Heparin Sodium (Porcine) (Heparin) 5,000 units SC Q8 COUNTS INCLUDE 234 BEDS AT THE [facility] Last Admin: 11/28/17 14:45 Dose: 5,000 units Piperacillin Sod/Tazobactam Sod (Zosyn 3.375 Gm Iv Premix) 3.375 gm in 50 mls @ 100 mls/hr IVPB Q8 COUNTS INCLUDE 234 BEDS AT THE [facility] PRN Reason: Protocol Last Admin: 11/28/17 14:44 Dose: 100 mls/hr Dextrose (Dextrose 5% In Water 1000 Ml) 1,000 mls @ 0 mls/hr IV .Q0M PRN; Protocol; Per Protocol PRN Reason: Hypoglycemia Protocol Insulin Human Regular (Novolin R) 0 unit SC ACHS COUNTS INCLUDE 234 BEDS AT THE [facility] PRN Reason: Protocol Last Admin: 11/28/17 17:24 Dose: Not Given Levothyroxine Sodium (Synthroid) 75 mcg PO DAILY@0630 COUNTS INCLUDE 234 BEDS AT THE [facility] Last Admin: 11/28/17 05:58 Dose: 75 mcg Lisinopril (Zestril) 2.5 mg PO DAILY COUNTS INCLUDE 234 BEDS AT THE [facility] Last Admin: 11/28/17 09:08 Dose: 2.5 mg Metformin HCl (Glucophage) 1,000 mg PO BID COUNTS INCLUDE 234 BEDS AT THE [facility] Last Admin: 11/28/17 17:23 Dose: 1,000 mg Oxycodone/Acetaminophen (Percocet 5/325 Mg Tab) 1 tab PO Q4H PRN PRN Reason: Pain, moderate (4-7) Stop: 11/30/17 11:27 Last Admin: 11/28/17 09:08 Dose: 1 tab Oxycodone/Acetaminophen (Percocet 5/325 Mg Tab) 2 tab PO Q4H PRN PRN Reason: Pain, severe (8-10) Stop: 11/30/17 11:27 Last Admin: 11/28/17 17:27 Dose: 2 tab Rosuvastatin Calcium (Crestor) 5 mg PO HS [facility] Last Admin: 11/27/17 21:59 Dose: 5 mg - Labs Labs: 11/28/17 07:07 11/28/17 07:07 PT 13.1 SECONDS (9.7-12.2) H 11/27/17 06:44 INR 1.2 11/27/17 06:44 APTT 40 SECONDS (21-34) H 11/27/17 06:44 Attending/Attestation - Attestation I have personally seen and examined this patient.: Yes I have fully participated in the care of the patient.: Yes I have reviewed all pertinent clinical information, including history, physical exam and plan: Yes Notes (Text): 11/28/17 18:24 Medical attending: Patient was seen and examined by me and the medical insurance verifier , I reviewed the above note by the medical insurance verifier and agree with the above note. As mentioned above in the resident note the patient is status post amputation, postop day #1. She tells us that she is not having fevers, she denied chest pain, denied shortness breath, denied abdominal pain. She reports that she does have some tenderness at the site of amputation. She's currently on Percocet at this time and the pain is controlled with the Percocet. As mentioned previously, the patient will need to continue with IV antibiotics that she is currently on. We encouraged incentive spirometry, and participating with physical therapy thank you Maurisio Gupta
--- NOTE | 2017-11-28 18:34 | CP.PCM.PN ---
Subjective - Date & Time of Evaluation Date of Evaluation: 11/28/17 Time of Evaluation: 08:00 - Subjective Subjective: s/p first ray amp afebrile NAD Objective - Vital Signs/Intake and Output Vital Signs (last 24 hours): Temp Pulse Resp BP Pulse Ox 99 F 74 20 124/61 95 11/28/17 15:53 11/28/17 15:53 11/28/17 15:53 11/28/17 15:53 11/28/17 15:53 Intake and Output: 11/28/17 11/28/17 06:59 18:59 Intake Total 250 700 Balance 250 700 - Medications Medications: Current Medications Acetaminophen (Tylenol 325mg Tab) 650 mg PO Q6 PRN PRN Reason: Pain, Mild (1-3) Amlodipine Besylate (Norvasc) 10 mg PO DAILY [facility] Last Admin: 11/28/17 09:09 Dose: 10 mg Dextrose (Dextrose 50% Inj) 0 ml IV STAT PRN; Protocol PRN Reason: Hypoglycemia Protocol Dextrose (Glutose 15) 0 gm PO ONCE PRN; Protocol PRN Reason: Hypoglycemia Protocol Glucagon (Glucagen Diagnostic Kit) 0 mg IM STAT PRN; Protocol PRN Reason: Hypoglycemia Protocol Heparin Sodium (Porcine) (Heparin) 5,000 units SC Q8 [facility] Last Admin: 11/28/17 14:45 Dose: 5,000 units Piperacillin Sod/Tazobactam Sod (Zosyn 3.375 Gm Iv Premix) 3.375 gm in 50 mls @ 100 mls/hr IVPB Q8 [facility] PRN Reason: Protocol Last Admin: 11/28/17 14:44 Dose: 100 mls/hr Dextrose (Dextrose 5% In Water 1000 Ml) 1,000 mls @ 0 mls/hr IV .Q0M PRN; Protocol; Per Protocol PRN Reason: Hypoglycemia Protocol Insulin Human Regular (Novolin R) 0 unit SC ACHS [facility] PRN Reason: Protocol Last Admin: 11/28/17 17:24 Dose: Not Given Levothyroxine Sodium (Synthroid) 75 mcg PO DAILY@0630 [facility] Last Admin: 11/28/17 05:58 Dose: 75 mcg Lisinopril (Zestril) 2.5 mg PO DAILY [facility] Last Admin: 11/28/17 09:08 Dose: 2.5 mg Metformin HCl (Glucophage) 1,000 mg PO BID [facility] Last Admin: 11/28/17 17:23 Dose: 1,000 mg Oxycodone/Acetaminophen (Percocet 5/325 Mg Tab) 1 tab PO Q4H PRN PRN Reason: Pain, moderate (4-7) Stop: 11/30/17 11:27 Last Admin: 11/28/17 09:08 Dose: 1 tab Oxycodone/Acetaminophen (Percocet 5/325 Mg Tab) 2 tab PO Q4H PRN PRN Reason: Pain, severe (8-10) Stop: 11/30/17 11:27 Last Admin: 11/28/17 17:27 Dose: 2 tab Rosuvastatin Calcium (Crestor) 5 mg PO HS [facility] Last Admin: 11/27/17 21:59 Dose: 5 mg - Labs Labs: 11/28/17 07:07 11/28/17 07:07 PT 13.1 SECONDS (9.7-12.2) H 11/27/17 06:44 INR 1.2 11/27/17 06:44 APTT 40 SECONDS (21-34) H 11/27/17 06:44 - Constitutional Appears: Non-toxic, Chronically Ill - Head Exam Head Exam: NORMOCEPHALIC - Eye Exam Eye Exam: PERRL - ENT Exam ENT Exam: Mucous Membranes Dry - Neck Exam Neck Exam: absent: Lymphadenopathy - Respiratory Exam Respiratory Exam: Decreased Breath Sounds - Cardiovascular Exam Cardiovascular Exam: REGULAR RHYTHM - GI/Abdominal Exam GI & Abdominal Exam: Distended - Rectal Exam Rectal Exam: Deferred - Exam Exam: NORMAL INSPECTION Assessment and Plan (1) Osteomyelitis Status: Acute - Assessment and Plan (Free Text) Assessment: stable s/p first ray amp cont IV rx x 7 days then can switch to PO
[2017-11-29] MEDS: Piperacill/Tazo 3.375gm in Dex 3.375 GM/50 ML BAG IVPB SCH ×3 (05:09→21:06)
[2017-11-29] MEDS: Levothyroxine 75 MCG TAB PO SCH (05:56)
[2017-11-29 06:47] LABS: BASO # 0.1 K/uL (0.0-0.2); BASO % 0.5 % (0.0-2.0); EOS # 0.4 K/uL (0.0-0.7); EOS % 2.6 % (0.0-4.0); HEMOGLOBIN 7.8 g/dL (11.0-16.0); LYMPH # 2.8 K/uL (1.0-4.3); LYMPH % 20.9 % (20.0-40.0); MEAN CELL VOLUME 84.5 fL (81.0-99.0); MEAN CORPUSCULAR HEMOGLOBIN 27.8 pg (27.0-31.0); MEAN CORPUSCULAR HGB CONC 32.9 g/dL (33.0-37.0); MEAN PLATELET VOLUME 6.9 fL (7.2-11.7); MONO % 7.6 % (0.0-10.0); NEUT # 9.2 K/uL (1.8-7.0); NEUT % 68.4 % (50.0-75.0); RBC 2.82 Mil/uL (3.80-5.20); RED CELL DISTRIBUTION WIDTH 13.7 % (11.5-14.5); WHITE BLOOD COUNT 13.5 K/uL (4.8-10.8)
[2017-11-29 07:36] LABS: ALB/GLOB RATIO 0.9 (1.0-2.1); ALBUMIN 3.5 g/dL (3.5-5.0); CALCIUM 8.9 mg/dl (8.6-10.4)
[2017-11-29] MEDS: (Novolin R) Insulin Human Regular 100 units/ml vial SC SCH ×4 (08:05→21:11)
[2017-11-29] MEDS: Oxycodone/Acetaminophen 5/325 mg Tab PO PRN (10:11)
--- NOTE | 2017-11-29 13:20 | CP.PCM.PN ---
Subjective - Date & Time of Evaluation Date of Evaluation: 11/29/17 Time of Evaluation: 10:30 - Subjective Subjective: Podiatry Progress Note: Dr. Conn 66F female seen and evaluated with attending Dr. Conn at bedside 2 days s/p partial first ray amputation. Patient is AAOx3, in NAD. Patient seen with visitor at bedside. Denies acute overnight events. Patient reports that she is feeling better. Reports minimal pain to the surgical site. Dressing clean, dry and intact. Denies of having F/N/V/C/SOB/CP/headache. Objective - Vital Signs/Intake and Output Vital Signs (last 24 hours): Temp Pulse Resp BP Pulse Ox 98.4 F 63 20 120/59 L 97 11/29/17 08:00 11/29/17 08:00 11/29/17 08:00 11/29/17 08:00 11/29/17 08:00 Intake and Output: 11/29/17 11/29/17 06:59 18:59 Intake Total 300 300 Balance 300 300 - Medications Medications: Current Medications Acetaminophen (Tylenol 325mg Tab) 650 mg PO Q6 PRN PRN Reason: Pain, Mild (1-3) Amlodipine Besylate (Norvasc) 10 mg PO DAILY [facility] Last Admin: 11/29/17 10:13 Dose: 10 mg Dextrose (Dextrose 50% Inj) 0 ml IV STAT PRN; Protocol PRN Reason: Hypoglycemia Protocol Dextrose (Glutose 15) 0 gm PO ONCE PRN; Protocol PRN Reason: Hypoglycemia Protocol Glucagon (Glucagen Diagnostic Kit) 0 mg IM STAT PRN; Protocol PRN Reason: Hypoglycemia Protocol Heparin Sodium (Porcine) (Heparin) 5,000 units SC Q8 [facility] Last Admin: 11/29/17 05:08 Dose: 5,000 units Piperacillin Sod/Tazobactam Sod (Zosyn 3.375 Gm Iv Premix) 3.375 gm in 50 mls @ 100 mls/hr IVPB Q8 [facility] PRN Reason: Protocol Last Admin: 11/29/17 05:09 Dose: 100 mls/hr Dextrose (Dextrose 5% In Water 1000 Ml) 1,000 mls @ 0 mls/hr IV .Q0M PRN; Protocol; Per Protocol PRN Reason: Hypoglycemia Protocol Insulin Human Regular (Novolin R) 0 unit SC ACHS [facility] PRN Reason: Protocol Last Admin: 11/29/17 12:30 Dose: 2 units Levothyroxine Sodium (Synthroid) 75 mcg PO DAILY@0630 [facility] Last Admin: 11/29/17 05:56 Dose: 75 mcg Lisinopril (Zestril) 2.5 mg PO DAILY [facility] Last Admin: 11/29/17 10:14 Dose: 2.5 mg Metformin HCl (Glucophage) 1,000 mg PO BID [facility] Last Admin: 11/29/17 10:13 Dose: 1,000 mg Ondansetron HCl (Zofran Tab) 4 mg PO Q4H PRN PRN Reason: Nausea/Vomiting Last Admin: 11/29/17 05:08 Dose: 4 mg Oxycodone/Acetaminophen (Percocet 5/325 Mg Tab) 1 tab PO Q4H PRN PRN Reason: Pain, moderate (4-7) Stop: 11/30/17 11:27 Last Admin: 11/29/17 10:11 Dose: 1 tab Oxycodone/Acetaminophen (Percocet 5/325 Mg Tab) 2 tab PO Q4H PRN PRN Reason: Pain, severe (8-10) Stop: 11/30/17 11:27 Last Admin: 11/28/17 17:27 Dose: 2 tab Rosuvastatin Calcium (Crestor) 5 mg PO [facility] Last Admin: 11/28/17 21:26 Dose: 5 mg - Labs Labs: 11/29/17 06:28 11/29/17 06:28 PT 13.1 SECONDS (9.7-12.2) H 11/27/17 06:44 INR 1.2 11/27/17 06:44 APTT 40 SECONDS (21-34) H 11/27/17 06:44 - Constitutional Appears: Well, Non-toxic, No Acute Distress - Extremities Exam Extremities Exam: absent: Calf Tenderness Additional comments: Bilateral LE exam VASC: DP/PT pulses are palpable 2/4, Cap refill time: < 3 sec to all digits, Temp gradient: warm to cool from proximal to distal, localized non-pitting edema noted to the medial right forefoot DERM: Surgical incision at the distal medial forefoot s/p partial first ray amputation is well co-apted, reapproximated with no dehiscence. Sutures intact without unraveling. Periwound is clean and dry, no maceration. Mild erythema, no increase in calor, no fluctanance, no abscess, no odor, or active drainage noted. NEURO: Protective sensation mildly diminished, gross sensation intact ORTHO: mild-moderate pain on palpation of surrounding surgical site, 1-5 digits AROM present - Neurological Exam Neurological Exam: Alert, Awake, Oriented x3 - Psychiatric Exam Psychiatric exam: Normal Affect, Normal Mood Assessment and Plan - Assessment and Plan (Free Text) Assessment: 66 year old female evaluated for 2 days s/p right partial first ray amputation Plan: Patient seen and evaluated with attending Dr. Conn Labs, vitals and charts reviewed - afebrile, WBC 13.5 Pre-op X-rays of the foot ordered - Cortical teto erosion with periosteal teto reaction consistent with OM Pre-op MRI - Increase in signal intensity of the distal and proximal phalanx of the right hallux on a T2 image consistent with OM IDALIA/PVR ordered - R:1.18, L:1.13 with good waveform to the metatarsal, official read pending Pre-op right hallux wound cultures - Jocelin Reyes ID consult - recs appreciated - continue IV abx as per ID Surgical path (proximal margin) - report pending Intra-op wound cultures - no growth first 24 hours (Prelim) Cleansed surgical site with saline solution, dressed with xeroform, gauze, ABD, kerlix and light CATRACHO Allow WBAT to the heel using surgical shoe Will continue to monitor patient closely while in-house
--- NOTE | 2017-11-30 02:54 | CP.PCM.PN ---
<Celestino Knutson - Last Filed: 11/30/17 02:50> Subjective - Date & Time of Evaluation Date of Evaluation: 11/30/17 Time of Evaluation: 02:51 - Subjective Subjective: PGY-1 Medicine Progress Note for Dr. Gupta Patient seen and examined at bedside POD#3, resting comfortably and in no acute distress. Patient reports that she is feeling well with minimal pain to the surgical site. Dressing clean, dry and intact. No fevers/chills, headaches, chest pain, abdominal pain, nausea/vomiting/diarrhea/constipation, or urinary symptoms. Objective - Vital Signs/Intake and Output Vital Signs (last 24 hours): Temp Pulse Resp BP Pulse Ox 99.3 F 70 20 130/62 96 11/30/17 00:00 11/30/17 00:00 11/30/17 00:00 11/30/17 00:00 11/30/17 00:00 Intake and Output: 11/29/17 11/30/17 18:59 06:59 Intake Total 830 Balance 830 - Medications Medications: Current Medications Acetaminophen (Tylenol 325mg Tab) 650 mg PO Q6 PRN PRN Reason: Pain, Mild (1-3) Amlodipine Besylate (Norvasc) 10 mg PO DAILY [facility] Last Admin: 11/29/17 10:13 Dose: 10 mg Dextrose (Dextrose 50% Inj) 0 ml IV STAT PRN; Protocol PRN Reason: Hypoglycemia Protocol Dextrose (Glutose 15) 0 gm PO ONCE PRN; Protocol PRN Reason: Hypoglycemia Protocol Glucagon (Glucagen Diagnostic Kit) 0 mg IM STAT PRN; Protocol PRN Reason: Hypoglycemia Protocol Heparin Sodium (Porcine) (Heparin) 5,000 units SC Q8 [facility] Last Admin: 11/29/17 21:05 Dose: 5,000 units Piperacillin Sod/Tazobactam Sod (Zosyn 3.375 Gm Iv Premix) 3.375 gm in 50 mls @ 100 mls/hr IVPB Q8 [facility] PRN Reason: Protocol Last Admin: 11/29/17 21:06 Dose: 100 mls/hr Dextrose (Dextrose 5% In Water 1000 Ml) 1,000 mls @ 0 mls/hr IV .Q0M PRN; Protocol; Per Protocol PRN Reason: Hypoglycemia Protocol Insulin Human Regular (Novolin R) 0 unit SC ACHS [facility] PRN Reason: Protocol Last Admin: 11/29/17 21:11 Dose: Not Given Levothyroxine Sodium (Synthroid) 75 mcg PO DAILY@0630 [facility] Last Admin: 11/29/17 05:56 Dose: 75 mcg Lisinopril (Zestril) 2.5 mg PO DAILY [facility] Last Admin: 11/29/17 10:14 Dose: 2.5 mg Metformin HCl (Glucophage) 1,000 mg PO BID [facility] Last Admin: 11/29/17 17:33 Dose: 1,000 mg Ondansetron HCl (Zofran Tab) 4 mg PO Q4H PRN PRN Reason: Nausea/Vomiting Last Admin: 11/29/17 05:08 Dose: 4 mg Oxycodone/Acetaminophen (Percocet 5/325 Mg Tab) 1 tab PO Q4H PRN PRN Reason: Pain, moderate (4-7) Stop: 11/30/17 11:27 Last Admin: 11/29/17 10:11 Dose: 1 tab Oxycodone/Acetaminophen (Percocet 5/325 Mg Tab) 2 tab PO Q4H PRN PRN Reason: Pain, severe (8-10) Stop: 11/30/17 11:27 Last Admin: 11/28/17 17:27 Dose: 2 tab Rosuvastatin Calcium (Crestor) 5 mg PO [facility] Last Admin: 11/28/17 21:26 Dose: 5 mg - Labs Labs: 11/29/17 06:28 11/29/17 06:28 PT 13.1 SECONDS (9.7-12.2) H 11/27/17 06:44 INR 1.2 11/27/17 06:44 APTT 40 SECONDS (21-34) H 11/27/17 06:44 - Constitutional Appears: Non-toxic, No Acute Distress - Head Exam Head Exam: ATRAUMATIC, NORMAL INSPECTION, NORMOCEPHALIC - Eye Exam Eye Exam: EOMI, Normal appearance - ENT Exam ENT Exam: Mucous Membranes Moist, Normal Exam - Neck Exam Neck Exam: Full ROM, Normal Inspection. absent: Tenderness - Respiratory Exam Respiratory Exam: Clear to Ausculation Bilateral, NORMAL BREATHING PATTERN. absent: Rales, Rhonchi, Wheezes, Respiratory Distress, Stridor - Cardiovascular Exam Cardiovascular Exam: REGULAR RHYTHM, +S1, +S2 - GI/Abdominal Exam GI & Abdominal Exam: Soft, Normal Bowel Sounds. absent: Distended, Firm, Guarding, Rigid, Tenderness, Organomegaly, Rebound - Extremities Exam Extremities Exam: absent: Pedal Edema Additional comments: Dressings on L foot CDI. [id number] pain s/p R hallux amputation - Back Exam Back Exam: NORMAL INSPECTION - Neurological Exam Neurological Exam: Alert, Awake, Oriented x3 - Psychiatric Exam Psychiatric exam: Normal Affect, Normal Mood - Skin Skin Exam: Dry, Intact, Normal Color, Warm Assessment and Plan - Assessment and Plan (Free Text) Assessment: 66 yo F with PMHx of HTN, DM, hypothyroidism, and anemia admitted for osteomyelitis of R toe, s/p amputation POD3. Plan: Osteomyelitis R hallux S/p R hallux amputation -WBC 12.6 -continues to improve -ESR 129 -Podiatry (Dr. Conn) recs appreciated -Imaging: ---XR foot: Cortical teto erosion with periosteal teto reaction consistent with OM ---MRI foot (11/24/17) - Summary, see full report for details: Soft tissue/ abcess seen at level of 1st distal phalanx 1.6x1.8 cm - increased STIR signal suggestive of osteomyelitis. Focal signal abnormality seen within the medial sesamoid bone - infections/inflammatory changes cannot be excluded. Possible low grade sprain of Lisfranc ligament. 2nd metatarsal, middle cuneiform, and lateral cuneiform - probable degenerative change, however superimposed acute infection cannot be excluded. ---CXR (11/24): No active disease -Right hallux wound cultures: Ss Morganii, Sensitive to Meropenem (LUCIE <0.25) -S/p amputation yesterday -f/u ID (Dr. Johnson) recs -Pt on Zosyn (day #7). PICC not indicated at this time. Pt requires one more full week of ABx (planned end 12/02). Pt to remain hospitalized while receving IV Abx Medications: -Zosyn 3.375 mg IVPB q8H per ID -home ASA 81 mg PO daily held in preparation for possible surgery, per Dr. Gupta DM -random glucose 132 -HbA1C 7.6 -ISS -hypoglycemic protocol -continue home medication: -Metformin 1000 mg PO BID held, to resume this evening HTN -continue home meds: -Norvasc 10 mg PO daily -Lisinopril 2.5 mg PO daily Hyperkalemia -Resolved Hx of Hypothyroidism -continue home med: -Synthroid 75 mcg PO daily PPx, Diet, Disposition -DVT ppx: heparin 5000 Units sc q8 -Diabetic diet Case to be discussed with Dr. Candy Knutson DO, PGY-1 <Maurisio Gupta H - Last Filed: 11/30/17 15:00> Objective - Vital Signs/Intake and Output Vital Signs (last 24 hours): Temp Pulse Resp BP Pulse Ox 99.2 F 65 20 115/60 95 11/30/17 07:36 11/30/17 07:36 11/30/17 07:36 11/30/17 07:36 11/30/17 07:36 Intake and Output: 11/30/17 11/30/17 06:59 18:59 Intake Total 290 Balance 290 - Medications Medications: Current Medications Acetaminophen (Tylenol 325mg Tab) 650 mg PO Q6 PRN PRN Reason: Pain, Mild (1-3) Amlodipine Besylate (Norvasc) 10 mg PO DAILY [facility] Last Admin: 11/30/17 11:00 Dose: 10 mg Dextrose (Dextrose 50% Inj) 0 ml IV STAT PRN; Protocol PRN Reason: Hypoglycemia Protocol Dextrose (Glutose 15) 0 gm PO ONCE PRN; Protocol PRN Reason: Hypoglycemia Protocol Glucagon (Glucagen Diagnostic Kit) 0 mg IM STAT PRN; Protocol PRN Reason: Hypoglycemia Protocol Heparin Sodium (Porcine) (Heparin) 5,000 units SC Q8 [facility] Last Admin: 11/30/17 14:37 Dose: 5,000 units Dextrose (Dextrose 5% In Water 1000 Ml) 1,000 mls @ 0 mls/hr IV .Q0M PRN; Protocol; Per Protocol PRN Reason: Hypoglycemia Protocol Insulin Human Regular (Novolin R) 0 unit SC ACHS [facility] PRN Reason: Protocol Last Admin: 11/30/17 11:50 Dose: Not Given Levothyroxine Sodium (Synthroid) 75 mcg PO DAILY@0630 [facility] Last Admin: 11/30/17 05:36 Dose: 75 mcg Lisinopril (Zestril) 2.5 mg PO DAILY [facility] Last Admin: 11/30/17 11:00 Dose: 2.5 mg Metformin HCl (Glucophage) 1,000 mg PO BID [facility] Last Admin: 11/30/17 11:00 Dose: 1,000 mg Ondansetron HCl (Zofran Tab) 4 mg PO Q4H PRN PRN Reason: Nausea/Vomiting Last Admin: 11/29/17 05:08 Dose: 4 mg Rosuvastatin Calcium (Crestor) 5 mg PO HS [facility] Last Admin: 11/28/17 21:26 Dose: 5 mg - Labs Labs: 11/30/17 07:10 11/30/17 07:10 PT 13.1 SECONDS (9.7-12.2) H 11/27/17 06:44 INR 1.2 11/27/17 06:44 APTT 40 SECONDS (21-34) H 11/27/17 06:44 Attending/Attestation - Attestation I have personally seen and examined this patient.: Yes I have fully participated in the care of the patient.: Yes I have reviewed all pertinent clinical information, including history, physical exam and plan: Yes Notes (Text): 11/30/17 14:56 Medical attending: Patient was seen and examined by me. Agree with the above note by the resident The patient is currently doing well, pain is controlled. She remains on IV abx and this is the 6th day. The patient has been afebrile, and other than the foot denies chest pain - she has been denying abdominal pain and denies shortness of breath Possible patient could go on PO abx tomxander Gupta
[2017-11-30] MEDS: Piperacill/Tazo 3.375gm in Dex 3.375 GM/50 ML BAG IVPB SCH (05:35)
[2017-11-30] MEDS: Levothyroxine 75 MCG TAB PO SCH (05:36)
[2017-11-30 07:31] LABS: BASO # 0.1 K/uL (0.0-0.2); EOS # 0.4 K/uL (0.0-0.7); HEMOGLOBIN 8.1 g/dL (11.0-16.0); LYMPH # 2.7 K/uL (1.0-4.3); LYMPH % 20.6 % (20.0-40.0); MEAN CELL VOLUME 85.2 fL (81.0-99.0); MEAN CORPUSCULAR HEMOGLOBIN 28.5 pg (27.0-31.0); MEAN CORPUSCULAR HGB CONC 33.5 g/dL (33.0-37.0); MEAN PLATELET VOLUME 7.2 fL (7.2-11.7); MONO # 0.9 K/uL (0.0-0.8); MONO % 6.5 % (0.0-10.0); NEUT # 9.1 K/uL (1.8-7.0); NEUT % 68.9 % (50.0-75.0); RBC 2.84 Mil/uL (3.80-5.20); RED CELL DISTRIBUTION WIDTH 13.9 % (11.5-14.5); WHITE BLOOD COUNT 13.2 K/uL (4.8-10.8)
[2017-11-30 07:50] LABS: ALB/GLOB RATIO 0.9 (1.0-2.1); ALBUMIN 3.6 g/dL (3.5-5.0); CALCIUM 9.2 mg/dl (8.6-10.4)
[2017-11-30] MEDS: (Novolin R) Insulin Human Regular 100 units/ml vial SC SCH ×4 (08:30→21:26)
--- NOTE | 2017-11-30 14:44 | CP.PCM.PN ---
Subjective - Date & Time of Evaluation Date of Evaluation: 11/30/17 Time of Evaluation: 15:00 - Subjective Subjective: Podiatry Progress Note: Dr. Conn 66F female seen and evaluated bedside 3 days s/p partial first ray amputation. Patient is AAOx3, in NAD. Patient seen with visitor at bedside. Denies acute overnight events. Patient reports that she is feeling better. Reports very minimal pain to the surgical site. Dressing clean, dry and intact. Denies of having F/N/V/C/SOB/CP/headache. Objective - Vital Signs/Intake and Output Vital Signs (last 24 hours): Temp Pulse Resp BP Pulse Ox 99.2 F 65 20 115/60 95 11/30/17 07:36 11/30/17 07:36 11/30/17 07:36 11/30/17 07:36 11/30/17 07:36 Intake and Output: 11/30/17 11/30/17 06:59 18:59 Intake Total 290 Balance 290 - Medications Medications: Current Medications Acetaminophen (Tylenol 325mg Tab) 650 mg PO Q6 PRN PRN Reason: Pain, Mild (1-3) Amlodipine Besylate (Norvasc) 10 mg PO DAILY [facility] Last Admin: 11/30/17 11:00 Dose: 10 mg Dextrose (Dextrose 50% Inj) 0 ml IV STAT PRN; Protocol PRN Reason: Hypoglycemia Protocol Dextrose (Glutose 15) 0 gm PO ONCE PRN; Protocol PRN Reason: Hypoglycemia Protocol Glucagon (Glucagen Diagnostic Kit) 0 mg IM STAT PRN; Protocol PRN Reason: Hypoglycemia Protocol Heparin Sodium (Porcine) (Heparin) 5,000 units SC Q8 [facility] Last Admin: 11/30/17 14:37 Dose: 5,000 units Dextrose (Dextrose 5% In Water 1000 Ml) 1,000 mls @ 0 mls/hr IV .Q0M PRN; Protocol; Per Protocol PRN Reason: Hypoglycemia Protocol Insulin Human Regular (Novolin R) 0 unit SC ACHS [facility] PRN Reason: Protocol Last Admin: 11/30/17 11:50 Dose: Not Given Levothyroxine Sodium (Synthroid) 75 mcg PO DAILY@0630 [facility] Last Admin: 11/30/17 05:36 Dose: 75 mcg Lisinopril (Zestril) 2.5 mg PO DAILY [facility] Last Admin: 11/30/17 11:00 Dose: 2.5 mg Metformin HCl (Glucophage) 1,000 mg PO BID [facility] Last Admin: 11/30/17 11:00 Dose: 1,000 mg Ondansetron HCl (Zofran Tab) 4 mg PO Q4H PRN PRN Reason: Nausea/Vomiting Last Admin: 11/29/17 05:08 Dose: 4 mg Rosuvastatin Calcium (Crestor) 5 mg PO HS [facility] Last Admin: 11/28/17 21:26 Dose: 5 mg - Labs Labs: 11/30/17 07:10 11/30/17 07:10 PT 13.1 SECONDS (9.7-12.2) H 11/27/17 06:44 INR 1.2 11/27/17 06:44 APTT 40 SECONDS (21-34) H 11/27/17 06:44 - Constitutional Appears: Well, Non-toxic, No Acute Distress - Extremities Exam Extremities Exam: absent: Calf Tenderness Additional comments: Dressing clean, dry, and intact without strikethrough. Temperature gradient WNL No calf tenderness or pain with palpation AROM 1-5 present Assessment and Plan - Assessment and Plan (Free Text) Assessment: 66 year old female evaluated for 3 days s/p right partial first ray amputation Plan: Patient seen and evaluated with attending Dr. Conn Labs, vitals and charts reviewed - afebrile, WBC 13.2 Pre-op X-rays of the foot ordered - Cortical teto erosion with periosteal teto reaction consistent with OM Pre-op MRI - Increase in signal intensity of the distal and proximal phalanx of the right hallux on a T2 image consistent with OM IDALIA/PVR ordered - R:1.18, L:1.13 with good waveform to the metatarsal, official read pending Pre-op right hallux wound cultures - Morg Morganii ID consult - recs appreciated - continue IV abx as per ID Surgical path (proximal margin) - report pending Intra-op wound cultures - no growth first 24 hours (Prelim) Cleansed surgical site with saline solution, dressed with xeroform, gauze, ABD, kerlix and light CATRACHO Allow WBAT to the heel using surgical shoe Will continue to monitor patient closely while in-house
[2017-11-30] MEDS ORDERED: Piperacillin/Tazobact 3.375 GM in Sodium Chloride 100 ML IVPB SCH (16:30)
--- NOTE | 2017-11-30 16:32 | CP.PCM.PN ---
Subjective - Date & Time of Evaluation Date of Evaluation: 11/30/17 Time of Evaluation: 08:00 - Subjective Subjective: worsening renal function noted zosyn on hold sent eos. urine consider renal eval Objective - Vital Signs/Intake and Output Vital Signs (last 24 hours): Temp Pulse Resp BP Pulse Ox 100.1 F H 69 20 123/61 96 11/30/17 15:00 11/30/17 15:00 11/30/17 15:00 11/30/17 15:00 11/30/17 15:00 Intake and Output: 11/30/17 11/30/17 06:59 18:59 Intake Total 290 Balance 290 - Medications Medications: Current Medications Acetaminophen (Tylenol 325mg Tab) 650 mg PO Q6 PRN PRN Reason: Pain, Mild (1-3) Last Admin: 11/30/17 16:10 Dose: 650 mg Amlodipine Besylate (Norvasc) 10 mg PO DAILY [facility] Last Admin: 11/30/17 11:00 Dose: 10 mg Dextrose (Dextrose 50% Inj) 0 ml IV STAT PRN; Protocol PRN Reason: Hypoglycemia Protocol Dextrose (Glutose 15) 0 gm PO ONCE PRN; Protocol PRN Reason: Hypoglycemia Protocol Glucagon (Glucagen Diagnostic Kit) 0 mg IM STAT PRN; Protocol PRN Reason: Hypoglycemia Protocol Heparin Sodium (Porcine) (Heparin) 5,000 units SC Q8 [facility] Last Admin: 11/30/17 14:37 Dose: 5,000 units Dextrose (Dextrose 5% In Water 1000 Ml) 1,000 mls @ 0 mls/hr IV .Q0M PRN; Protocol; Per Protocol PRN Reason: Hypoglycemia Protocol Cefepime HCl 1 gm/ Dextrose 50 mls @ 100 mls/hr IVPB Q12H [facility] PRN Reason: Protocol Insulin Human Regular (Novolin R) 0 unit SC ACHS [facility] PRN Reason: Protocol Last Admin: 11/30/17 11:50 Dose: Not Given Levothyroxine Sodium (Synthroid) 75 mcg PO DAILY@0630 [facility] Last Admin: 11/30/17 05:36 Dose: 75 mcg Lisinopril (Zestril) 2.5 mg PO DAILY [facility] Last Admin: 11/30/17 11:00 Dose: 2.5 mg Metformin HCl (Glucophage) 1,000 mg PO BID [facility] Last Admin: 11/30/17 11:00 Dose: 1,000 mg Ondansetron HCl (Zofran Tab) 4 mg PO Q4H PRN PRN Reason: Nausea/Vomiting Last Admin: 11/29/17 05:08 Dose: 4 mg Rosuvastatin Calcium (Crestor) 5 mg PO HS [facility] Last Admin: 11/28/17 21:26 Dose: 5 mg - Labs Labs: 11/30/17 07:10 11/30/17 07:10 PT 13.1 SECONDS (9.7-12.2) H 11/27/17 06:44 INR 1.2 11/27/17 06:44 APTT 40 SECONDS (21-34) H 11/27/17 06:44 - Constitutional Appears: Non-toxic, Chronically Ill - Head Exam Head Exam: NORMOCEPHALIC - Eye Exam Eye Exam: PERRL - ENT Exam ENT Exam: Mucous Membranes Dry - Neck Exam Neck Exam: absent: Lymphadenopathy - Respiratory Exam Respiratory Exam: Decreased Breath Sounds - Cardiovascular Exam Cardiovascular Exam: REGULAR RHYTHM - GI/Abdominal Exam GI & Abdominal Exam: Distended - Rectal Exam Rectal Exam: Deferred Assessment and Plan (1) Osteomyelitis Status: Acute - Assessment and Plan (Free Text) Assessment: worsening renal function noted zosyn on hold sent eos. urine consider renal eval
[2017-12-01] MEDS: Levothyroxine 75 MCG TAB PO SCH (06:16)
[2017-12-01 06:43] LABS: BASO # 0.1 K/uL (0.0-0.2); BASO % 0.8 % (0.0-2.0); EOS # 0.5 K/uL (0.0-0.7); EOS % 3.6 % (0.0-4.0); HEMOGLOBIN 8.2 g/dL (11.0-16.0); LYMPH % 21.7 % (20.0-40.0); MEAN CELL VOLUME 84.9 fL (81.0-99.0); MEAN CORPUSCULAR HEMOGLOBIN 28.4 pg (27.0-31.0); MEAN CORPUSCULAR HGB CONC 33.4 g/dL (33.0-37.0); MEAN PLATELET VOLUME 7.1 fL (7.2-11.7); MONO # 0.9 K/uL (0.0-0.8); MONO % 6.4 % (0.0-10.0); NEUT # 9.3 K/uL (1.8-7.0); NEUT % 67.5 % (50.0-75.0); RBC 2.89 Mil/uL (3.80-5.20); RED CELL DISTRIBUTION WIDTH 13.8 % (11.5-14.5); WHITE BLOOD COUNT 13.8 K/uL (4.8-10.8)
[2017-12-01 07:20] LABS: ALB/GLOB RATIO 0.9 (1.0-2.1); ALBUMIN 3.8 g/dL (3.5-5.0); CALCIUM 9.5 mg/dl (8.6-10.4)
[2017-12-01] MEDS: (Novolin R) Insulin Human Regular 100 units/ml vial SC SCH ×4 (07:50→21:41)
[2017-12-01] MEDS ORDERED: Sod Polystyrene Sulf 15 gm/60 ml Susp PO ONE (08:01)
[2017-12-01] MEDS: Sodium Chloride 0.9% 1,000 ML IV SCH ×2 (09:28→22:21)
--- NOTE | 2017-12-01 10:03 | CP.PCM.PN ---
Subjective - Date & Time of Evaluation Date of Evaluation: 12/01/17 Time of Evaluation: 10:00 - Subjective Subjective: Podiatry Progress Note: Dr. Conn 66 year old female seen and evaluated bedside 4 days s/p partial first ray amputation. Patient is AAOx3, in NAD. Denies acute overnight events. Patient reports that she is feeling better. Reports very minimal pain to the surgical site when someone touches it. Dressing clean, dry and intact. Denies of having F/N/V/C/SOB/CP/headache. No other pedal complains at this time. Objective - Vital Signs/Intake and Output Vital Signs (last 24 hours): Temp Pulse Resp BP Pulse Ox 98.5 F 67 20 122/64 98 12/01/17 08:11 12/01/17 08:11 12/01/17 08:11 12/01/17 08:11 12/01/17 08:11 - Medications Medications: Current Medications Acetaminophen (Tylenol 325mg Tab) 650 mg PO Q6 PRN PRN Reason: Pain, Mild (1-3) Last Admin: 11/30/17 16:10 Dose: 650 mg Amlodipine Besylate (Norvasc) 10 mg PO DAILY [facility] Last Admin: 12/01/17 09:28 Dose: 10 mg Dextrose (Dextrose 50% Inj) 0 ml IV STAT PRN; Protocol PRN Reason: Hypoglycemia Protocol Dextrose (Glutose 15) 0 gm PO ONCE PRN; Protocol PRN Reason: Hypoglycemia Protocol Glucagon (Glucagen Diagnostic Kit) 0 mg IM STAT PRN; Protocol PRN Reason: Hypoglycemia Protocol Heparin Sodium (Porcine) (Heparin) 5,000 units SC Q8 [facility] Last Admin: 12/01/17 05:24 Dose: 5,000 units Dextrose (Dextrose 5% In Water 1000 Ml) 1,000 mls @ 0 mls/hr IV .Q0M PRN; Protocol; Per Protocol PRN Reason: Hypoglycemia Protocol Cefepime HCl 1 gm/ Dextrose 50 mls @ 100 mls/hr IVPB Q12H [facility] PRN Reason: Protocol Last Admin: 12/01/17 04:23 Dose: 100 mls/hr Sodium Chloride (Sodium Chloride 0.9%) 1,000 mls @ 100 mls/hr IV .Q10H [facility] Last Admin: 12/01/17 09:28 Dose: 100 mls/hr Insulin Human Regular (Novolin R) 0 unit SC ACHS [facility] PRN Reason: Protocol Last Admin: 12/01/17 07:50 Dose: Not Given Levothyroxine Sodium (Synthroid) 75 mcg PO DAILY@0630 [facility] Last Admin: 12/01/17 06:16 Dose: 75 mcg Lisinopril (Zestril) 2.5 mg PO DAILY [facility] Last Admin: 11/30/17 11:00 Dose: 2.5 mg Metformin HCl (Glucophage) 1,000 mg PO BID [facility] Last Admin: 11/30/17 17:32 Dose: 1,000 mg Ondansetron HCl (Zofran Tab) 4 mg PO Q4H PRN PRN Reason: Nausea/Vomiting Last Admin: 11/29/17 05:08 Dose: 4 mg Rosuvastatin Calcium (Crestor) 5 mg PO HS [facility] Last Admin: 11/30/17 21:22 Dose: 5 mg - Labs Labs: 12/01/17 06:32 12/01/17 06:32 PT 13.1 SECONDS (9.7-12.2) H 11/27/17 06:44 INR 1.2 11/27/17 06:44 APTT 40 SECONDS (21-34) H 11/27/17 06:44 - Constitutional Appears: Well, Non-toxic, No Acute Distress - Extremities Exam Additional comments: Bilateral LE exam VASC: DP/PT pulses are palpable 2/4, Cap refill time: < 3 sec to all digits, Temp gradient: warm to cool from proximal to distal, localized non-pitting edema noted to the medial right forefoot DERM: Surgical incision at the distal medial forefoot s/p partial first ray am putation is well re-approximated with no dehiscence. Sutures intact without unraveling. Periwound is clean and dry, no maceration. minimal erythema, no increase in calor, no fluctanance, no abscess, no malodor, or active drainage noted, no clinical suspicion of active infection NEURO: Protective sensation mildly diminished, gross sensation intact ORTHO: mild-moderate pain on palpation of surrounding surgical site, 1-5 digits AROM present - Neurological Exam Neurological Exam: Alert, Awake, Oriented x3 - Psychiatric Exam Psychiatric exam: Normal Affect, Normal Mood Assessment and Plan - Assessment and Plan (Free Text) Assessment: 66 year old female evaluated for 4 days s/p right partial first ray amputation Plan: Patient seen and evaluated with attending Dr. Conn Labs, vitals and charts reviewed - afebrile, WBC 13.8 Pre-op X-rays of the foot ordered - Cortical teto erosion with periosteal teto reaction consistent with OM Pre-op MRI - Increase in signal intensity of the distal and proximal phalanx of the right hallux on a T2 image consistent with OM IDALIA/PVR ordered - R:1.18, L:1.13 with good waveform to the metatarsal, official read pending Pre-op right hallux wound cultures - Jocelin Reyes ID consult - recs appreciated - continue IV abx as per ID Surgical path (proximal margin) - report pending Intra-op wound cultures - no growth (Final) Cleansed surgical site with saline solution, dressed with xeroform, gauze, ABD, kerlix and light CATRACHO Allow WBAT to the heel using surgical shoe Will continue to monitor patient closely while in-house
--- NOTE | 2017-12-01 14:15 | US ---
Date of service: 12/01/2017 PROCEDURE: Ultrasound of the Kidneys HISTORY: [place]/ check for postvoid residual COMPARISON: None available. TECHNIQUE: Sonogram of the kidneys. FINDINGS: RIGHT KIDNEY: Measures: 4 x 4.2 x 10.6 cm. Normal in size, contour and echogenicity. No stone, solid mass lesion or hydronephrosis visualized. LEFT KIDNEY: Measures: 4.8 x 5.19.8 cm. Normal in size, contour and echogenicity. No stone, solid mass lesion or hydronephrosis visualized. OTHER FINDINGS: Urinary bladder assessment: Prevoid volume: Three hundred nineteen ml Postvoid residual: 0.0 ml Intrinsic, mural, perivesical abnormalities: None Ureteral jets: Documented bilaterally IMPRESSION: Unremarkable renal sonogram. Unremarkable urinary bladder with no visible, measurable postvoid residual.
[2017-12-01 14:48] LABS: COMPLEMENT C4 56.3 mg/dL (14.0-44.0)
[2017-12-01 15:17] LABS: HEPATITIS B SURFACE AG Negative (NEGATIVE)
[2017-12-01 15:22] LABS: HEPATITIS B CORE AB NEGATIVE (NEGATIVE)
[2017-12-01 15:34] LABS: HEPATITIS C ANTIBODY NEGATIVE (NEGATIVE)
--- NOTE | 2017-12-01 15:58 | CP.PCM.CON ---
History of Present Illness - History of Present Illness History of Present Illness: Nephrology Consultation Note: Assessment: Stable Acute Kidney Injury (N17.9) ? etiology Hyperkalemia Diabetic chronic Kidney Disease (E11.22) Hypertensive Chronic Kidney Disease (I12.9) Chronic Kidney Disease (N18.3) Stage 3 with ? mg proteinuria (R80.9) ? due to Anemia (D64.9), hypothyroidism toe infection with osteo s/p amputation Plan No acute need for renal replacement therapy at this time. Hypertension control with meds as ordered. Maintain hemodynamics stable. Avoid hypotension. Patient not on ACEI/ARB due to recent [place] and hyperkalemia Monitor Input/Output, daily weights and renal function with basic metabolic panel medical management with kayexyate as needed low K diet continue with IVF as NS Check urine analysis, spot protein/creatinine, albumin/creatinine ratio, renal sonogram Check HIV/Hep B and Hep C serology , c3/c4 Anemia work up with TSAT/Ferritin/Vitamin B12/folate, serum protein electrophoresis with immunofixation, serum free light chain assay ([place]/Lambda) Check for 25-OH vitamin D, iPTH, phosphorus level. Dose meds/antibiotics for reduced GFR. Avoid fleets enema/magnesium based laxatives. Avoid nephrotoxins/NSAIDs/ iodinated contrast (unless needed emergently) Glycemic control Further work up/management as per primary team Thanks for allowing me to participate in care of your patient. Will follow patient with you. Please call if any Qs Dr Peng Albrecht Office: [phone] Chief Complaint; none Reason for consult: Acute Kidney Injury HPI: Pt is a 66 F with hx of diabetes Mellitus (3 years), hypertension (years) hypothyroidism presented with complaints of toe infection and found to have osteo s/o toe amputation. renal consult for [place] and hyperkalemia pt not aware about kidney disease in past. she feels in usual health. baseline cr 0.9-1.1 Denies OTC/herbal meds or NSAIDs No recent iodinated contrast exposure. No obvious episodes of low BP. ROS: Cardiovascular: No chest pain. Pulmonary: No shortness of breath Gastrointestinal: denies abdominal pain No nausea. No vomiting. Genitourinary: No pain while urinating. Denies blood in urine. All other negative except as mentioned in HPI Physical Examination: General Appearance: Comfortable, in no acute respiratory distress, co-operative . Vitals reviewed and noted as below Head; Atraumatic, normocephalic ENT: no ulcers no thrush. Tongue is midline. Oropharynx: no rash or ulcers. EYES: Pupils are equal, round and reactive to light accommodation. Eye muscles and extraocular movement intact. Sclera is anicteric. Neck; supple no lymphadenopathy, no thyromegaly or bruit Lungs: Normal respiratory rate/effort. Breath sounds bilateral equal and clear Heart: Normal rate. s1s2 normal. No rub or gallop. Extremities: no edema. No varicose veins. Rt foot dressed Neurological: Patient is alert, awake and oriented to person, place and time. No focal deficit. Strength bilateral appropriate and equal Skin: Warm and dry. Normal turgor. No rash. Palpitation: Normal elasticity for age Abdomen: Abdomen is soft. Bowel sounds +. There is no abdominal tenderness, no guarding/rigidity no organomegaly Psych: normal insight and normal affect/mood MSK: no joint tenderness or swelling. Digits and nails normal, no deformity : kidney or bladder not palpable Labs/imaging reviewed. Past medical history, past surgical history, family history, social history, allergy reviewed and noted as below Family hx: no hx of CKD. Rest non-contributory work up Urine eos neg. no protein/blood echo 2017 WNL Past Patient History - Infectious Disease Hx of Infectious Diseases: None - Past Medical History & Family History Past Medical History?: Yes - Past Social History Smoking Status: Never Smoked - CARDIAC Hx Hypertension: Yes - PULMONARY Hx Respiratory Disorders: No - NEUROLOGICAL Hx Neurological Disorder: No - HEENT Hx HEENT Problems: No - RENAL Hx Chronic Kidney Disease: No - ENDOCRINE/METABOLIC Hx Hypothyroidism: Yes - HEMATOLOGICAL/ONCOLOGICAL Hx Blood Transfusions: No - INTEGUMENTARY Other/Comment: right big toe dry wound - MUSCULOSKELETAL/RHEUMATOLOGICAL Hx Falls: No - GASTROINTESTINAL Hx Gastrointestinal Disorders: No - GENITOURINARY/GYNECOLOGICAL Hx Genitourinary Disorders: No - PSYCHIATRIC Hx Substance Use: No - SURGICAL HISTORY Hx Appendectomy: Yes - ANESTHESIA Hx Anesthesia: Yes Hx Anesthesia Reactions: No Meds Allergies/Adverse Reactions: Allergies Allergy/AdvReac Type Severity Reaction Status Date / Time No Known Allergies Allergy Verified 02/14/17 08:16 - Medications Medications: Current Medications Acetaminophen (Tylenol 325mg Tab) 650 mg PO Q6 PRN PRN Reason: Pain, Mild (1-3) Last Admin: 11/30/17 16:10 Dose: 650 mg Amlodipine Besylate (Norvasc) 10 mg PO DAILY [facility] Last Admin: 12/01/17 09:28 Dose: 10 mg Dextrose (Dextrose 50% Inj) 0 ml IV STAT PRN; Protocol PRN Reason: Hypoglycemia Protocol Dextrose (Glutose 15) 0 gm PO ONCE PRN; Protocol PRN Reason: Hypoglycemia Protocol Glucagon (Glucagen Diagnostic Kit) 0 mg IM STAT PRN; Protocol PRN Reason: Hypoglycemia Protocol Heparin Sodium (Porcine) (Heparin) 5,000 units SC Q8 [facility] Last Admin: 12/01/17 14:27 Dose: 5,000 units Dextrose (Dextrose 5% In Water 1000 Ml) 1,000 mls @ 0 mls/hr IV .Q0M PRN; Protocol; Per Protocol PRN Reason: Hypoglycemia Protocol Cefepime HCl 1 gm/ Dextrose 50 mls @ 100 mls/hr IVPB Q12H [facility] PRN Reason: Protocol Last Admin: 12/01/17 04:23 Dose: 100 mls/hr Sodium Chloride (Sodium Chloride 0.9%) 1,000 mls @ 100 mls/hr IV .Q10H [facility] Last Admin: 12/01/17 09:28 Dose: 100 mls/hr Insulin Human Regular (Novolin R) 0 unit SC ACHS [facility] PRN Reason: Protocol Last Admin: 12/01/17 13:46 Dose: Not Given Levothyroxine Sodium (Synthroid) 75 mcg PO DAILY@0630 [facility] Last Admin: 12/01/17 06:16 Dose: 75 mcg Lisinopril (Zestril) 2.5 mg PO DAILY [facility] Last Admin: 11/30/17 11:00 Dose: 2.5 mg Metformin HCl (Glucophage) 1,000 mg PO BID [facility] Last Admin: 11/30/17 17:32 Dose: 1,000 mg Ondansetron HCl (Zofran Tab) 4 mg PO Q4H PRN PRN Reason: Nausea/Vomiting Last Admin: 11/29/17 05:08 Dose: 4 mg Rosuvastatin Calcium (Crestor) 5 mg PO HS [facility] Last Admin: 11/30/17 21:22 Dose: 5 mg Results - Vital Signs Recent Vital Signs: Last Vital Signs Temp 98.5 F 12/01/17 08:11 Pulse 67 12/01/17 08:11 Resp 20 12/01/17 08:11 BP 122/64 12/01/17 08:11 Pulse Ox 98 12/01/17 08:11 - Labs Result Diagrams: 12/01/17 06:32 12/01/17 06:32 Labs: Laboratory Results - last 24 hr 11/30/17 11/30/17 11/30/17 16:16 20:20 21:00 WBC RBC Hgb Hct MCV MCH MCHC RDW Plt Count MPV Neut % (Auto) Lymph % (Auto) [place] % (Auto) Eos % (Auto) Baso % (Auto) Neut # (Auto) Lymph # (Auto) [place] # (Auto) Eos # (Auto) Baso # (Auto) Sodium Potassium Chloride Carbon Dioxide Anion Gap BUN Creatinine Est GFR ( Amer) Est GFR (Non-Af Amer) POC Glucose (mg/dL) 131 H 120 H Random Glucose Calcium Phosphorus Magnesium Total Bilirubin AST ALT Alkaline Phosphatase Total Protein Albumin Globulin Albumin/Globulin Ratio Urine Eosinophils Negative Complement C3 Complement C4 Hep Bs Antigen Hep Bs Antibody Hep B Core IgM Ab Hepatitis C Antibody HIV 1&2 Antibody Screen 12/01/17 12/01/17 12/01/17 06:32 06:32 14:14 WBC 13.8 H RBC 2.89 L Hgb 8.2 L Hct 24.6 L MCV 84.9 MCH 28.4 MCHC 33.4 RDW 13.8 Plt Count 552 H MPV 7.1 L Neut % (Auto) 67.5 Lymph % (Auto) 21.7 [place] % (Auto) 6.4 Eos % (Auto) 3.6 Baso % (Auto) 0.8 Neut # (Auto) 9.3 H Lymph # (Auto) 3.0 [place] # (Auto) 0.9 H Eos # (Auto) 0.5 Baso # (Auto) 0.1 Sodium 138 Potassium 5.6 H Chloride 101 Carbon Dioxide 25 Anion Gap 18 BUN 23 H Creatinine 1.3 H Est GFR ( Amer) 50 Est GFR (Non-Af Amer) 41 POC Glucose (mg/dL) Random Glucose 125 H Calcium 9.5 Phosphorus 4.0 Magnesium 2.2 Total Bilirubin 0.2 AST 55 H D ALT 32 Alkaline Phosphatase 325 H Total Protein 8.1 Albumin 3.8 Globulin 4.3 H Albumin/Globulin Ratio 0.9 L Urine Eosinophils Complement C3 Complement C4 Hep Bs Antigen Negative Hep Bs Antibody Hep B Core IgM Ab Negative Hepatitis C Antibody Negative HIV 1&2 Antibody Screen 12/01/17 12/01/17 12/01/17 14:14 14:14 14:14 WBC RBC Hgb Hct MCV MCH MCHC RDW Plt Count MPV Neut % (Auto) Lymph % (Auto) [place] % (Auto) Eos % (Auto) Baso % (Auto) Neut # (Auto) Lymph # (Auto) [place] # (Auto) Eos # (Auto) Baso # (Auto) Sodium Potassium Chloride Carbon Dioxide Anion Gap BUN Creatinine Est GFR ( Amer) Est GFR (Non-Af Amer) POC Glucose (mg/dL) Random Glucose Calcium Phosphorus Magnesium Total Bilirubin AST ALT Alkaline Phosphatase Total Protein Albumin Globulin Albumin/Globulin Ratio Urine Eosinophils Complement C3 164.0 Complement C4 56.3 H Hep Bs Antigen Hep Bs Antibody Negative Hep B Core IgM Ab Hepatitis C Antibody HIV 1&2 Antibody Screen Negative
--- NOTE | 2017-12-01 18:18 | CP.PCM.PN ---
Subjective - Date & Time of Evaluation Date of Evaluation: 12/01/17 Time of Evaluation: 13:35 - Subjective Subjective: PGY-[address] Spencer service Patient is seen and examined at bedside. Patient is s/p right hallux amputation , POD #4. reports no acute event overnights and is no acute distress. Patient experiences some pain in right leg, but it is controlled with pain medications. Patient states not having too much apetite and eating not as much. Patient has been able to get out of bed with help. Patient denies fever, chills, nausea, vomiting, chest pain, sob. Patient admits to mild headaches. Patient denies dysuria and report having normal bowel movements. Objective - Vital Signs/Intake and Output Vital Signs (last 24 hours): Temp Pulse Resp BP Pulse Ox 99.2 F 71 20 126/60 96 12/01/17 16:00 12/01/17 16:00 12/01/17 16:00 12/01/17 16:00 12/01/17 16:00 Intake and Output: 12/01/17 12/01/17 06:59 18:59 Intake Total 800 Balance 800 - Medications Medications: Current Medications Acetaminophen (Tylenol 325mg Tab) 650 mg PO Q6 PRN PRN Reason: Pain, Mild (1-3) Last Admin: 11/30/17 16:10 Dose: 650 mg Amlodipine Besylate (Norvasc) 10 mg PO DAILY [facility] Last Admin: 12/01/17 09:28 Dose: 10 mg Dextrose (Dextrose 50% Inj) 0 ml IV STAT PRN; Protocol PRN Reason: Hypoglycemia Protocol Dextrose (Glutose 15) 0 gm PO ONCE PRN; Protocol PRN Reason: Hypoglycemia Protocol Glucagon (Glucagen Diagnostic Kit) 0 mg IM STAT PRN; Protocol PRN Reason: Hypoglycemia Protocol Heparin Sodium (Porcine) (Heparin) 5,000 units SC Q8 [facility] Last Admin: 12/01/17 14:27 Dose: 5,000 units Dextrose (Dextrose 5% In Water 1000 Ml) 1,000 mls @ 0 mls/hr IV .Q0M PRN; Protocol; Per Protocol PRN Reason: Hypoglycemia Protocol Cefepime HCl 1 gm/ Dextrose 50 mls @ 100 mls/hr IVPB Q12H [facility] PRN Reason: Protocol Last Admin: 12/01/17 17:40 Dose: 100 mls/hr Sodium Chloride (Sodium Chloride 0.9%) 1,000 mls @ 100 mls/hr IV .Q10H [facility] Last Admin: 12/01/17 09:28 Dose: 100 mls/hr Insulin Human Regular (Novolin R) 0 unit SC ACHS [facility] PRN Reason: Protocol Last Admin: 12/01/17 17:40 Dose: Not Given Levothyroxine Sodium (Synthroid) 75 mcg PO DAILY@0630 [facility] Last Admin: 12/01/17 06:16 Dose: 75 mcg Lisinopril (Zestril) 2.5 mg PO DAILY [facility] Last Admin: 11/30/17 11:00 Dose: 2.5 mg Metformin HCl (Glucophage) 1,000 mg PO BID [facility] Last Admin: 11/30/17 17:32 Dose: 1,000 mg Ondansetron HCl (Zofran Tab) 4 mg PO Q4H PRN PRN Reason: Nausea/Vomiting Last Admin: 11/29/17 05:08 Dose: 4 mg Rosuvastatin Calcium (Crestor) 5 mg PO HS [facility] Last Admin: 11/30/17 21:22 Dose: 5 mg - Labs Labs: 12/01/17 06:32 12/01/17 06:32 PT 13.1 SECONDS (9.7-12.2) H 11/27/17 06:44 INR 1.2 11/27/17 06:44 APTT 40 SECONDS (21-34) H 11/27/17 06:44 - Constitutional Appears: Non-toxic, No Acute Distress - Head Exam Head Exam: ATRAUMATIC, NORMAL INSPECTION, NORMOCEPHALIC - Eye Exam Eye Exam: EOMI, Normal appearance - ENT Exam ENT Exam: Mucous Membranes Moist, Normal Exam - Neck Exam Neck Exam: Full ROM, Normal Inspection - Respiratory Exam Respiratory Exam: Clear to Ausculation Bilateral, NORMAL BREATHING PATTERN. absent: Accessory Muscle Use, Respiratory Distress - Cardiovascular Exam Cardiovascular Exam: REGULAR RHYTHM, +S1, +S2 - GI/Abdominal Exam GI & Abdominal Exam: Soft, Normal Bowel Sounds. absent: Distended, Guarding, Tenderness - Extremities Exam Extremities Exam: absent: Tenderness Additional comments: Dressing on Rt foot, clean, dry and intact, right leg slightly tender on palpation, mildly warm, Full Active ROM, no erythema. - Back Exam Back Exam: Full ROM, NORMAL INSPECTION - Neurological Exam Neurological Exam: Alert, Awake, Oriented x3 - Psychiatric Exam Psychiatric exam: Normal Affect, Normal Mood - Skin Skin Exam: Intact, Normal Color, Warm Assessment and Plan - Assessment and Plan (Free Text) Plan: Osteomyelitis R hallux S/p R hallux amputation, pod #4 -12/01 -- WBC 13.8 - Vitals - within normal limits -Podiatry (Dr. Conn) recs appreciated -Imaging: ---XR foot: Cortical teto erosion with periosteal teto reaction consistent with OM ---MRI foot (11/24/) - Summary, see full report for details: Soft tissue/ abcess seen at level of 1st distal phalanx 1.6x1.8 cm - increased STIR signal suggestive of osteomyelitis. Focal signal abnormality seen within the medial sesamoid bone - infections/inflammatory changes cannot be excluded. Possible low grade sprain of Lisfranc ligament. 2nd metatarsal, middle cuneiform, and lateral cuneiform - probable degenerative change, however superimposed acute infection cannot be excluded. ---CXR (11/24): No active disease ---Cleansed surgical site with saline solution, dressed with xeroform , gauze, ABD, kerlix and light CATRACHO Allow WBAT to the heel using surgical shoe. WIll continue to monitor patient closely while in house -Right hallux wound cultures: Ss Morganii, Sensitive to Meropenem (LUCIE <0.25) - Intra-op wound cultures - no growth in 24 hours - will continue to follow up -f/u ID (Dr. Johnson) recs -Pt on Zosyn (day #7). PICC not indicated at this time. Pt requires one more full week of ABx (planned end 12/02). Pt to remain hospitalized while receving IV Abx Medications: -Cefepime 1gm IVPB Q12 (started 11/30), day #1 F/u am labs ACUTE RENAL FAILURE - 12/01 BUN/Cr : 01/04.3 - Consult placed for Nephrology - Dr Levi Albrecht, recs is appreciated -- will follow recs - no acute need for renal replacement therapy at this time - Patient not on ACEi/ARB due to hyperkalemia and [place] - Monitor I/O - low K diet - check U/A, spot protein/creatinine, albumin/creatinine ratio, renal sonogram - check HIV/hep B and Hep C serology, c3, c4 - TSAT/Ferritin, Vit B12/folate serum protein electrophoresis with immunofixation, serum free light chain assay ([place]/Lambda) -Check for 25-OH vitamin D, iPTH, phosphorus level. - Dose meds/antibiotics for reduced GFR. Avoid fleets enema/ magnesium based laxatives. Avoid nephrotoxins/NSAIDs/ iodinated contrast ( unless needed emergently) DM -random glucose -HbA1C 7.6 -ISS -hypoglycemic protocol -continue home medication: -Metformin 1000 mg PO BID held HTN -continue home meds: -Norvasc 10 mg PO daily -Lisinopril 2.5 mg PO daily, Held Hyperkalemia -Potassium 12/01 -- 5.6 - Started KayeXALATE susp 15 gm PO x 1 - f/u am labs tomorrow Hx of Hypothyroidism -continue home med: -Synthroid 75 mcg PO daily PPx, Diet, Disposition -DVT ppx: heparin 5000 Units sc q8 -Diabetic diet - NS @ 100 mls/hr Plan discussed with Dr Johanna Savage, PGY-1
[2017-12-02] MEDS: Levothyroxine 75 MCG TAB PO SCH (06:00)
[2017-12-02] MEDS: Sodium Chloride 0.9% 1,000 ML IV SCH ×2 (06:02→13:58)
[2017-12-02 06:59] LABS: IRON 24 ug/dL (37-170)
[2017-12-02 07:01] LABS: BLOOD UREA NITROGEN 17 mg/dL (7-17); CALCIUM 9.3 mg/dl (8.6-10.4); GFR NON-AFRICAN AMERICAN > 60
[2017-12-02 07:05] LABS: BASO # 0.1 K/uL (0.0-0.2); EOS # 0.4 K/uL (0.0-0.7); EOS % 3.5 % (0.0-4.0); HEMOGLOBIN 7.9 g/dL (11.0-16.0); LYMPH # 3.3 K/uL (1.0-4.3); LYMPH % 26.3 % (20.0-40.0); MEAN CELL VOLUME 85.7 fL (81.0-99.0); MEAN CORPUSCULAR HEMOGLOBIN 28.1 pg (27.0-31.0); MEAN CORPUSCULAR HGB CONC 32.8 g/dL (33.0-37.0); MEAN PLATELET VOLUME 7.4 fL (7.2-11.7); MONO # 0.7 K/uL (0.0-0.8); MONO % 5.9 % (0.0-10.0); NEUT # 7.8 K/uL (1.8-7.0); NEUT % 63.3 % (50.0-75.0); RBC 2.8 Mil/uL (3.80-5.20); RED CELL DISTRIBUTION WIDTH 13.9 % (11.5-14.5); WHITE BLOOD COUNT 12.4 K/uL (4.8-10.8)
[2017-12-02 07:08] LABS: % IRON SATURATION 10 (20-55); TOTAL IRON BINDING CAPACITY 243 ug/dL (250-450)
[2017-12-02] MEDS: (Novolin R) Insulin Human Regular 100 units/ml vial SC SCH ×2 (07:57→12:10)
--- NOTE | 2017-12-02 11:09 | CP.PCM.PN ---
Subjective - Date & Time of Evaluation Date of Evaluation: 12/02/17 Time of Evaluation: 11:08 - Subjective Subjective: Nephrology Consultation Note: Assessment: Stable Acute Kidney Injury (N17.9) ? etiology: improved with IVF Hyperkalemia Diabetic chronic Kidney Disease (E11.22) Hypertensive Chronic Kidney Disease (I12.9) Chronic Kidney Disease (N18.3) Stage 3 with ? mg proteinuria (R80.9) ? due to Anemia (D64.9), hypothyroidism toe infection with osteo s/p amputation VIt D def Plan No acute need for renal replacement therapy at this time. Hypertension control with meds as ordered. Maintain hemodynamics stable. Avoid hypotension. Patient not on ACEI/ARB due to recent [place] and hyperkalemia Monitor Input/Output, daily weights and renal function with basic metabolic panel medical management with kayexyate as needed low K diet continue with IVF as NS started iron MVI and weekly Vit D consider further GI work up for iron def anemia Check urine analysis, spot protein/creatinine, albumin/creatinine ratio, renal sonogram Check HIV/Hep B and Hep C serology , c3/c4 Anemia work up with TSAT/Ferritin/Vitamin B12/folate, serum protein electroph oresis with immunofixation, serum free light chain assay ([place]/Lambda) Check for 25-OH vitamin D, iPTH, phosphorus level. Dose meds/antibiotics for improved GFR. Glycemic control Further work up/management as per primary team Thanks for allowing me to participate in care of your patient. Will follow patient with you. Please call if any Qs. had d/w team Dr Peng Albrecht Office: [phone] Chief Complaint; none Reason for consult: Acute Kidney Injury HPI: Pt is a 66 F with hx of diabetes Mellitus (3 years), hypertension (years) hypothyroidism presented with complaints of toe infection and found to have osteo s/o toe amputation. renal consult for [place] and hyperkalemia pt not aware about kidney disease in past. she feels in usual health. baseline cr 0.9-1.1 Denies OTC/herbal meds or NSAIDs No recent iodinated contrast exposure. No obvious episodes of low BP. ROS: Cardiovascular: No chest pain. Pulmonary: No shortness of breath Gastrointestinal: denies abdominal pain No nausea. No vomiting. Genitourinary: No pain while urinating. Denies blood in urine. All other negative except as mentioned in HPI Physical Examination: General Appearance: Comfortable, in no acute respiratory distress, co-operative . Vitals reviewed and noted as below Head; Atraumatic, normocephalic ENT: no ulcers no thrush. Tongue is midline. Oropharynx: no rash or ulcers. EYES: Pupils are equal, round and reactive to light accommodation. Eye muscles and extraocular movement intact. Sclera is anicteric. Neck; supple no lymphadenopathy, no thyromegaly or bruit Lungs: Normal respiratory rate/effort. Breath sounds bilateral equal and clear Heart: Normal rate. s1s2 normal. No rub or gallop. Extremities: no edema. No varicose veins. Rt foot dressed Neurological: Patient is alert, awake and oriented to person, place and time. No focal deficit. Strength bilateral appropriate and equal Skin: Warm and dry. Normal turgor. No rash. Palpitation: Normal elasticity for age Abdomen: Abdomen is soft. Bowel sounds +. There is no abdominal tenderness, no guarding/rigidity no organomegaly Psych: normal insight and normal affect/mood MSK: no joint tenderness or swelling. Digits and nails normal, no deformity : kidney or bladder not palpable Labs/imaging reviewed. Past medical history, past surgical history, family history, social history, allergy reviewed and noted as below Family hx: no hx of CKD. Rest non-contributory work up Urine eos neg. no protein/blood echo 2017 WNL Objective - Vital Signs/Intake and Output Vital Signs (last 24 hours): Temp Pulse Resp BP Pulse Ox 97.8 F 62 20 144/63 98 12/02/17 08:01 12/02/17 08:01 12/02/17 08:01 12/02/17 08:01 12/02/17 08:01 Intake and Output: 12/02/17 12/02/17 06:59 18:59 Intake Total 1050 1050 Balance 1050 1050 - Medications Medications: Current Medications Acetaminophen (Tylenol 325mg Tab) 650 mg PO Q6 PRN PRN Reason: Pain, Mild (1-3) Last Admin: 11/30/17 16:10 Dose: 650 mg Amlodipine Besylate (Norvasc) 10 mg PO DAILY [facility] Last Admin: 12/02/17 09:16 Dose: 10 mg Dextrose (Dextrose 50% Inj) 0 ml IV STAT PRN; Protocol PRN Reason: Hypoglycemia Protocol Dextrose (Glutose 15) 0 gm PO ONCE PRN; Protocol PRN Reason: Hypoglycemia Protocol Glucagon (Glucagen Diagnostic Kit) 0 mg IM STAT PRN; Protocol PRN Reason: Hypoglycemia Protocol Heparin Sodium (Porcine) (Heparin) 5,000 units SC Q8 [facility] Last Admin: 12/02/17 06:00 Dose: 5,000 units Dextrose (Dextrose 5% In Water 1000 Ml) 1,000 mls @ 0 mls/hr IV .Q0M PRN; Protocol PRN Reason: Hypoglycemia Protocol Cefepime HCl 1 gm/ Dextrose 50 mls @ 100 mls/hr IVPB Q12H [facility]; Protocol Last Admin: 12/02/17 05:00 Dose: 100 mls/hr Sodium Chloride (Sodium Chloride 0.9%) 1,000 mls @ 100 mls/hr IV .Q10H [facility] Last Admin: 12/02/17 06:02 Dose: Not Given Insulin Human Regular (Novolin R) 0 unit SC ACHS [facility]; Protocol Last Admin: 12/02/17 07:57 Dose: Not Given Levothyroxine Sodium (Synthroid) 75 mcg PO DAILY@0630 [facility] Last Admin: 12/02/17 06:00 Dose: 75 mcg Lisinopril (Zestril) 2.5 mg PO DAILY [facility] Last Admin: 11/30/17 11:00 Dose: 2.5 mg Metformin HCl (Glucophage) 1,000 mg PO BID [facility] Last Admin: 11/30/17 17:32 Dose: 1,000 mg Ondansetron HCl (Zofran Tab) 4 mg PO Q4H PRN PRN Reason: Nausea/Vomiting Last Admin: 11/29/17 05:08 Dose: 4 mg Rosuvastatin Calcium (Crestor) 5 mg PO HS [facility] Last Admin: 12/01/17 21:40 Dose: 5 mg - Labs Labs: 12/02/17 06:23 12/02/17 06:23 PT 13.1 SECONDS (9.7-12.2) H 11/27/17 06:44 INR 1.2 11/27/17 06:44 APTT 40 SECONDS (21-34) H 11/27/17 06:44
[2017-12-02] MEDS ORDERED: Ergocalciferol 50,000 Intl Units Cap PO SCH (12:45)
[2017-12-02 13:47] LABS: SQUAMOUS EPITHIAL < 1 /hpf (0-5); URINE BILIRUBIN NEGATIVE (NEGATIVE); URINE BLOOD NEGATIVE (NEGATIVE); URINE CLARITY Clear (Clear); URINE COLOR Straw (YELLOW); URINE GLUCOSE (UA) NORMAL (Normal); URINE LEUKOCYTE ESTERASE NEG Leu/uL (Negative); URINE PROTEIN NEGATIVE (NEGATIVE); URINE UROBILINOGEN NORMAL mg/dL (0.2-1.0)
--- NOTE | 2017-12-02 16:41 | CP.PCM.PN ---
Subjective - Date & Time of Evaluation Date of Evaluation: 12/02/17 Time of Evaluation: 16:37 - Subjective Subjective: Podiatry Progress Note: Dr. Conn 66 year old female seen and evaluated bedside 5 days s/p partial first ray amputation. Patient is AAOx3, in NAD. Denies acute overnight events. Patient reports that she is feeling better. Dressing clean, dry and intact. Denies of having F/N/V/C/SOB/CP/headache. No other pedal complains at this time. Objective - Vital Signs/Intake and Output Vital Signs (last 24 hours): Temp Pulse Resp BP Pulse Ox 97.8 F 62 20 144/63 98 12/02/17 08:01 12/02/17 08:01 12/02/17 08:01 12/02/17 08:01 12/02/17 08:01 Intake and Output: 12/02/17 12/02/17 06:59 18:59 Intake Total 1050 2150 Balance 1050 2150 - Medications Medications: Current Medications Acetaminophen (Tylenol 325mg Tab) 650 mg PO Q6 PRN PRN Reason: Pain, Mild (1-3) Last Admin: 12/02/17 14:51 Dose: 650 mg Amlodipine Besylate (Norvasc) 10 mg PO DAILY [facility] Last Admin: 12/02/17 09:16 Dose: 10 mg Dextrose (Dextrose 50% Inj) 0 ml IV STAT PRN; Protocol PRN Reason: Hypoglycemia Protocol Dextrose (Glutose 15) 0 gm PO ONCE PRN; Protocol PRN Reason: Hypoglycemia Protocol Ergocalciferol (Drisdol 50,000 Intl Units Cap) 1 cap PO Q7D [facility] Last Admin: 12/02/17 13:23 Dose: 1 cap Ferrous Gluconate (Fergon) 324 mg PO TID [facility] Last Admin: 12/02/17 14:02 Dose: 324 mg Glucagon (Glucagen Diagnostic Kit) 0 mg IM STAT PRN; Protocol PRN Reason: Hypoglycemia Protocol Heparin Sodium (Porcine) (Heparin) 5,000 units SC Q8 [facility] Last Admin: 12/02/17 13:32 Dose: 5,000 units Dextrose (Dextrose 5% In Water 1000 Ml) 1,000 mls @ 0 mls/hr IV .Q0M PRN; Protocol PRN Reason: Hypoglycemia Protocol Cefepime HCl 1 gm/ Dextrose 50 mls @ 100 mls/hr IVPB Q12H [facility]; Protocol Last Admin: 12/02/17 05:00 Dose: 100 mls/hr Sodium Chloride (Sodium Chloride 0.9%) 1,000 mls @ 100 mls/hr IV .Q10H [facility] Last Admin: 12/02/17 13:58 Dose: Not Given Insulin Human Regular (Novolin R) 0 unit SC ACHS [facility]; Protocol Last Admin: 12/02/17 12:10 Dose: 2 units Levothyroxine Sodium (Synthroid) 75 mcg PO DAILY@0630 [facility] Last Admin: 12/02/17 06:00 Dose: 75 mcg Lisinopril (Zestril) 2.5 mg PO DAILY [facility] Last Admin: 11/30/17 11:00 Dose: 2.5 mg Metformin HCl (Glucophage) 1,000 mg PO BID [facility] Last Admin: 11/30/17 17:32 Dose: 1,000 mg Ondansetron HCl (Zofran Tab) 4 mg PO Q4H PRN PRN Reason: Nausea/Vomiting Last Admin: 11/29/17 05:08 Dose: 4 mg Rosuvastatin Calcium (Crestor) 5 mg PO HS [facility] Last Admin: 12/01/17 21:40 Dose: 5 mg Vitamin B Complex/Vit C/Folic Acid (Nephro-Lizet) 1 tab PO 0800 [facility] - Labs Labs: 12/02/17 06:23 12/02/17 06:23 PT 13.1 SECONDS (9.7-12.2) H 11/27/17 06:44 INR 1.2 11/27/17 06:44 APTT 40 SECONDS (21-34) H 11/27/17 06:44 - Constitutional Appears: Well, Non-toxic, No Acute Distress - Extremities Exam Additional comments: Bilateral LE exam VASC: DP/PT pulses are palpable 2/4, Cap refill time: < 3 sec to all digits, Temp gradient: warm to cool from proximal to distal, localized non-pitting edema noted to the medial right forefoot DERM: Surgical incision at the distal medial forefoot s/p partial first ray amputation is well re-approximated with no dehiscence. Sutures intact without unraveling. Periwound is clean and dry, no maceration. minimal erythema, no increase in calor, no fluctanance, no abscess, no malodor, or active drainage noted, no clinical suspicion of active infection NEURO: Protective sensation mildly diminished, gross sensation intact ORTHO: mild-moderate pain on palpation of surrounding surgical site, 1-5 digits AROM present - Neurological Exam Neurological Exam: Alert, Awake, Oriented x3 - Psychiatric Exam Psychiatric exam: Normal Affect, Normal Mood Assessment and Plan - Assessment and Plan (Free Text) Assessment: 66 year old female evaluated for 5 days s/p right partial first ray amputation Plan: Patient seen and evaluated Discussed plan with attending Dr. Conn Labs, vitals and charts reviewed - afebrile, WBC 12.4 Pre-op X-rays of the foot ordered - Cortical teto erosion with periosteal teto reaction consistent with OM Pre-op MRI - Increase in signal intensity of the distal and proximal phalanx of the right hallux on a T2 image consistent with OM IDALIA/PVR ordered - R:1.18, L:1.13 with good waveform to the metatarsal, official read pending Pre-op right hallux wound cultures - Jocelin Reyes ID consult - recs appreciated - continue IV abx as per ID Surgical path (proximal margin) - no OM Intra-op wound cultures - no growth (Final) Cleansed surgical site with saline solution, dressed with xeroform, gauze, ABD, kerlix and light CATRACHO Allow WBAT to the heel using surgical shoe Stable from podiatry standpoint Upon discharge, please follow up with Dr. Conn in his office Will continue to monitor patient closely while in-house
[2017-12-02 16:44] VITALS: BP 146/62; PULSE 71; TEMP 98.9; O2SAT 97
--- NOTE | 2017-12-02 22:29 | CP.PCM.DIS ---
Provider - Provider Date of Admission: 11/24/17 12:42 Attending physician: Maurisio Gupta DO Time Spent in preparation of Discharge (in minutes): 180 Diagnosis - Discharge Diagnosis (1) Osteomyelitis Status: Acute (2) Toe ulcer due to DM Status: Acute Hospital Course - Lab Results Lab Results: Micro Results 11/27/17 12:11 Foot - Right Gram Stain - Final 11/27/17 12:11 Foot - Right Wound Culture - Final No growth. 11/24/17 12:50 Blood Blood Culture - Final NO GROWTH AFTER 5 DAYS 11/24/17 12:50 Blood Gram Stain - Final TEST NOT PERFORMED 11/24/17 13:20 Blood Blood Culture - Final NO GROWTH AFTER 5 DAYS 11/24/17 13:20 Blood Gram Stain - Final TEST NOT PERFORMED 11/24/17 10:37 Toe Gram Stain - Final 11/24/17 10:37 Toe Wound Culture - Final Morg Morganii Ss Morganii Most Recent Lab Values WBC 12.4 K/uL (4.8-10.8) H 12/02/17 06:23 RBC 2.80 Mil/uL (3.80-5.20) L 12/02/17 06:23 Hgb 7.9 g/dL (11.0-16.0) L 12/02/17 06:23 Hct 24.0 % (34.0-47.0) L 12/02/17 06:23 MCV 85.7 fL (81.0-99.0) 12/02/17 06:23 MCH 28.1 pg (27.0-31.0) 12/02/17 06:23 MCHC 32.8 g/dL (33.0-37.0) L 12/02/17 06:23 RDW 13.9 % (11.5-14.5) 12/02/17 06:23 Plt Count 547 K/uL (130-400) H 12/02/17 06:23 MPV 7.4 fL (7.2-11.7) 12/02/17 06:23 Neut % (Auto) 63.3 % (50.0-75.0) 12/02/17 06:23 Lymph % (Auto) 26.3 % (20.0-40.0) 12/02/17 06:23 [place] % (Auto) 5.9 % (0.0-10.0) 12/02/17 06:23 Eos % (Auto) 3.5 % (0.0-4.0) 12/02/17 06:23 Baso % (Auto) 1.0 % (0.0-2.0) 12/02/17 06:23 Neut # (Auto) 7.8 K/uL (1.8-7.0) H 12/02/17 06:23 Lymph # (Auto) 3.3 K/uL (1.0-4.3) 12/02/17 06:23 [place] # (Auto) 0.7 K/uL (0.0-0.8) 12/02/17 06:23 Eos # (Auto) 0.4 K/uL (0.0-0.7) 12/02/17 06:23 Baso # (Auto) 0.1 K/uL (0.0-0.2) 12/02/17 06:23 ESR 129 mm/hr (0-20) H 11/24/17 10:37 PT 13.1 SECONDS (9.7-12.2) H 11/27/17 06:44 INR 1.2 11/27/17 06:44 APTT 40 SECONDS (21-34) H 11/27/17 06:44 Sodium 141 mmol/L (132-148) 12/02/17 06:23 Potassium 4.9 mmol/L (3.6-5.2) 12/02/17 06:23 Chloride 106 mmol/L (98-107) 12/02/17 06:23 Carbon Dioxide 26 mmol/L (22-30) 12/02/17 06:23 Anion Gap 14 (10-20) 12/02/17 06:23 BUN 17 mg/dL (7-17) 12/02/17 06:23 Creatinine 0.9 mg/dL (0.7-1.2) 12/02/17 06:23 Est GFR ( Amer) > 60 12/02/17 06:23 Est GFR (Non-Af Amer) > 60 12/02/17 06:23 POC Glucose (mg/dL) 128 mg/dL (65-110) H 12/02/17 16:19 Random Glucose 132 mg/dL (65-105) H 12/02/17 06:23 Hemoglobin A1c 7.6 % (4.2-6.5) H 11/24/17 19:46 Calcium 9.3 mg/dl (8.6-10.4) 12/02/17 06:23 Phosphorus 4.0 mg/dL (2.5-4.5) 12/01/17 06:32 Magnesium 2.2 mg/dL (1.6-2.3) 12/01/17 06:32 Iron 24 ug/dL (37-170) L 12/02/17 06:23 TIBC 243 ug/dL (250-450) L 12/02/17 06:23 % Saturation 10 (20-55) L 12/02/17 06:23 Ferritin 155.0 ng/mL 12/02/17 06:23 Total Bilirubin 0.2 mg/dL (0.2-1.3) 12/01/17 06:32 AST 55 U/L (14-36) H D 12/01/17 06:32 ALT 32 U/L (9-52) 12/01/17 06:32 Alkaline Phosphatase 325 U/L (38-126) H 12/01/17 06:32 Total Protein 8.1 g/dL (6.3-8.3) 12/01/17 06:32 Albumin 3.8 g/dL (3.5-5.0) 12/01/17 06:32 Globulin 4.3 gm/dL (2.2-3.9) H 12/01/17 06:32 Albumin/Globulin Ratio 0.9 (1.0-2.1) L 12/01/17 06:32 25-OH Vitamin D Total 19.4 NG/ML (30.0-100.0) L 12/02/17 06:23 PTH Intact Whole Molec 31 pg/mL (14-64) 12/01/17 14:14 Urine Color Straw (YELLOW) 12/02/17 13:11 Urine Clarity Clear (Clear) 12/02/17 13:11 Urine pH 6.0 (5.0-8.0) 12/02/17 13:11 Ur Specific [place] 1.010 (1.003-1.030) 12/02/17 13:11 Urine Protein Negative mg/dL (NEGATIVE) 12/02/17 13:11 Urine Glucose (UA) Normal mg/dL (Normal) 12/02/17 13:11 Urine Ketones Negative mg/dL (NEGATIVE) 12/02/17 13:11 Urine Blood Negative (NEGATIVE) 12/02/17 13:11 Urine Nitrate Negative (NEGATIVE) 12/02/17 13:11 Urine Bilirubin Negative (NEGATIVE) 12/02/17 13:11 Urine Urobilinogen Normal mg/dL (0.2-1.0) 12/02/17 13:11 Ur Leukocyte Esterase Neg [place]/uL (Negative) 12/02/17 13:11 Urine WBC (Auto) < 1 /hpf (0-5) 12/02/17 13:11 Ur Squamous Epith Cells < 1 /hpf (0-5) 12/02/17 13:11 Urine Eosinophils Negative (NEGATIVE) 11/30/17 20:20 Complement C3 164.0 mg/dL (88.0-165.0) 12/01/17 14:14 Complement C4 56.3 mg/dL (14.0-44.0) H 12/01/17 14:14 Hep Bs Antigen Negative (NEGATIVE) 12/01/17 14:14 Hep Bs Antibody Negative (NEGATIVE) 12/01/17 14:14 Hep B Core IgM Ab Negative (NEGATIVE) 12/01/17 14:14 Hepatitis C Antibody Negative (NEGATIVE) 12/01/17 14:14 HIV 1&2 Antibody Screen Negative (NEGATIVE) 12/01/17 14:14 Blood Type O POSITIVE 11/24/17 19:46 Antibody Screen Negative 11/24/17 19:46 - Hospital Course Hospital Course: On admission: Patient is a 66 yo F with PMHx of DM, HTN, hypothyroidism, and anemia who presents to the ED with worsening R toe pain and swelling since last Friday. As per patient, she does not follow a emergency man regularly but follows Dr. Nails at [facility]. Per patient, she has had the ulcer on her R hallux for a "long time" but symptoms worsened last Friday when she wore tight shoes. Since then, it has gotten progressively worse with increased redness and swelling. Pain rated 8/10, described as "tightness" around her toe, with radiation to ankle. Patient states she also noticed some drainage from the toe. Of note, there is a small ulceration on the top of the R 2nd toe, which patient states appeared 2 days ago. She has tried a solution of warm water, salt, and vinegar for the pain which helped initially. Endorses chills, diaphoresis, and dry cough. No fevers, headaches, dizziness, chest pain, sob, abdominal pain, nausea/vomiting/diarrhea/constipation, dysuria, or change in stools. On hospitalization: Patient was admitted for worsening R hallux pain and swelling, as well as infected R plantar hallux wound, likely osteomyelitis and R 2nd digit wound. Podiatry was consulted. X ray of foot showed Cortical teto erosion with periosteal teto reaction consistent with OM. wound was cleaned with saline and dressing applied using betadine, DSD. MRI of foot shows soft tissue/abcess seen at level of 1st distal phalanx 1.6x1.8 cm - increased STIR signal suggestive of osteomyelitis. IDALIA/PVR ordered shows R:1.18, L:1.13 with good waveform to the metatarsal, Right hallux wound cultures taken, came back positive for Ss Morganii, sensitive to Meropeneme. Patient was given Zosyn and Meropenem. Surgery was performed on 11/27/17, Right hallux, first metatarsal head, and sesamoid amputation with removal of all nonviable soft tissue. dressing was placed on affected foot. As per Podiatry, patient was allowed wear bearing as tolerated to the heel using surgical shoe. Post operatively, podiatry Cleansed surgical site with saline solution, dressed with xeroform, gauze, ABD, kerlix and light CATRACHO. Cefepime 1 gm was started on 11/30. on labs BUN/Cr 23/1.3 on 12/01. Nephrology consult with Dr Albrecht was placed, which recommended no acute need for renal replacement therapy at this time. home med Lisinopril was held due to acute kidney failure diagnosis BUn Cr on 12/01 - 17/0.9. Patient history of Diabetes Mellitus was contolled with home med metforming 1000 mg PO BID. Patient history of HTN was controlled with home meds Norvasc 10 mg po daily. History of hypothyroidism is treated with synthroid 75 mcg PO daily. DVT prophylaxis 5000 units sc q8 and diabetic diet. Patient was kept on Normal saline at 100 mls/hr. Patient potassium level increased to 5.6 on 12/01, patient was given one dose of Kayexalate susp 15 gm PO. On discharge: Patient is stable to discharge as per Dr Spencer and Podiatry standpoint. The following prescriptions were given to the patient: Ciprofloxacin 500mg 1 tablet per mouth twice a day for 10 days. Vitamin D (drisdol) 50,000 IU once a week. Feosol 325 1 tablet 3 times a day Please do not take Lisinopril home medication anymore. It has been explained to you that this medication can affect your kidney function. Please resume your home medications: Levothyroxine 0.075 mcg, Amlodipine 10 mg, aspiring 81 mg, metformin 100mg. Continue taking these meds as indicated. Please Follow up with Dr Conn at his office for post operative care such as wound change, suture removal and further evaluation and care. [facility] office number is [phone]. Please call to make an appointment as soon as you leave the hospital. Prescription for walker given to patient. Patient to follow up with primary care doctor at [facility] clinic at [facility] to get follow up blood work to check kidney function and hemoglobin levels. Patient is to request to follow up with a GI specialist for GI work up and stool tests, as well as colonoscopy. If symptoms recur or worsen, please return to hospital's ER. - Date & Time of H&P Date of H&P: 11/24/17 Time of H&P: 15:00 Discharge Exam - Head Exam Head Exam: ATRAUMATIC, NORMAL INSPECTION, NORMOCEPHALIC Discharge Plan - Discharge Medications Prescriptions: Ciprofloxacin HCl [Cipro] 500 mg PO BID 10 Days #20 tablet Ergocalciferol [Drisdol 50,000 Intl Units Cap] 1 cap PO QWK #10 cap Ferrous Sulfate [Feosol] 325 mg PO TID 30 Days tab - Follow Up Plan Condition: STABLE Disposition: HOME/ ROUTINE Instructions: Diabetes Exchange Diet, Osteomyelitis (DC), Foot Care for Diabetics Additional Instructions: Patient is clear to discharge as per Dr Spencer The following prescriptions were given to the patient: -Ciprofloxacin 500mg 1 tablet per mouth twice a day for 10 days -Vitamin D (drisdol) 50,000 IU once a week - Feosol 325 1 tablet 3 times a day Please do not take Lisinopril home medication anymore. It has been explained to you that this medication can affect your kidney function. Please resume your home medications: Levothyroxine 0.075 mcg, Amlodipine 10 mg, aspiring 81 mg, metformin 100mg. Continue taking these meds as indicated. Please Follow up with Dr Conn at his office for post operative care such as wound change, suture removal and further evaluation and care. [facility] office number is [phone]. Please call to make an appointment as soon as you leave the hospital Prescription for walker given to patient Patient to follow up with primary care doctor at [facility] clinic at [facility] to get follow up blood work to check kidney function and hemoglobin levels. Patient is to request to follow up with a GI specialist for GI work up and stool tests, as well as colonoscopy If symptoms recur or worsen, please return to hospital's ER. El paciente est apto para ser dado de geronimo segn vijay Spencer Las siguientes prescripciones fueron dadas al paciente: -Ciprofloxacina 500 mg 1 tableta por boca dos veces al da lisa 10 almaguer -Vitamina D (drisdol) 50,000 UI corbin vez a la semana - Feosol 325 1 tableta 3 veces al da Por favor, no tome ms medicamentos para el hogar con Lisinopril. Se le shelton explicado que selwyn medicamento puede afectar mari funcin renal. Por favor reanude edgard medicamentos en el hogar: Levothyroxine 0.075 mcg, Amlodipine 10 mg, aspirando 81 mg, metformin 100mg. Contine tomando estos medicamentos segn lo indicado. Por favor, dagmar un seguimiento con el Dr. Conn en mari consultorio para la atencin postoperatoria, vicente el cambio de la herida, la extraccin de la sutura y corbin evaluacin y cuidado adicionales. El nmero de la oficina de [facility] es [phone]. Por favor llame para hacer corbin cyndi prince pronto vicente salga del hospital Receta para andador dado al paciente Paciente para hacer un seguimiento con el mdico de atencin primaria en la clnica del vecindario en el [facility] para realizar un seguimiento del anlisis de elmira para verificar la funcin renal y los niveles de hemoglobina. El paciente debe solicitar un seguimiento con un especialista gastrointestinal para pruebas de GI y anlisis de heces, as vicente colonoscopa Si los sntomas reaparecen o empeoran, regrese a la clinton de emergencias del hospital. Referrals: [facility] at [facility] [Outside] Rufus Conn DPM [Staff Provider] -
--- NOTE | 2017-12-03 06:45 | OP ---
PROCEDURE DATE: 11/27/2017 PATIENT'S AGE: 66. PATIENT'S SEX: Female. PREOPERATIVE DIAGNOSES: Right hallux severe osteomyelitis and cellulitis. POSTOPERATIVE DIAGNOSES: Right hallux severe osteomyelitis and cellulitis. NAME OF PROCEDURE: Right partial first ray amputation. SURGEON: Rufus Conn DPM ASSISTANTS: Carolin Gregg MD, PGY [address] Bach, PGY 2. ANESTHESIA: IV sedation with local. PRIMING MACHINE OPERATOR: Zuri Huerta MD INDICATIONS: The patient is a 66-year-old female with the above diagnoses. The patient has exhausted all conservative treatments at this time and now requires surgical intervention. The patient signed the consent after careful explanation of the risks, benefits, complications, and alternatives for surgical procedure. No guarantees were given nor implied. PREPARATION: The patient was brought into the operating room and placed on the operating room table in a supine position. A timeout was performed for identification of the correct patient and procedure. After induction of IV sedation, the patient received a total of 20 mL of a 1:1 mixture of 1% lidocaine plain and 0.5% Marcaine plain in a Lal block fashion. Once local anesthesia was achieved, the right foot was then prepped and draped in normal sterile manner and the procedure began. DESCRIPTION OF PROCEDURE: Attention was then directed to the right first metatarsal where a racquet-type incision was made circumferentially at the level of the first metatarsophalangeal joint using a #15 blade. The incision was then extended down to the subcutaneous layer down to the level of the bone. Using a bone clamp to stabilize the toe, the first digit was then disarticulated from the foot at the level of the first metatarsophalangeal joint. The specimen was then passed from the operative field and sent to Pathology. Using a fresh #15 blade, all the chronic and nonviable tissues were then excisionally debrided from the surgical site. Next, utilizing a #15 blade, all periosteal tissue was carefully resected off the metatarsal. Using a sagittal saw, the first metatarsal head was then resected and passed from the operative field. All rough edges were then smoothened using a rasp and a sagittal saw. The sesamoid bones were then removed using sharp dissection. Both sesamoid bones as well as the metatarsal head were sent off to Pathology. The surgical site was then irrigated with copious amounts of normal sterile saline. The subcutaneous tissue was reapproximated with 3-0 Vicryl and skin layers were then reapproximated using a 3-0 nylon with a combination of simple and horizontal mattress suture technique. The right foot was then dressed with Xeroform, 4 x 4 gauze, and Kerlix. POSTOPERATIVE CONDITION: The patient tolerated the anesthesia and procedure well and was escorted to the floor with vital signs stable and neurovascular status intact to the right foot. The patient is to non-weightbear to the right lower extremity and Podiatry will continue to follow while in-house and will follow up with Dr. Conn upon discharge. CAROLIN GREGG MD Rufus Conn DPM
[2017-12-03] MEDS ORDERED: Multivitamin Vitamin B Complex (Nephro-Vite) Tab PO SCH (08:00)
[2017-12-04 09:04] LABS: ALBUMIN (PEP) 2.7 g/dL (3.8-4.8); ALPHA-1-GLOBULIN (PEP) 0.6 g/dL (0.2-0.3)
== END 2017-12-02 19:20 | disposition home or self-care (01) | DRG 617 ==
LOC: C.ER 09:32 → C.9E 12:42 → C.3T 15:35
PROVIDERS: ADMIT Hospitalist; ATTEND Hospitalist
PROC: 0HBMXZZ Excision of Right Foot Skin, External Approach (ICD-10-PCS; 2017-11-27)
PROC: 0Y6P0Z0 Detachment at Right 1st Toe, Complete, Open Approach (ICD-10-PCS; principal; 2017-11-27 07:45)
DX: E11.69 Type 2 diabetes mellitus with other specified complication (principal); M86.171 Other acute osteomyelitis, right ankle and foot; E11.621 Type 2 diabetes mellitus with foot ulcer; D64.9 Anemia, unspecified; N17.9 Acute kidney failure, unspecified; E11.22 Type 2 diabetes mellitus with diabetic chronic kidney disease; L97.519 Non-pressure chronic ulcer of other part of right foot with unspecified severity; Z79.4 Long term (current) use of insulin; I12.9 Hypertensive chronic kidney disease with stage 1 through stage 4 chronic kidney disease, or unspecified chronic kidney disease; E87.5 Hyperkalemia; E03.9 Hypothyroidism, unspecified; N18.9 Chronic kidney disease, unspecified; R80.9 Proteinuria, unspecified; L03.031 Cellulitis of right toe